=== PATIENT | male | born 1940 | race Caucasian/White ===

== ENCOUNTER 2020-10-09 19:42 | Inpatient (IN) | payer MEDICARE, MEDICAID ==
[~2020-10-09] VITALS: Ht 172.7 cm; Wt 63.6 kg
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
[2020-10-09 21:29] LABS: BASO % 1 % (0-3); EOS # 0.2 x10^3/uL (0.0-0.7); EOS % 4 % (0-3); HEMATOCRIT 37.5 % (39.0-53.0); HEMOGLOBIN 12.4 g/dL (13.0-17.5); LYMPH # 0.9 x10^3/uL (1.0-4.8); LYMPH % 22 % (24-48); MEAN CORPUSCULAR HEMOGLOBIN 31 pg (25-35); MEAN CORPUSCULAR HGB CONC 33 g/dL (31-37); MEAN CORPUSCULAR VOLUME 94 fL (79-100); MONO # 0.5 x10^3/uL (0.0-1.1); MONO % 11 % (0-9); NEUT # 2.5 x10^3uL (1.8-7.7); NEUT % 62 % (31-73); PLATELET COUNT 139 x10^3/uL (140-400); RED BLOOD COUNT 3.98 x10^6/uL (4.30-5.70); RED CELL DISTRIBUTION WIDTH 13.4 % (11.5-14.5); WHITE BLOOD COUNT 4.1 x10^3/uL (4.0-11.0)
[2020-10-09 21:37] LABS: CALCIUM 9.1 mg/dL (8.5-10.1); CREATININE 0.8 mg/dL (0.7-1.3); GFR 92.8; POTASSIUM 4.1 mmol/L (3.5-5.1)
[2020-10-09 21:44] LABS: ALBUMIN 3.4 g/dL (3.4-5.0); ALBUMIN/GLOBULIN RATIO 1.3 (1.0-1.7); MAGNESIUM 2.2 mg/dL (1.8-2.4); TOTAL BILIRUBIN 0.3 mg/dL (0.2-1.0); TOTAL PROTEIN 6.1 g/dL (6.4-8.2)
[2020-10-09] MEDS ORDERED: MIDAZOLAM HCL PF 5 MG/5 ML VIAL. IM ONE (23:00)
[2020-10-09] MEDS ORDERED: IV RINGERS SOLUTION,LACTATED 1,000 ML IV ONE (23:00)
--- NOTE | 2020-10-10 00:03 | EKG ---
[address] [address] Test Date: 2020-10-09 Test Time: 21:09:15 Pat Name: YASMIN MANTILLA Department: Room: Gender: M Director Heart: : 1940 Requested By: YENI COVARRUBIAS Order Number: [id number] Reading MD: Measurements Intervals [place] Rate: 61 P: 39 [place]: 156 QRS: 24 QRSD: 148 T: 12 QT: 426 QTc: 435 Interpretive Statements SINUS RHYTHM RIGHT BUNDLE BRANCH BLOCK ABNORMAL ECG RI6.02 No previous ECG available for comparison
[2020-10-10 00:33] LABS: BACTERIA,URINE MOD /HPF (0-FEW); BILIRUBIN,URINE NEG (NEG); CLARITY,URINE HAZY; COLOR,URINE YELLOW; GLUCOSE,URINE NEG (NEG); NITRITE,URINE NEG (NEG); RBC,URINE 0 /HPF (0-2); WBC,URINE >40 /HPF (0-4)
[2020-10-10] MEDS ORDERED: levoFLOXacin 500 MG TABLET PO ONE (01:00)
[2020-10-10] MEDS ORDERED: OMEP40CA45 PO (03:24)
[2020-10-10] MEDS ORDERED: OLAN5TAB7 PO (03:24)
[2020-10-10] MEDS ORDERED: POTASSIUM PO (03:24)
[2020-10-10] MEDS ORDERED: BUSP5TAB PO (03:24)
[2020-10-10] MEDS ORDERED: BISA-42 PO (03:24)
[2020-10-10] MEDS ORDERED: CALC625T PO (03:24)
[2020-10-10] MEDS ORDERED: DOCU100C28 PO (03:24)
[2020-10-10] MEDS ORDERED: DOXY25TA49 PO (03:24)
[2020-10-10] MEDS ORDERED: MEMA5TAB PO (03:24)
[2020-10-10] MEDS ORDERED: ATOR10TA60 PO (03:24)
[2020-10-10] MEDS ORDERED: TRAZ-120 PO (03:24)
[2020-10-10] MEDS ORDERED: MULT-658 PO (03:24)
[2020-10-10] MEDS ORDERED: POLY17PO5 PO (03:24)
[2020-10-10] MEDS ORDERED: ASPI-424 PO (03:24)
[2020-10-10] MEDS ORDERED: CITA20TA9 PO (03:24)
[2020-10-10] MEDS ORDERED: MELO15TA23 PO (03:24)
[2020-10-10] MEDS ORDERED: ACETAMINOPHEN 325 MG TABLET PO PRN (05:00)
[2020-10-10] MEDS ORDERED: MAGNESIUM HYDROXIDE 2,400 MG/30 ML ORAL.SUSP. PO PRN (05:00)
[2020-10-10] MEDS ORDERED: MAG HYDROX/AL HYDROX/SIMETH 30 ML ORAL.SUSP PO PRN (05:00)
[2020-10-10] MEDS ORDERED: METHYL SALICYLATE/MENTHOL TOPICAL OINTMENT 57GM TUBE. TP PRN (05:00)
[2020-10-10 05:02] VITALS: BP 151/78
[2020-10-10] MEDS ORDERED: BISACODYL TAB 5 MG TABLET.DR. PO PRN (05:30)
[2020-10-10] MEDS ORDERED: DOCUSATE SODIUM 100 MG CAPSULE PO PRN (05:30)
[2020-10-10] MEDS: ASPIRIN ENTERIC COATED 81 MG TABLET.DR. PO SCH (08:35)
[2020-10-10] MEDS: CITALOPRAM 20 MG TABLET. PO SCH ×2 (08:35→19:44)
[2020-10-10] MEDS: MEMANTINE 5 MG TABLET. PO SCH (08:35)
[2020-10-10] MEDS: MULTIVITAMIN with MINERAL TABLET. PO SCH (08:35)
[2020-10-10] MEDS: busPIRone 5 MG TABLET. PO SCH ×2 (08:35→20:19)
[2020-10-10] MEDS: CALCIUM POLYCARBOPHIL 625 MG TABLET PO SCH (08:36)
[2020-10-10] MEDS ORDERED: POTASSIUM 99 MG PO SCH (09:00)
[2020-10-10 12:09] LABS: THYROXINE 7.1 ug/dL (4.5-12.0)
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
[2020-10-10 16:05] VITALS: BP 103/69
[2020-10-10 16:41] LABS: THYROID STIM HORMONE (TSH) 0.442 uIU/mL (0.358-3.740)
[2020-10-10] MEDS: POLYETHYLENE GLYCOL 3350 17 GM PACKET. PO SCH (16:47)
[2020-10-10] MEDS: MELOXICAM 15 MG TABLET. PO SCH (19:44)
[2020-10-10] MEDS: PANTOPRAZOLE 40 MG TABLET. PO SCH (19:44)
[2020-10-10] MEDS: traZODone 50 MG TABLET. PO PRN (19:44)
[2020-10-10] MEDS: ATORVASTATIN CALCIUM 10 MG TABLET. PO SCH (19:44)
[2020-10-10] MEDS: DOXYLAMINE SUCCINATE 25 MG TABLET PO SCH (19:46)
[2020-10-10 23:16] LABS: HEMOGLOBIN A1C 5.4 % (4.8-5.6)
[2020-10-11 05:42] VITALS: BP 133/73
[2020-10-11] MEDS: CALCIUM POLYCARBOPHIL 625 MG TABLET PO SCH (09:08)
[2020-10-11] MEDS: busPIRone 5 MG TABLET. PO SCH ×2 (09:09→20:49)
[2020-10-11] MEDS: CITALOPRAM 20 MG TABLET. PO SCH (09:09)
[2020-10-11] MEDS: ASPIRIN ENTERIC COATED 81 MG TABLET.DR. PO SCH (09:09)
[2020-10-11] MEDS: MEMANTINE 5 MG TABLET. PO SCH (09:09)
[2020-10-11 16:28] VITALS: BP 114/74
[2020-10-11] MEDS: POLYETHYLENE GLYCOL 3350 17 GM PACKET. PO SCH (17:00)
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
[2020-10-11] MEDS: ATORVASTATIN CALCIUM 10 MG TABLET. PO SCH (20:49)
[2020-10-11] MEDS: PANTOPRAZOLE 40 MG TABLET. PO SCH (20:49)
[2020-10-11] MEDS: MELOXICAM 15 MG TABLET. PO SCH (20:49)
[2020-10-11] MEDS: DOXYLAMINE SUCCINATE 25 MG TABLET PO SCH (20:53)
[2020-10-12 06:15] VITALS: BP 144/76
[2020-10-12] MEDS: ASPIRIN ENTERIC COATED 81 MG TABLET.DR. PO SCH (08:04)
[2020-10-12] MEDS: MULTIVITAMIN with MINERAL TABLET. PO SCH (08:04)
[2020-10-12] MEDS: MEMANTINE 5 MG TABLET. PO SCH (08:05)
[2020-10-12] MEDS: CALCIUM POLYCARBOPHIL 625 MG TABLET PO SCH (08:05)
[2020-10-12] MEDS: busPIRone 5 MG TABLET. PO SCH ×2 (08:05→20:41)
[2020-10-12 16:10] VITALS: BP 107/67
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
[2020-10-12] MEDS: POLYETHYLENE GLYCOL 3350 17 GM PACKET. PO SCH (16:53)
[2020-10-12] MEDS: ATORVASTATIN CALCIUM 10 MG TABLET. PO SCH (20:41)
[2020-10-12] MEDS: PANTOPRAZOLE 40 MG TABLET. PO SCH (20:41)
[2020-10-12] MEDS: MELOXICAM 15 MG TABLET. PO SCH (20:41)
[2020-10-12] MEDS: DOXYCYCLINE HYCLATE 100 MG TABLET PO SCH (20:43)
[2020-10-12] MEDS: DOXYLAMINE SUCCINATE 25 MG TABLET PO SCH (21:00)
--- NOTE | 2020-10-12 22:27 | PN ---
DATE: 10/12/2020 SUBJECTIVE: The patient was seen today, met with the staff, chart reviewed. Staff reports he is confused, resistive to care, assisting ADLs, flat affect, poor eye contact and the patient's appetite decreased. The patient also treated for UTI. OBSERVATION: VITAL SIGNS: Temperature 97.2, blood pressure 144/76, pulse 84, respiration 18, O2 sat 100%. Slept about 7 hours last night. CURRENT MEDICATIONS: The patient's current medications include Namenda 10 mg daily that was increased from 5 to 10 today, olanzapine 2.5 mg at bedtime p.r.n., trazodone 50 mg at night p.r.n. The patient is not having any side effects LABORATORY: Reviewed. ASSESSMENT: 1. Dementia, most likely Alzheimer versus vascular with behavior disturbances. 2. Impulse control disorder, unspecified. 3. Generalized anxiety disorder. PLAN: Continue with the current treatment. LENGTH OF STAY: Ten days. ADWOA WALDEN MD DR: TETO/alvino JOB#: [id number] / [id number]
[2020-10-13 06:33] VITALS: BP 162/88
[2020-10-13] MEDS: MEMANTINE 10 MG TABLET. PO SCH (08:58)
[2020-10-13] MEDS: CITALOPRAM 20 MG TABLET. PO SCH (08:58)
[2020-10-13] MEDS: CALCIUM POLYCARBOPHIL 625 MG TABLET PO SCH (08:58)
[2020-10-13] MEDS: DOXYCYCLINE HYCLATE 100 MG TABLET PO SCH ×2 (08:58→20:35)
[2020-10-13] MEDS: busPIRone 5 MG TABLET. PO SCH ×2 (08:58→20:35)
[2020-10-13] MEDS: ASPIRIN ENTERIC COATED 81 MG TABLET.DR. PO SCH (08:58)
[2020-10-13 15:34] VITALS: BP 105/72
[2020-10-13] MEDS: POLYETHYLENE GLYCOL 3350 17 GM PACKET. PO SCH (16:55)
[2020-10-13] MEDS: MELOXICAM 15 MG TABLET. PO SCH (20:35)
[2020-10-13] MEDS: PANTOPRAZOLE 40 MG TABLET. PO SCH (20:35)
[2020-10-13] MEDS: ATORVASTATIN CALCIUM 10 MG TABLET. PO SCH (20:35)
[2020-10-13] MEDS: DOXYLAMINE SUCCINATE 25 MG TABLET PO SCH (20:35)
[2020-10-14 06:28] VITALS: BP 126/75
[2020-10-14] MEDS: MEMANTINE 10 MG TABLET. PO SCH (07:58)
[2020-10-14] MEDS: busPIRone 5 MG TABLET. PO SCH ×2 (07:58→20:34)
[2020-10-14] MEDS: ASPIRIN ENTERIC COATED 81 MG TABLET.DR. PO SCH (07:58)
[2020-10-14] MEDS: DOXYCYCLINE HYCLATE 100 MG TABLET PO SCH ×2 (07:59→20:34)
[2020-10-14] MEDS: CALCIUM POLYCARBOPHIL 625 MG TABLET PO SCH (07:59)
[2020-10-14] MEDS: CITALOPRAM 20 MG TABLET. PO SCH (07:59)
[2020-10-14 09:37] LABS: BASO % 1 % (0-3); EOS # 0.2 x10^3/uL (0.0-0.7); EOS % 4 % (0-3); HEMATOCRIT 41.7 % (39.0-53.0); HEMOGLOBIN 13.9 g/dL (13.0-17.5); LYMPH # 0.8 x10^3/uL (1.0-4.8); LYMPH % 18 % (24-48); MEAN CORPUSCULAR HEMOGLOBIN 31 pg (25-35); MEAN CORPUSCULAR HGB CONC 33 g/dL (31-37); MEAN CORPUSCULAR VOLUME 94 fL (79-100); MONO # 0.4 x10^3/uL (0.0-1.1); MONO % 9 % (0-9); NEUT # 3.2 x10^3uL (1.8-7.7); NEUT % 68 % (31-73); PLATELET COUNT 155 x10^3/uL (140-400); RED BLOOD COUNT 4.44 x10^6/uL (4.30-5.70); RED CELL DISTRIBUTION WIDTH 13.4 % (11.5-14.5); WHITE BLOOD COUNT 4.6 x10^3/uL (4.0-11.0)
[2020-10-14 09:46] LABS: ALBUMIN/GLOBULIN RATIO 1.3 (1.0-1.7); CALCIUM 9.3 mg/dL (8.5-10.1); CREATININE 0.8 mg/dL (0.7-1.3); GFR 92.8; TOTAL BILIRUBIN 0.7 mg/dL (0.2-1.0)
[2020-10-14 15:47] VITALS: BP 123/65
[2020-10-14] MEDS: POLYETHYLENE GLYCOL 3350 17 GM PACKET. PO SCH (17:20)
[2020-10-14] MEDS: PANTOPRAZOLE 40 MG TABLET. PO SCH (20:34)
[2020-10-14] MEDS: MELOXICAM 15 MG TABLET. PO SCH (20:34)
[2020-10-14] MEDS: ATORVASTATIN CALCIUM 10 MG TABLET. PO SCH (20:34)
[2020-10-14] MEDS: DOXYLAMINE SUCCINATE 25 MG TABLET PO SCH (20:35)
--- NOTE | 2020-10-14 21:59 | PDOC ---
Exam Note: Leonard Note: Late entry for 10/13/2020. Please also refer to the separate dictated note~for this date of service dictated separately.~Patient seen individually. Discussed the patient with Nursing staff reviewed the chart.~Reviewed interim history and current functioning. Reviewed vital signs,~Labs/ Radiology~and current medic ations noted below. Continue current treatment with the changes noted in the dictated addendum note Assessment: Vital Signs/I&O: Vital Signs Date Time Temp Pulse Resp B/P (MAP) Pulse Ox O2 Delivery O2 Flow Rate FiO2 10/14/20 15:47 97.6 88 17 123/65 (84) 98 10/14/20 06:28 Room Air I & O 0 10/13/20 10/13/20 10/14/20 15:00 23:00 07:00 Intake Total 960 ml 360 ml Balance 960 ml 360 ml Labs: Laboratory Tests Test 10/14/20 09:00 White Blood Count 4.6 x10^3/uL (4.0-11.0) Red Blood Count 4.44 x10^6/uL (4.30-5.70) Hemoglobin 13.9 g/dL (13.0-17.5) Hematocrit 41.7 % (39.0-53.0) Mean Corpuscular Volume 94 fL (79-100) Mean Corpuscular Hemoglobin 31 pg (25-35) Mean Corpuscular Hemoglobin Concent 33 g/dL (31-37) Red Cell Distribution Width 13.4 % (11.5-14.5) Platelet Count 155 x10^3/uL (140-400) Neutrophils (%) (Auto) 68 % (31-73) Lymphocytes (%) (Auto) 18 % (24-48) L Monocytes (%) (Auto) 9 % (0-9) Eosinophils (%) (Auto) 4 % (0-3) H Basophils (%) (Auto) 1 % (0-3) Neutrophils # (Auto) 3.2 x10^3uL (1.8-7.7) Lymphocytes # (Auto) 0.8 x10^3/uL (1.0-4.8) L Monocytes # (Auto) 0.4 x10^3/uL (0.0-1.1) Eosinophils # (Auto) 0.2 x10^3/uL (0.0-0.7) Basophils # (Auto) 0.0 x10^3/uL (0.0-0.2) Sodium Level 145 mmol/L (136-145) Potassium Level 4.0 mmol/L (3.5-5.1) Chloride Level 107 mmol/L (98-107) Carbon Dioxide Level 31 mmol/L (21-32) Anion Gap 7 (6-14) Blood Urea Nitrogen 25 mg/dL (8-26) Creatinine 0.8 mg/dL (0.7-1.3) Estimated GFR (Cockcroft-Gault) 92.8 BUN/Creatinine Ratio 31 (6-20) H Glucose Level 132 mg/dL (70-99) H Calcium Level 9.3 mg/dL (8.5-10.1) Total Bilirubin 0.7 mg/dL (0.2-1.0) Aspartate Amino Transferase (AST) 14 U/L (15-37) L Alanine Aminotransferase (ALT) 23 U/L (16-63) Alkaline Phosphatase 81 U/L (46-116) Total Protein 7.0 g/dL (6.4-8.2) Albumin 4.0 g/dL (3.4-5.0) Albumin/Globulin Ratio 1.3 (1.0-1.7) Current Medications: Meds: Laboratory Tests Test 10/14/20 09:00 White Blood Count 4.6 x10^3/uL Red Blood Count 4.44 x10^6/uL Hemoglobin 13.9 g/dL Hematocrit 41.7 % Mean Corpuscular Volume 94 fL Mean Corpuscular Hemoglobin 31 pg Mean Corpuscular Hemoglobin Concent 33 g/dL Red Cell Distribution Width 13.4 % Platelet Count 155 x10^3/uL Neutrophils (%) (Auto) 68 % Lymphocytes (%) (Auto) 18 % Monocytes (%) (Auto) 9 % Eosinophils (%) (Auto) 4 % Basophils (%) (Auto) 1 % Neutrophils # (Auto) 3.2 x10^3uL Lymphocytes # (Auto) 0.8 x10^3/uL Monocytes # (Auto) 0.4 x10^3/uL Eosinophils # (Auto) 0.2 x10^3/uL Basophils # (Auto) 0.0 x10^3/uL Sodium Level 145 mmol/L Potassium Level 4.0 mmol/L Chloride Level 107 mmol/L Carbon Dioxide Level 31 mmol/L Anion Gap 7 Blood Urea Nitrogen 25 mg/dL Creatinine 0.8 mg/dL Estimated GFR (Cockcroft-Gault) 92.8 BUN/Creatinine Ratio 31 Glucose Level 132 mg/dL Calcium Level 9.3 mg/dL Total Bilirubin 0.7 mg/dL Aspartate Amino Transf (AST/SGOT) 14 U/L Alanine Aminotransferase (ALT/SGPT) 23 U/L Alkaline Phosphatase 81 U/L Total Protein 7.0 g/dL Albumin 4.0 g/dL Albumin/Globulin Ratio 1.3 Current Medications Medications (Trade) Dose Ordered Sig/Kiera Route PRN Reason Start Time Stop Time Status Last Admin Dose Admin Midazolam HCl (Versed) 5 mg 1X ONCE IM 10/09/20 23:00 10/09/20 23:07 DC 10/09/20 23:23 Lactated Ringer's 1,000 ml @ 1,000 mls/hr 1X ONCE IV 10/09/20 23:00 10/09/20 23:59 DC Levofloxacin (Levaquin) 750 mg 1X ONCE PO 10/10/20 01:00 10/10/20 01:01 DC 10/10/20 04:27 Acetaminophen (Tylenol) 650 mg PRN Q6HRS PRN PO MILD PAIN / TEMP > 100.3'F 10/10/20 05:00 Multi-Ingredient Ointment (Analgesic Patterson) 1 gera PRN QID PRN TP MUSCLE PAIN 10/10/20 05:00 Al Hydroxide/Mg Hydroxide (Mylanta Plus Xs) 15 ml PRN AFTMEALHC PRN PO DYSPEPSIA 10/10/20 05:00 Magnesium Hydroxide (Milk Of Magnesia) 2,400 mg PRN QHS PRN PO CONSTIPATION 2ND CHOICE 10/10/20 05:00 Aspirin (Aspirin Enteric Coated) 81 mg DAILY08 PO 10/10/20 08:00 10/14/20 07:58 Atorvastatin Calcium (Lipitor) 10 mg QHS PO 10/10/20 21:00 10/14/20 20:34 Bisacodyl (Dulcolax Tab) 5 mg PRN DAILY PRN PO CONSTIPATION 1ST CHOICE 10/10/20 05:30 Buspirone HCl (Buspar) 5 mg BID PO 10/10/20 09:00 10/14/20 20:34 Calcium Polycarbophil (Fibercon) 1,250 mg DAILY PO 10/10/20 09:00 10/14/20 07:59 Citalopram Hydrobromide (CeleXA) 20 mg DAILY PO 10/10/20 09:00 10/14/20 07:59 Docusate Sodium (Colace) 100 mg PRN DAILY PRN PO HARD STOOLS 10/10/20 05:30 Meloxicam (Mobic) 15 mg HS PO 10/10/20 21:00 10/14/20 20:34 Memantine (Namenda) 5 mg DAILY PO 10/10/20 09:00 10/12/20 16:01 DC 10/12/20 08:05 Olanzapine (ZyPREXA ZYDIS) 2.5 mg PRN BID PRN PO ANXIETY / AGITATION 10/10/20 05:30 10/10/20 23:18 Polyethylene Glycol (miraLAX) 17 gm DAILYWSUP PO 10/10/20 17:00 10/14/20 17:20 Trazodone HCl (Desyrel) 50 mg PRN QHS PRN PO INSOMNIA 10/10/20 05:30 10/10/20 19:44 Doxylamine Succinate (Unisom) 25 mg QHS PO 10/10/20 21:00 10/14/20 20:35 Multivitamins/ Calcium (Thera-M Plus) 1 tab QMWF@0900 PO 10/10/20 09:00 10/12/20 08:04 Pantoprazole Sodium (Protonix) 40 mg HS PO 10/10/20 21:00 10/14/20 20:34 Non-Formulary Medication ([Potassium Tablet] ) 99 mg DAILY PO 10/10/20 09:00 UNV Doxycycline Hyclate (Vibra-Tab) 100 mg BID PO 10/12/20 21:00 10/21/20 22:00 10/14/20 20:34 Memantine (Namenda) 10 mg DAILY PO 10/13/20 09:00 10/14/20 07:58 I have reviewed the current psychotropics carefully including drug interactions. Risk benefit ratio favors no change other than as noted in my dictated progress note. Diagnosis: Problems: (1) Dementia of the Alzheimer's type with early onset with behavioral disturbance (2) Anxiety disorder, unspecified (3) Impulse control disorder, unspecified (4) Major neurocognitive disorder CHAGO CORONA MD Oct 14, 2020 21:59
[2020-10-15] MEDS: traZODone 50 MG TABLET. PO PRN (01:22)
[2020-10-15 06:11] VITALS: BP 146/77
--- NOTE | 2020-10-15 07:13 | PDOC ---
Exam Note: Leonard Note: This note is a late entry for 10/13/2020 covers elements not covered in my initial note. Subjective: Dr. Latif had covered for me from 29 September till October, and I assumed care of the patients from 13 October. I have reviewed information and interim progress notes at some length with Dr. Latif. The patient was seen individually in the evening of 10/13/2020 with Ganesh LEAL, discussed and reviewed the chart. The patient just slept 7-1/4 hours previous night. He remains confused. No behaviors noted. He takes medications. He is oriented to himself. Review of Systems: No CV, , pulmonary, eye system symptoms on review. Reliability poor. Mental Status Exam: The patient is oriented to himself. Insight and judgment, recent and remote memory, attention and concentration, fund of knowledge is poor consistent with his diagnoses. As I questioned him closely he was able to tell me his name but he is just oriented to himself. He was wearing a red shirt. Laboratory Data: Reviewed. Impression: Major neurocognitive disorder Alzheimer vascular with delusion, depression, behavioral disturbance. Impulse control disorder unspecified. Anxiety disorder unspecified. Plan: I have carefully reviewed the current psychotropics and drug interactions. Risk-benefit ratio favors no change for now. Adjust further as clinically indicated. Assessment: Vital Signs/I&O: Vital Signs Date Time Temp Pulse Resp B/P (MAP) Pulse Ox O2 Delivery O2 Flow Rate FiO2 10/15/20 06:11 97.7 60 18 146/77 (100) 98 Room Air I & O 10/14/20 10/14/20 10/15/20 15:00 23:00 07:00 Intake Total 685 ml 345 ml Balance 685 ml 345 ml Labs: Laboratory Tests Test 10/14/20 09:00 White Blood Count 4.6 x10^3/uL (4.0-11.0) Red Blood Count 4.44 x10^6/uL (4.30-5.70) Hemoglobin 13.9 g/dL (13.0-17.5) Hematocrit 41.7 % (39.0-53.0) Mean Corpuscular Volume 94 fL (79-100) Mean Corpuscular Hemoglobin 31 pg (25-35) Mean Corpuscular Hemoglobin Concent 33 g/dL (31-37) Red Cell Distribution Width 13.4 % (11.5-14.5) Platelet Count 155 x10^3/uL (140-400) Neutrophils (%) (Auto) 68 % (31-73) Lymphocytes (%) (Auto) 18 % (24-48) L Monocytes (%) (Auto) 9 % (0-9) Eosinophils (%) (Auto) 4 % (0-3) H Basophils (%) (Auto) 1 % (0-3) Neutrophils # (Auto) 3.2 x10^3uL (1.8-7.7) Lymphocytes # (Auto) 0.8 x10^3/uL (1.0-4.8) L Monocytes # (Auto) 0.4 x10^3/uL (0.0-1.1) Eosinophils # (Auto) 0.2 x10^3/uL (0.0-0.7) Basophils # (Auto) 0.0 x10^3/uL (0.0-0.2) Sodium Level 145 mmol/L (136-145) Potassium Level 4.0 mmol/L (3.5-5.1) Chloride Level 107 mmol/L (98-107) Carbon Dioxide Level 31 mmol/L (21-32) Anion Gap 7 (6-14) Blood Urea Nitrogen 25 mg/dL (8-26) Creatinine 0.8 mg/dL (0.7-1.3) Estimated GFR (Cockcroft-Gault) 92.8 BUN/Creatinine Ratio 31 (6-20) H Glucose Level 132 mg/dL (70-99) H Calcium Level 9.3 mg/dL (8.5-10.1) Total Bilirubin 0.7 mg/dL (0.2-1.0) Aspartate Amino Transferase (AST) 14 U/L (15-37) L Alanine Aminotransferase (ALT) 23 U/L (16-63) Alkaline Phosphatase 81 U/L (46-116) Total Protein 7.0 g/dL (6.4-8.2) Albumin 4.0 g/dL (3.4-5.0) Albumin/Globulin Ratio 1.3 (1.0-1.7) Current Medications: Meds: Laboratory Tests Test 10/14/20 09:00 White Blood Count 4.6 x10^3/uL Red Blood Count 4.44 x10^6/uL Hemoglobin 13.9 g/dL Hematocrit 41.7 % Mean Corpuscular Volume 94 fL Mean Corpuscular Hemoglobin 31 pg Mean Corpuscular Hemoglobin Concent 33 g/dL Red Cell Distribution Width 13.4 % Platelet Count 155 x10^3/uL Neutrophils (%) (Auto) 68 % Lymphocytes (%) (Auto) 18 % Monocytes (%) (Auto) 9 % Eosinophils (%) (Auto) 4 % Basophils (%) (Auto) 1 % Neutrophils # (Auto) 3.2 x10^3uL Lymphocytes # (Auto) 0.8 x10^3/uL Monocytes # (Auto) 0.4 x10^3/uL Eosinophils # (Auto) 0.2 x10^3/uL Basophils # (Auto) 0.0 x10^3/uL Sodium Level 145 mmol/L Potassium Level 4.0 mmol/L Chloride Level 107 mmol/L Carbon Dioxide Level 31 mmol/L Anion Gap 7 Blood Urea Nitrogen 25 mg/dL Creatinine 0.8 mg/dL Estimated GFR (Cockcroft-Gault) 92.8 BUN/Creatinine Ratio 31 Glucose Level 132 mg/dL Calcium Level 9.3 mg/dL Total Bilirubin 0.7 mg/dL Aspartate Amino Transf (AST/SGOT) 14 U/L Alanine Aminotransferase (ALT/SGPT) 23 U/L Alkaline Phosphatase 81 U/L Total Protein 7.0 g/dL Albumin 4.0 g/dL Albumin/Globulin Ratio 1.3 Current Medications Medications (Trade) Dose Ordered Sig/Kiera Route PRN Reason Start Time Stop Time Status Last Admin Dose Admin Midazolam HCl (Versed) 5 mg 1X ONCE IM 10/09/20 23:00 10/09/20 23:07 DC 10/09/20 23:23 Lactated Ringer's 1,000 ml @ 1,000 mls/hr 1X ONCE IV 10/09/20 23:00 10/09/20 23:59 DC Levofloxacin (Levaquin) 750 mg 1X ONCE PO 10/10/20 01:00 10/10/20 01:01 DC 10/10/20 04:27 Acetaminophen (Tylenol) 650 mg PRN Q6HRS PRN PO MILD PAIN / TEMP > 100.3'F 10/10/20 05:00 Multi-Ingredient Ointment (Analgesic [place]) 1 gera PRN QID PRN TP MUSCLE PAIN 10/10/20 05:00 Al Hydroxide/Mg Hydroxide (Mylanta Plus Xs) 15 ml PRN AFTMEALHC PRN PO DYSPEPSIA 10/10/20 05:00 Magnesium Hydroxide (Milk Of Magnesia) 2,400 mg PRN QHS PRN PO CONSTIPATION 2ND CHOICE 10/10/20 05:00 Aspirin (Aspirin Enteric Coated) 81 mg DAILY08 PO 10/10/20 08:00 10/14/20 07:58 Atorvastatin Calcium (Lipitor) 10 mg QHS PO 10/10/20 21:00 10/14/20 20:34 Bisacodyl (Dulcolax Tab) 5 mg PRN DAILY PRN PO CONSTIPATION 1ST CHOICE 10/10/20 05:30 Buspirone HCl (Buspar) 5 mg BID PO 10/10/20 09:00 10/14/20 20:34 Calcium Polycarbophil (Fibercon) 1,250 mg DAILY PO 10/10/20 09:00 10/14/20 07:59 Citalopram Hydrobromide (CeleXA) 20 mg DAILY PO 10/10/20 09:00 10/14/20 07:59 Docusate Sodium (Colace) 100 mg PRN DAILY PRN PO HARD STOOLS 10/10/20 05:30 Meloxicam (Mobic) 15 mg HS PO 10/10/20 21:00 10/14/20 20:34 Memantine (Namenda) 5 mg DAILY PO 10/10/20 09:00 10/12/20 16:01 DC 10/12/20 08:05 Olanzapine (ZyPREXA ZYDIS) 2.5 mg PRN BID PRN PO ANXIETY / AGITATION 10/10/20 05:30 10/10/20 23:18 Polyethylene Glycol (miraLAX) 17 gm DAILYWSUP PO 10/10/20 17:00 10/14/20 17:20 Trazodone HCl (Desyrel) 50 mg PRN QHS PRN PO INSOMNIA 10/10/20 05:30 10/15/20 01:22 Doxylamine Succinate (Unisom) 25 mg QHS PO 10/10/20 21:00 10/14/20 20:35 Multivitamins/ Calcium (Thera-M Plus) 1 tab QMWF@0900 PO 10/10/20 09:00 10/12/20 08:04 Pantoprazole Sodium (Protonix) 40 mg HS PO 10/10/20 21:00 10/14/20 20:34 Non-Formulary Medication ([Potassium Tablet] ) 99 mg DAILY PO 10/10/20 09:00 UNV Doxycycline Hyclate (Vibra-Tab) 100 mg BID PO 10/12/20 21:00 10/21/20 22:00 10/14/20 20:34 Memantine (Namenda) 10 mg DAILY PO 10/13/20 09:00 10/14/20 07:58 I have reviewed the current psychotropics carefully including drug interactions. Risk benefit ratio favors no change other than as noted in my dictated progress note. Diagnosis: Problems: (1) Dementia in Alzheimer's disease with delusions (2) Dementia in Alzheimer's disease with depression (3) Dementia, vascular, with delusions (4) Dementia, vascular, with depression (5) Dementia of the Alzheimer's type with early onset with behavioral disturbance (6) Anxiety disorder, unspecified (7) Impulse control disorder, unspecified (8) Major neurocognitive disorder CHAGO CORONA MD Oct 15, 2020 07:13
--- NOTE | 2020-10-15 07:58 | PDOC ---
Exam Note: Leonard Note: This note is a late entry for 10/14/2020 covers elements not covered in my initial note. Subjective: The patient was seen individually in the evening of 10/14/2020 with Ryan LEAL, discussed and reviewed the chart. The patient just slept 3-3/4 hours previous night. He remains confused, wandering the unit. Previous night he was combative with cares during showers, but better during the day today. Review of Systems: No CV, , pulmonary, eye system symptoms on review. Reliability poor. Mental Status Exam: As I met with the patient, he got up from his chair, stood up, was interacting quite affably but oriented just to himself. Insight and judgment, recent and remote memory, attention and concentration, fund of knowledge is poor consistent with his diagnoses. Laboratory Data: Reviewed. Impression: Major neurocognitive disorder Alzheimer vascular with delusion, depression, behavioral disturbance. Impulse control disorder unspecified. Anxiety disorder unspecified. Plan: No change from initial note. Assessment: Vital Signs/I&O: Vital Signs Date Time Temp Pulse Resp B/P (MAP) Pulse Ox O2 Delivery O2 Flow Rate FiO2 10/15/20 06:11 97.7 60 18 146/77 (100) 98 Room Air I & O 10/14/20 10/14/20 10/15/20 15:00 23:00 07:00 Intake Total 685 ml 345 ml Balance 685 ml 345 ml Labs: Laboratory Tests Test 10/14/20 09:00 White Blood Count 4.6 x10^3/uL (4.0-11.0) Red Blood Count 4.44 x10^6/uL (4.30-5.70) Hemoglobin 13.9 g/dL (13.0-17.5) Hematocrit 41.7 % (39.0-53.0) Mean Corpuscular Volume 94 fL (79-100) Mean Corpuscular Hemoglobin 31 pg (25-35) Mean Corpuscular Hemoglobin Concent 33 g/dL (31-37) Red Cell Distribution Width 13.4 % (11.5-14.5) Platelet Count 155 x10^3/uL (140-400) Neutrophils (%) (Auto) 68 % (31-73) Lymphocytes (%) (Auto) 18 % (24-48) L Monocytes (%) (Auto) 9 % (0-9) Eosinophils (%) (Auto) 4 % (0-3) H Basophils (%) (Auto) 1 % (0-3) Neutrophils # (Auto) 3.2 x10^3uL (1.8-7.7) Lymphocytes # (Auto) 0.8 x10^3/uL (1.0-4.8) L Monocytes # (Auto) 0.4 x10^3/uL (0.0-1.1) Eosinophils # (Auto) 0.2 x10^3/uL (0.0-0.7) Basophils # (Auto) 0.0 x10^3/uL (0.0-0.2) Sodium Level 145 mmol/L (136-145) Potassium Level 4.0 mmol/L (3.5-5.1) Chloride Level 107 mmol/L (98-107) Carbon Dioxide Level 31 mmol/L (21-32) Anion Gap 7 (6-14) Blood Urea Nitrogen 25 mg/dL (8-26) Creatinine 0.8 mg/dL (0.7-1.3) Estimated GFR (Cockcroft-Gault) 92.8 BUN/Creatinine Ratio 31 (6-20) H Glucose Level 132 mg/dL (70-99) H Calcium Level 9.3 mg/dL (8.5-10.1) Total Bilirubin 0.7 mg/dL (0.2-1.0) Aspartate Amino Transferase (AST) 14 U/L (15-37) L Alanine Aminotransferase (ALT) 23 U/L (16-63) Alkaline Phosphatase 81 U/L (46-116) Total Protein 7.0 g/dL (6.4-8.2) Albumin 4.0 g/dL (3.4-5.0) Albumin/Globulin Ratio 1.3 (1.0-1.7) Current Medications: Meds: Laboratory Tests Test 10/14/20 09:00 White Blood Count 4.6 x10^3/uL Red Blood Count 4.44 x10^6/uL Hemoglobin 13.9 g/dL Hematocrit 41.7 % Mean Corpuscular Volume 94 fL Mean Corpuscular Hemoglobin 31 pg Mean Corpuscular Hemoglobin Concent 33 g/dL Red Cell Distribution Width 13.4 % Platelet Count 155 x10^3/uL Neutrophils (%) (Auto) 68 % Lymphocytes (%) (Auto) 18 % Monocytes (%) (Auto) 9 % Eosinophils (%) (Auto) 4 % Basophils (%) (Auto) 1 % Neutrophils # (Auto) 3.2 x10^3uL Lymphocytes # (Auto) 0.8 x10^3/uL Monocytes # (Auto) 0.4 x10^3/uL Eosinophils # (Auto) 0.2 x10^3/uL Basophils # (Auto) 0.0 x10^3/uL Sodium Level 145 mmol/L Potassium Level 4.0 mmol/L Chloride Level 107 mmol/L Carbon Dioxide Level 31 mmol/L Anion Gap 7 Blood Urea Nitrogen 25 mg/dL Creatinine 0.8 mg/dL Estimated GFR (Cockcroft-Gault) 92.8 BUN/Creatinine Ratio 31 Glucose Level 132 mg/dL Calcium Level 9.3 mg/dL Total Bilirubin 0.7 mg/dL Aspartate Amino Transf (AST/SGOT) 14 U/L Alanine Aminotransferase (ALT/SGPT) 23 U/L Alkaline Phosphatase 81 U/L Total Protein 7.0 g/dL Albumin 4.0 g/dL Albumin/Globulin Ratio 1.3 Current Medications Medications (Trade) Dose Ordered Sig/Kiera Route PRN Reason Start Time Stop Time Status Last Admin Dose Admin Midazolam HCl (Versed) 5 mg 1X ONCE IM 10/09/20 23:00 10/09/20 23:07 DC 10/09/20 23:23 Lactated Ringer's 1,000 ml @ 1,000 mls/hr 1X ONCE IV 10/09/20 23:00 10/09/20 23:59 DC Levofloxacin (Levaquin) 750 mg 1X ONCE PO 10/10/20 01:00 10/10/20 01:01 DC 10/10/20 04:27 Acetaminophen (Tylenol) 650 mg PRN Q6HRS PRN PO MILD PAIN / TEMP > 100.3'F 10/10/20 05:00 Multi-Ingredient Ointment (Analgesic [place]) 1 gera PRN QID PRN TP MUSCLE PAIN 10/10/20 05:00 Al Hydroxide/Mg Hydroxide (Mylanta Plus Xs) 15 ml PRN AFTMEALHC PRN PO DYSPEPSIA 10/10/20 05:00 Magnesium Hydroxide (Milk Of Magnesia) 2,400 mg PRN QHS PRN PO CONSTIPATION 2ND CHOICE 10/10/20 05:00 Aspirin (Aspirin Enteric Coated) 81 mg DAILY08 PO 10/10/20 08:00 10/14/20 07:58 Atorvastatin Calcium (Lipitor) 10 mg QHS PO 10/10/20 21:00 10/14/20 20:34 Bisacodyl (Dulcolax Tab) 5 mg PRN DAILY PRN PO CONSTIPATION 1ST CHOICE 10/10/20 05:30 Buspirone HCl (Buspar) 5 mg BID PO 10/10/20 09:00 10/14/20 20:34 Calcium Polycarbophil (Fibercon) 1,250 mg DAILY PO 10/10/20 09:00 10/14/20 07:59 Citalopram Hydrobromide (CeleXA) 20 mg DAILY PO 10/10/20 09:00 10/14/20 07:59 Docusate Sodium (Colace) 100 mg PRN DAILY PRN PO HARD STOOLS 10/10/20 05:30 Meloxicam (Mobic) 15 mg HS PO 10/10/20 21:00 10/14/20 20:34 Memantine (Namenda) 5 mg DAILY PO 10/10/20 09:00 10/12/20 16:01 DC 10/12/20 08:05 Olanzapine (ZyPREXA ZYDIS) 2.5 mg PRN BID PRN PO ANXIETY / AGITATION 10/10/20 05:30 10/10/20 23:18 Polyethylene Glycol (miraLAX) 17 gm DAILYWSUP PO 10/10/20 17:00 10/14/20 17:20 Trazodone HCl (Desyrel) 50 mg PRN QHS PRN PO INSOMNIA 10/10/20 05:30 10/15/20 01:22 Doxylamine Succinate (Unisom) 25 mg QHS PO 10/10/20 21:00 10/14/20 20:35 Multivitamins/ Calcium (Thera-M Plus) 1 tab QMWF@0900 PO 10/10/20 09:00 10/12/20 08:04 Pantoprazole Sodium (Protonix) 40 mg HS PO 10/10/20 21:00 10/14/20 20:34 Non-Formulary Medication ([Potassium Tablet] ) 99 mg DAILY PO 10/10/20 09:00 UNV Doxycycline Hyclate (Vibra-Tab) 100 mg BID PO 10/12/20 21:00 10/21/20 22:00 10/14/20 20:34 Memantine (Namenda) 10 mg DAILY PO 10/13/20 09:00 10/14/20 07:58 I have reviewed the current psychotropics carefully including drug interactions. Risk benefit ratio favors no change other than as noted in my dictated progress note. Diagnosis: Problems: (1) Impulse control disorder, unspecified (2) Anxiety disorder, unspecified (3) Dementia of the Alzheimer's type with early onset with behavioral disturba nce (4) Major neurocognitive disorder (5) Dementia, vascular, with depression (6) Dementia, vascular, with delusions (7) Dementia in Alzheimer's disease with depression (8) Dementia in Alzheimer's disease with delusions CHAGO CORONA MD Oct 15, 2020 07:58
[2020-10-15] MEDS: ASPIRIN ENTERIC COATED 81 MG TABLET.DR. PO SCH (08:38)
[2020-10-15] MEDS: MEMANTINE 10 MG TABLET. PO SCH (08:39)
[2020-10-15] MEDS: MULTIVITAMIN with MINERAL TABLET. PO SCH (08:39)
[2020-10-15] MEDS: DOXYCYCLINE HYCLATE 100 MG TABLET PO SCH ×2 (08:39→19:43)
[2020-10-15] MEDS: busPIRone 5 MG TABLET. PO SCH ×2 (08:39→19:43)
[2020-10-15] MEDS: CITALOPRAM 20 MG TABLET. PO SCH (08:39)
[2020-10-15] MEDS: CALCIUM POLYCARBOPHIL 625 MG TABLET PO SCH (08:39)
[2020-10-15 16:04] VITALS: BP 88/58
[2020-10-15] MEDS: POLYETHYLENE GLYCOL 3350 17 GM PACKET. PO SCH (16:25)
[2020-10-15] MEDS: ATORVASTATIN CALCIUM 10 MG TABLET. PO SCH (19:43)
[2020-10-15] MEDS: DOXYLAMINE SUCCINATE 25 MG TABLET PO SCH (19:43)
[2020-10-15] MEDS: PANTOPRAZOLE 40 MG TABLET. PO SCH (19:43)
[2020-10-15] MEDS: MELOXICAM 15 MG TABLET. PO SCH (19:43)
[2020-10-15 20:00] VITALS: BP 109/62
--- NOTE | 2020-10-15 22:11 | PDOC ---
Exam Note: Leonadr Note: Please also refer to the separate dictated note~for this date of service dictated separately.~Patient seen individually. Discussed the patient with Nursing staff reviewed the chart.~Reviewed interim history and current functioning. Reviewed vital signs,~Labs/ Radiology~and current medications noted below. Continue current treatment with the changes noted in the dictated addendum note Assessment: Vital Signs/I&O: Vital Signs Date Time Temp Pulse Resp B/P (MAP) Pulse Ox O2 Delivery O2 Flow Rate FiO2 10/15/20 20:00 109/62 (78) 10/15/20 16:04 97.9 79 16 94 10/15/20 06:11 Room Air I & O 10/14/20 10/14/20 10/15/20 15:00 23:00 07:00 Intake Total 685 ml 345 ml Balance 685 ml 345 ml Current Medications: Meds: Current Medications Medications (Trade) Dose Ordered Sig/Kiera Route PRN Reason Start Time Stop Time Status Last Admin Dose Admin Midazolam HCl (Versed) 5 mg 1X ONCE IM 10/09/20 23:00 10/09/20 23:07 DC 10/09/20 23:23 Lactated Ringer's 1,000 ml @ 1,000 mls/hr 1X ONCE IV 10/09/20 23:00 10/09/20 23:59 DC Levofloxacin (Levaquin) 750 mg 1X ONCE PO 10/10/20 01:00 10/10/20 01:01 DC 10/10/20 04:27 Acetaminophen (Tylenol) 650 mg PRN Q6HRS PRN PO MILD PAIN / TEMP > 100.3'F 10/10/20 05:00 Multi-Ingredient Ointment (Analgesic [place]) 1 gera PRN QID PRN TP MUSCLE PAIN 10/10/20 05:00 Al Hydroxide/Mg Hydroxide (Mylanta Plus Xs) 15 ml PRN AFTMEALHC PRN PO DYSPEPSIA 10/10/20 05:00 Magnesium Hydroxide (Milk Of Magnesia) 2,400 mg PRN QHS PRN PO CONSTIPATION 2ND CHOICE 10/10/20 05:00 Aspirin (Aspirin Enteric Coated) 81 mg DAILY08 PO 10/10/20 08:00 10/15/20 08:38 Atorvastatin Calcium (Lipitor) 10 mg QHS PO 10/10/20 21:00 10/15/20 19:43 Bisacodyl (Dulcolax Tab) 5 mg PRN DAILY PRN PO CONSTIPATION 1ST CHOICE 10/10/20 05:30 Buspirone HCl (Buspar) 5 mg BID PO 10/10/20 09:00 10/15/20 19:43 Calcium Polycarbophil (Fibercon) 1,250 mg DAILY PO 10/10/20 09:00 10/15/20 08:39 Citalopram Hydrobromide (CeleXA) 20 mg DAILY PO 10/10/20 09:00 10/15/20 08:39 Docusate Sodium (Colace) 100 mg PRN DAILY PRN PO HARD STOOLS 10/10/20 05:30 Meloxicam (Mobic) 15 mg HS PO 10/10/20 21:00 10/15/20 19:43 Memantine (Namenda) 5 mg DAILY PO 10/10/20 09:00 10/12/20 16:01 DC 10/12/20 08:05 Olanzapine (ZyPREXA ZYDIS) 2.5 mg PRN BID PRN PO ANXIETY / AGITATION 10/10/20 05:30 10/10/20 23:18 Polyethylene Glycol (miraLAX) 17 gm DAILYWSUP PO 10/10/20 17:00 10/15/20 16:25 Trazodone HCl (Desyrel) 50 mg PRN QHS PRN PO INSOMNIA 10/10/20 05:30 10/15/20 01:22 Doxylamine Succinate (Unisom) 25 mg QHS PO 10/10/20 21:00 10/15/20 19:43 Multivitamins/ Calcium (Thera-M Plus) 1 tab QMWF@0900 PO 10/10/20 09:00 10/15/20 08:39 Pantoprazole Sodium (Protonix) 40 mg HS PO 10/10/20 21:00 10/15/20 19:43 Non-Formulary Medication ([Potassium Tablet] ) 99 mg DAILY PO 10/10/20 09:00 UNV Doxycycline Hyclate (Vibra-Tab) 100 mg BID PO 10/12/20 21:00 10/21/20 22:00 10/15/20 19:43 Memantine (Namenda) 10 mg DAILY PO 10/13/20 09:00 10/15/20 08:39 I have reviewed the current psychotropics carefully including drug interactions. Risk benefit ratio favors no change other than as noted in my dictated progress note. Diagnosis: Problems: (1) Impulse control disorder, unspecified (2) Anxiety disorder, unspecified (3) Dementia of the Alzheimer's type with early onset with behavioral disturbance (4) Major neurocognitive disorder (5) Dementia, vascular, with depression (6) Dementia, vascular, with delusions (7) Dementia in Alzheimer's disease with depression (8) Dementia in Alzheimer's disease with delusions CHAGO CORONA MD Oct 15, 2020 22:11
[2020-10-16 06:01] VITALS: BP 109/70
[2020-10-16] MEDS: ASPIRIN ENTERIC COATED 81 MG TABLET.DR. PO SCH (07:50)
[2020-10-16] MEDS: busPIRone 5 MG TABLET. PO SCH ×2 (07:50→20:43)
[2020-10-16] MEDS: MEMANTINE 10 MG TABLET. PO SCH (07:50)
[2020-10-16] MEDS: CITALOPRAM 20 MG TABLET. PO SCH (07:50)
[2020-10-16] MEDS: DOXYCYCLINE HYCLATE 100 MG TABLET PO SCH ×2 (07:50→20:44)
[2020-10-16] MEDS: CALCIUM POLYCARBOPHIL 625 MG TABLET PO SCH (07:50)
--- NOTE | 2020-10-16 08:27 | PDOC ---
Exam Note: Leonard Note: This note is a late entry for 10/15/2020 covers elements not covered in my initial note. Subjective: The patient was seen individually in the evening of 10/15/2020 with Vickie LEAL, discussed and reviewed the chart. The patient just slept 7 hours previous night. He has been confused, wandering, oriented to name. He does UTI on doxycycline and weights have been checked daily. Review of Systems: No CV, , pulmonary, eye system symptoms on review. Mental Status Exam: The patient is oriented to himself. He is quite confused as I met with him in the evening. He was having chocolate ice-cream and able to recognize this. Insight and judgment, recent and remote memory, attention and concentration, fund of knowledge is poor consistent with his diagnoses. Laboratory Data: Reviewed. Impression: Major neurocognitive disorder Alzheimer vascular with delusion, depression, behavioral disturbance. Impulse control disorder unspecified. Anxiety disorder unspecified. Plan: No change from initial note. Treat the UTI. Adjust as clinically indicated. Assessment: Vital Signs/I&O: Vital Signs Date Time Temp Pulse Resp B/P (MAP) Pulse Ox O2 Delivery O2 Flow Rate FiO2 10/16/20 06:01 97.2 67 16 109/70 (83) 96 10/15/20 06:11 Room Air I & O 10/15/20 10/15/20 10/16/20 15:00 23:00 07:00 Intake Total 720 ml 580 ml Balance 720 ml 580 ml Current Medications: Meds: Current Medications Medications (Trade) Dose Ordered Sig/Kiera Route PRN Reason Start Time Stop Time Status Last Admin Dose Admin Midazolam HCl (Versed) 5 mg 1X ONCE IM 10/09/20 23:00 10/09/20 23:07 DC 10/09/20 23:23 Lactated Ringer's 1,000 ml @ 1,000 mls/hr 1X ONCE IV 10/09/20 23:00 10/09/20 23:59 DC Levofloxacin (Levaquin) 750 mg 1X ONCE PO 10/10/20 01:00 10/10/20 01:01 DC 10/10/20 04:27 Acetaminophen (Tylenol) 650 mg PRN Q6HRS PRN PO MILD PAIN / TEMP > 100.3'F 10/10/20 05:00 Multi-Ingredient Ointment (Analgesic [place]) 1 gera PRN QID PRN TP MUSCLE PAIN 10/10/20 05:00 Al Hydroxide/Mg Hydroxide (Mylanta Plus Xs) 15 ml PRN AFTMEALHC PRN PO DYSPEPSIA 10/10/20 05:00 Magnesium Hydroxide (Milk Of Magnesia) 2,400 mg PRN QHS PRN PO CONSTIPATION 2ND CHOICE 10/10/20 05:00 Aspirin (Aspirin Enteric Coated) 81 mg DAILY08 PO 10/10/20 08:00 10/16/20 07:50 Atorvastatin Calcium (Lipitor) 10 mg QHS PO 10/10/20 21:00 10/15/20 19:43 Bisacodyl (Dulcolax Tab) 5 mg PRN DAILY PRN PO CONSTIPATION 1ST CHOICE 10/10/20 05:30 Buspirone HCl (Buspar) 5 mg BID PO 10/10/20 09:00 10/16/20 07:50 Calcium Polycarbophil (Fibercon) 1,250 mg DAILY PO 10/10/20 09:00 10/16/20 07:50 Citalopram Hydrobromide (CeleXA) 20 mg DAILY PO 10/10/20 09:00 10/16/20 07:50 Docusate Sodium (Colace) 100 mg PRN DAILY PRN PO HARD STOOLS 10/10/20 05:30 Meloxicam (Mobic) 15 mg HS PO 10/10/20 21:00 10/15/20 19:43 Memantine (Namenda) 5 mg DAILY PO 10/10/20 09:00 10/12/20 16:01 DC 10/12/20 08:05 Olanzapine (ZyPREXA ZYDIS) 2.5 mg PRN BID PRN PO ANXIETY / AGITATION 10/10/20 05:30 10/10/20 23:18 Polyethylene Glycol (miraLAX) 17 gm DAILYWSUP PO 10/10/20 17:00 10/15/20 16:25 Trazodone HCl (Desyrel) 50 mg PRN QHS PRN PO INSOMNIA 10/10/20 05:30 10/15/20 01:22 Doxylamine Succinate (Unisom) 25 mg QHS PO 10/10/20 21:00 10/15/20 19:43 Multivitamins/ Calcium (Thera-M Plus) 1 tab QMWF@0900 PO 10/10/20 09:00 10/15/20 08:39 Pantoprazole Sodium (Protonix) 40 mg HS PO 10/10/20 21:00 10/15/20 19:43 Non-Formulary Medication ([Potassium Tablet] ) 99 mg DAILY PO 10/10/20 09:00 UNV Doxycycline Hyclate (Vibra-Tab) 100 mg BID PO 10/12/20 21:00 10/21/20 22:00 10/16/20 07:50 Memantine (Namenda) 10 mg DAILY PO 10/13/20 09:00 10/16/20 07:50 Lactobacillus Rhamnosus (Culturelle) 1 cap BID PO 10/16/20 09:00 I have reviewed the current psychotropics carefully including drug interactions. Risk benefit ratio favors no change other than as noted in my dictated progress note. Diagnosis: Problems: (1) Impulse control disorder, unspecified (2) Anxiety disorder, unspecified (3) Dementia of the Alzheimer's type with early onset with behavioral disturbance (4) Major neurocognitive disorder (5) Dementia, vascular, with depression (6) Dementia, vascular, with delusions (7) Dementia in Alzheimer's disease with depression (8) Dementia in Alzheimer's disease with delusions CHAGO CORONA MD Oct 16, 2020 08:27
[2020-10-16] MEDS: LACTOBACILLUS RHAMNOSUS GG 1 CAPSULE. PO SCH ×2 (14:22→20:44)
[2020-10-16 16:18] VITALS: BP 132/85
[2020-10-16] MEDS: POLYETHYLENE GLYCOL 3350 17 GM PACKET. PO SCH (16:58)
[2020-10-16] MEDS: PANTOPRAZOLE 40 MG TABLET. PO SCH (20:43)
[2020-10-16] MEDS: MELOXICAM 15 MG TABLET. PO SCH (20:43)
[2020-10-16] MEDS: ATORVASTATIN CALCIUM 10 MG TABLET. PO SCH (20:44)
[2020-10-16] MEDS: MELATONIN 3 MG TABLET PO SCH (20:47)
--- NOTE | 2020-10-16 21:52 | PDOC ---
Exam Note: Leonard Note: Please also refer to the separate dictated note~for this date of service dictated separately.~Patient seen individually. Discussed the patient with Nursing staff reviewed the chart.~Reviewed interim history and current functioning. Reviewed vital signs,~Labs/ Radiology~and current medications noted below. Continue current treatment with the changes noted in the dictated addendum note Assessment: Vital Signs/I&O: Vital Signs Date Time Temp Pulse Resp B/P (MAP) Pulse Ox O2 Delivery O2 Flow Rate FiO2 10/16/20 16:18 97.4 96 20 132/85 (101) 95 10/15/20 06:11 Room Air I & O 10/15/20 10/15/20 10/16/20 15:00 23:00 07:00 Intake Total 720 ml 580 ml Balance 720 ml 580 ml Current Medications: Meds: Current Medications Medications (Trade) Dose Ordered Sig/Kiera Route PRN Reason Start Time Stop Time Status Last Admin Dose Admin Midazolam HCl (Versed) 5 mg 1X ONCE IM 10/09/20 23:00 10/09/20 23:07 DC 10/09/20 23:23 Lactated Ringer's 1,000 ml @ 1,000 mls/hr 1X ONCE IV 10/09/20 23:00 10/09/20 23:59 DC Levofloxacin (Levaquin) 750 mg 1X ONCE PO 10/10/20 01:00 10/10/20 01:01 DC 10/10/20 04:27 Acetaminophen (Tylenol) 650 mg PRN Q6HRS PRN PO MILD PAIN / TEMP > 100.3'F 10/10/20 05:00 Multi-Ingredient Ointment (Analgesic [place]) 1 gera PRN QID PRN TP MUSCLE PAIN 10/10/20 05:00 Al Hydroxide/Mg Hydroxide (Mylanta Plus Xs) 15 ml PRN AFTMEALHC PRN PO DYSPEPSIA 10/10/20 05:00 Magnesium Hydroxide (Milk Of Magnesia) 2,400 mg PRN QHS PRN PO CONSTIPATION 2ND CHOICE 10/10/20 05:00 Aspirin (Aspirin Enteric Coated) 81 mg DAILY08 PO 10/10/20 08:00 10/16/20 07:50 Atorvastatin Calcium (Lipitor) 10 mg QHS PO 10/10/20 21:00 10/16/20 20:44 Bisacodyl (Dulcolax Tab) 5 mg PRN DAILY PRN PO CONSTIPATION 1ST CHOICE 10/10/20 05:30 Buspirone HCl (Buspar) 5 mg BID PO 10/10/20 09:00 10/16/20 20:43 Calcium Polycarbophil (Fibercon) 1,250 mg DAILY PO 10/10/20 09:00 10/16/20 07:50 Citalopram Hydrobromide (CeleXA) 20 mg DAILY PO 10/10/20 09:00 10/16/20 07:50 Docusate Sodium (Colace) 100 mg PRN DAILY PRN PO HARD STOOLS 10/10/20 05:30 Meloxicam (Mobic) 15 mg HS PO 10/10/20 21:00 10/16/20 20:43 Memantine (Namenda) 5 mg DAILY PO 10/10/20 09:00 10/12/20 16:01 DC 10/12/20 08:05 Olanzapine (ZyPREXA ZYDIS) 2.5 mg PRN BID PRN PO ANXIETY / AGITATION 10/10/20 05:30 10/10/20 23:18 Polyethylene Glycol (miraLAX) 17 gm DAILYWSUP PO 10/10/20 17:00 10/16/20 16:58 Trazodone HCl (Desyrel) 50 mg PRN QHS PRN PO INSOMNIA 10/10/20 05:30 10/15/20 01:22 Doxylamine Succinate (Unisom) 25 mg QHS PO 10/10/20 21:00 10/16/20 17:38 DC 10/15/20 19:43 Multivitamins/ Calcium (Thera-M Plus) 1 tab QMWF@0900 PO 10/10/20 09:00 10/15/20 08:39 Pantoprazole Sodium (Protonix) 40 mg HS PO 10/10/20 21:00 10/16/20 20:43 Non-Formulary Medication ([Potassium Tablet] ) 99 mg DAILY PO 10/10/20 09:00 UNV Doxycycline Hyclate (Vibra-Tab) 100 mg BID PO 10/12/20 21:00 10/21/20 22:00 10/16/20 20:44 Memantine (Namenda) 10 mg DAILY PO 10/13/20 09:00 10/16/20 07:50 Lactobacillus Rhamnosus (Culturelle) 1 cap BID PO 10/16/20 09:00 10/16/20 20:44 Melatonin (Melatonin) 3 mg HS PO 10/16/20 21:00 10/16/20 20:47 Current Medications Medications (Trade) Dose Ordered Sig/Kiera Route PRN Reason Start Time Stop Time Status Last Admin Dose Admin Lactobacillus Rhamnosus (Culturelle) 1 cap BID PO 10/16/20 09:00 10/16/20 20:44 Melatonin (Melatonin) 3 mg HS PO 10/16/20 21:00 10/16/20 20:47 I have reviewed the current psychotropics carefully including drug interactions. Risk benefit ratio favors no change other than as noted in my dictated progress note. 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
[2020-10-17 06:29] VITALS: BP 134/77
--- NOTE | 2020-10-17 07:31 | PDOC ---
Exam Note: Leonard Note: This note is a late entry for 10/16/2020 covers elements not covered in my initial note. Subjective: The patient was seen individually in the evening of 10/16/2020 with Vickie LEAL, discussed and reviewed the chart. The patient just slept 6-1/4 hours previous night. He has been confused. He has not been agitated or aggressive. Review of Systems: No CV, , pulmonary, eye system symptoms on review. Mental Status Exam: The patient is oriented to himself. Insight and judgment, recent and remote memory, attention and concentration, fund of knowledge is poor consistent with his diagnoses. Laboratory Data: Reviewed. Impression: Major neurocognitive disorder Alzheimer vascular with delusion, depression, behavioral disturbance. Impulse control disorder unspecified. Anxiety disorder unspecified. Plan: No change from initial note. We will go ahead and stop Unisom 25 mg h.s. given his dementia and the potential anticholinergic side effects worsening some of the confusion and we will in place of this start him on melatonin 3 mg h.s. Maintain Namenda, trazodone p.r.n., Zyprexa p.r.n., BuSpar and Celexa unchanged for now. Assessment: Vital Signs/I&O: Vital Signs Date Time Temp Pulse Resp B/P (MAP) Pulse Ox O2 Delivery O2 Flow Rate FiO2 10/17/20 06:29 97.9 67 20 134/77 (96) 98 10/15/20 06:11 Room Air I & O 10/16/20 10/16/20 10/17/20 15:00 23:00 07:00 Intake Total 840 ml 360 ml Balance 840 ml 360 ml Current Medications: Meds: Current Medications Medications (Trade) Dose Ordered Sig/Kiera Route PRN Reason Start Time Stop Time Status Last Admin Dose Admin Midazolam HCl (Versed) 5 mg 1X ONCE IM 10/09/20 23:00 10/09/20 23:07 DC 10/09/20 23:23 Lactated Ringer's 1,000 ml @ 1,000 mls/hr 1X ONCE IV 10/09/20 23:00 10/09/20 23:59 DC Levofloxacin (Levaquin) 750 mg 1X ONCE PO 10/10/20 01:00 10/10/20 01:01 DC 10/10/20 04:27 Acetaminophen (Tylenol) 650 mg PRN Q6HRS PRN PO MILD PAIN / TEMP > 100.3'F 10/10/20 05:00 Multi-Ingredient Ointment (Analgesic [place]) 1 gera PRN QID PRN TP MUSCLE PAIN 10/10/20 05:00 Al Hydroxide/Mg Hydroxide (Mylanta Plus Xs) 15 ml PRN AFTMEALHC PRN PO DYSPEPSIA 10/10/20 05:00 Magnesium Hydroxide (Milk Of Magnesia) 2,400 mg PRN QHS PRN PO CONSTIPATION 2ND CHOICE 10/10/20 05:00 Aspirin (Aspirin Enteric Coated) 81 mg DAILY08 PO 10/10/20 08:00 10/16/20 07:50 Atorvastatin Calcium (Lipitor) 10 mg QHS PO 10/10/20 21:00 10/16/20 20:44 Bisacodyl (Dulcolax Tab) 5 mg PRN DAILY PRN PO CONSTIPATION 1ST CHOICE 10/10/20 05:30 Buspirone HCl (Buspar) 5 mg BID PO 10/10/20 09:00 10/16/20 20:43 Calcium Polycarbophil (Fibercon) 1,250 mg DAILY PO 10/10/20 09:00 10/16/20 07:50 Citalopram Hydrobromide (CeleXA) 20 mg DAILY PO 10/10/20 09:00 10/16/20 07:50 Docusate Sodium (Colace) 100 mg PRN DAILY PRN PO HARD STOOLS 10/10/20 05:30 Meloxicam (Mobic) 15 mg HS PO 10/10/20 21:00 10/16/20 20:43 Memantine (Namenda) 5 mg DAILY PO 10/10/20 09:00 10/12/20 16:01 DC 10/12/20 08:05 Olanzapine (ZyPREXA ZYDIS) 2.5 mg PRN BID PRN PO ANXIETY / AGITATION 10/10/20 05:30 10/10/20 23:18 Polyethylene Glycol (miraLAX) 17 gm DAILYWSUP PO 10/10/20 17:00 10/16/20 16:58 Trazodone HCl (Desyrel) 50 mg PRN QHS PRN PO INSOMNIA 10/10/20 05:30 10/15/20 01:22 Doxylamine Succinate (Unisom) 25 mg QHS PO 10/10/20 21:00 10/16/20 17:38 DC 10/15/20 19:43 Multivitamins/ Calcium (Thera-M Plus) 1 tab QMWF@0900 PO 10/10/20 09:00 10/15/20 08:39 Pantoprazole Sodium (Protonix) 40 mg HS PO 10/10/20 21:00 10/16/20 20:43 Non-Formulary Medication ([Potassium Tablet] ) 99 mg DAILY PO 10/10/20 09:00 UNV Doxycycline Hyclate (Vibra-Tab) 100 mg BID PO 10/12/20 21:00 10/21/20 22:00 10/16/20 20:44 Memantine (Namenda) 10 mg DAILY PO 10/13/20 09:00 10/16/20 07:50 Lactobacillus Rhamnosus (Culturelle) 1 cap BID PO 10/16/20 09:00 10/16/20 20:44 Melatonin (Melatonin) 3 mg HS PO 10/16/20 21:00 10/16/20 20:47 Current Medications Medications (Trade) Dose Ordered Sig/Kiera Route PRN Reason Start Time Stop Time Status Last Admin Dose Admin Lactobacillus Rhamnosus (Culturelle) 1 cap BID PO 10/16/20 09:00 10/16/20 20:44 Melatonin (Melatonin) 3 mg HS PO 10/16/20 21:00 10/16/20 20:47 I have reviewed the current psychotropics carefully including drug interactions. Risk benefit ratio favors no change other than as noted in my dictated progress note. 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
[2020-10-17] MEDS: DOXYCYCLINE HYCLATE 100 MG TABLET PO SCH ×2 (09:36→21:08)
[2020-10-17] MEDS: LACTOBACILLUS RHAMNOSUS GG 1 CAPSULE. PO SCH ×2 (09:36→21:08)
[2020-10-17] MEDS: MEMANTINE 10 MG TABLET. PO SCH (09:36)
[2020-10-17] MEDS: MULTIVITAMIN with MINERAL TABLET. PO SCH (09:36)
[2020-10-17] MEDS: CALCIUM POLYCARBOPHIL 625 MG TABLET PO SCH (09:36)
[2020-10-17] MEDS: busPIRone 5 MG TABLET. PO SCH ×2 (09:36→21:08)
[2020-10-17] MEDS: ASPIRIN ENTERIC COATED 81 MG TABLET.DR. PO SCH (09:36)
[2020-10-17] MEDS: CITALOPRAM 20 MG TABLET. PO SCH (09:36)
[2020-10-17 15:48] VITALS: BP 110/70
[2020-10-17] MEDS: POLYETHYLENE GLYCOL 3350 17 GM PACKET. PO SCH (17:21)
[2020-10-17] MEDS: PANTOPRAZOLE 40 MG TABLET. PO SCH (21:08)
[2020-10-17] MEDS: MELOXICAM 15 MG TABLET. PO SCH (21:08)
[2020-10-17] MEDS: MELATONIN 3 MG TABLET PO SCH (21:08)
[2020-10-17] MEDS: ATORVASTATIN CALCIUM 10 MG TABLET. PO SCH (21:08)
--- NOTE | 2020-10-17 21:55 | PDOC ---
Exam Note: Leonard Note: Please also refer to the separate dictated note~for this date of service dictated separately.~Patient seen individually. Discussed the patient with Nursing staff reviewed the chart.~Reviewed interim history and current functioning. Reviewed vital signs,~Labs/ Radiology~and current medications noted below. Continue current treatment with the changes noted in the dictated addendum note Assessment: Vital Signs/I&O: Vital Signs Date Time Temp Pulse Resp B/P (MAP) Pulse Ox O2 Delivery O2 Flow Rate FiO2 10/17/20 15:48 97.7 65 16 110/70 (83) 96 10/15/20 06:11 Room Air I & O 10/16/20 10/16/20 10/17/20 15:00 23:00 07:00 Intake Total 840 ml 360 ml Balance 840 ml 360 ml Current Medications: Meds: Current Medications Medications (Trade) Dose Ordered Sig/Kiera Route PRN Reason Start Time Stop Time Status Last Admin Dose Admin Midazolam HCl (Versed) 5 mg 1X ONCE IM 10/09/20 23:00 10/09/20 23:07 DC 10/09/20 23:23 Lactated Ringer's 1,000 ml @ 1,000 mls/hr 1X ONCE IV 10/09/20 23:00 10/09/20 23:59 DC Levofloxacin (Levaquin) 750 mg 1X ONCE PO 10/10/20 01:00 10/10/20 01:01 DC 10/10/20 04:27 Acetaminophen (Tylenol) 650 mg PRN Q6HRS PRN PO MILD PAIN / TEMP > 100.3'F 10/10/20 05:00 Multi-Ingredient Ointment (Analgesic [place]) 1 gera PRN QID PRN TP MUSCLE PAIN 10/10/20 05:00 Al Hydroxide/Mg Hydroxide (Mylanta Plus Xs) 15 ml PRN AFTMEALHC PRN PO DYSPEPSIA 10/10/20 05:00 Magnesium Hydroxide (Milk Of Magnesia) 2,400 mg PRN QHS PRN PO CONSTIPATION 2ND CHOICE 10/10/20 05:00 Aspirin (Aspirin Enteric Coated) 81 mg DAILY08 PO 10/10/20 08:00 10/17/20 09:36 Atorvastatin Calcium (Lipitor) 10 mg QHS PO 10/10/20 21:00 10/17/20 21:08 Bisacodyl (Dulcolax Tab) 5 mg PRN DAILY PRN PO CONSTIPATION 1ST CHOICE 10/10/20 05:30 Buspirone HCl (Buspar) 5 mg BID PO 10/10/20 09:00 10/17/20 21:08 Calcium Polycarbophil (Fibercon) 1,250 mg DAILY PO 10/10/20 09:00 10/17/20 09:36 Citalopram Hydrobromide (CeleXA) 20 mg DAILY PO 10/10/20 09:00 10/17/20 09:36 Docusate Sodium (Colace) 100 mg PRN DAILY PRN PO HARD STOOLS 10/10/20 05:30 Meloxicam (Mobic) 15 mg HS PO 10/10/20 21:00 10/17/20 21:08 Memantine (Namenda) 5 mg DAILY PO 10/10/20 09:00 10/12/20 16:01 DC 10/12/20 08:05 Olanzapine (ZyPREXA ZYDIS) 2.5 mg PRN BID PRN PO ANXIETY / AGITATION 10/10/20 05:30 10/10/20 23:18 Polyethylene Glycol (miraLAX) 17 gm DAILYWSUP PO 10/10/20 17:00 10/17/20 17:21 Trazodone HCl (Desyrel) 50 mg PRN QHS PRN PO INSOMNIA 10/10/20 05:30 10/15/20 01:22 Doxylamine Succinate (Unisom) 25 mg QHS PO 10/10/20 21:00 10/16/20 17:38 DC 10/15/20 19:43 Multivitamins/ Calcium (Thera-M Plus) 1 tab QMWF@0900 PO 10/10/20 09:00 10/17/20 09:36 Pantoprazole Sodium (Protonix) 40 mg HS PO 10/10/20 21:00 10/17/20 21:08 Non-Formulary Medication ([Potassium Tablet] ) 99 mg DAILY PO 10/10/20 09:00 UNV Doxycycline Hyclate (Vibra-Tab) 100 mg BID PO 10/12/20 21:00 10/21/20 22:00 10/17/20 21:08 Memantine (Namenda) 10 mg DAILY PO 10/13/20 09:00 10/17/20 09:36 Lactobacillus Rhamnosus (Culturelle) 1 cap BID PO 10/16/20 09:00 10/17/20 21:08 Melatonin (Melatonin) 3 mg HS PO 10/16/20 21:00 10/17/20 21:08 I have reviewed the current psychotropics carefully including drug interactions. Risk benefit ratio favors no change other than as noted in my dictated progress note. 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
[2020-10-18 06:17] VITALS: BP 152/88
--- NOTE | 2020-10-18 06:57 | PDOC ---
Exam Note: Leonard Note: This note is a late entry for 10/17/2020 covers elements not covered in my initial note. Subjective: The patient was seen individually in the evening of 10/17/2020 with Gabby LEAL, discussed and reviewed the chart. The patient just slept 3-1/4 hours previous night. He has been confused. He was irritable in the morning, better later in the afternoon. Review of Systems: No CV, , pulmonary, eye system symptoms on review. Mental Status Exam: The patient is oriented to himself. Insight and judgment, recent and remote memory, attention and concentration, fund of knowledge is poor consistent with his diagnoses. Laboratory Data: Reviewed. Impression: Major neurocognitive disorder Alzheimer vascular with delusion, depression, behavioral disturbance. Impulse control disorder unspecified. Anxiety disorder unspecified. Plan: No change from initial note. Assessment: Vital Signs/I&O: Vital Signs Date Time Temp Pulse Resp B/P (MAP) Pulse Ox O2 Delivery O2 Flow Rate FiO2 10/18/20 06:17 97.6 77 16 152/88 (109) 98 10/15/20 06:11 Room Air I & O 10/17/20 10/17/20 10/18/20 15:00 23:00 07:00 Intake Total 720 ml 340 ml Balance 720 ml 340 ml Current Medications: Meds: Current Medications Medications (Trade) Dose Ordered Sig/Kiera Route PRN Reason Start Time Stop Time Status Last Admin Dose Admin Midazolam HCl (Versed) 5 mg 1X ONCE IM 10/09/20 23:00 10/09/20 23:07 DC 10/09/20 23:23 Lactated Ringer's 1,000 ml @ 1,000 mls/hr 1X ONCE IV 10/09/20 23:00 10/09/20 23:59 DC Levofloxacin (Levaquin) 750 mg 1X ONCE PO 10/10/20 01:00 10/10/20 01:01 DC 10/10/20 04:27 Acetaminophen (Tylenol) 650 mg PRN Q6HRS PRN PO MILD PAIN / TEMP > 100.3'F 10/10/20 05:00 Multi-Ingredient Ointment (Analgesic [place]) 1 gera PRN QID PRN TP MUSCLE PAIN 10/10/20 05:00 Al Hydroxide/Mg Hydroxide (Mylanta Plus Xs) 15 ml PRN AFTMEALHC PRN PO DYSPEPSIA 10/10/20 05:00 Magnesium Hydroxide (Milk Of Magnesia) 2,400 mg PRN QHS PRN PO CONSTIPATION 2ND CHOICE 10/10/20 05:00 Aspirin (Aspirin Enteric Coated) 81 mg DAILY08 PO 10/10/20 08:00 10/17/20 09:36 Atorvastatin Calcium (Lipitor) 10 mg QHS PO 10/10/20 21:00 10/17/20 21:08 Bisacodyl (Dulcolax Tab) 5 mg PRN DAILY PRN PO CONSTIPATION 1ST CHOICE 10/10/20 05:30 Buspirone HCl (Buspar) 5 mg BID PO 10/10/20 09:00 10/17/20 21:08 Calcium Polycarbophil (Fibercon) 1,250 mg DAILY PO 10/10/20 09:00 10/17/20 09:36 Citalopram Hydrobromide (CeleXA) 20 mg DAILY PO 10/10/20 09:00 10/17/20 09:36 Docusate Sodium (Colace) 100 mg PRN DAILY PRN PO HARD STOOLS 10/10/20 05:30 Meloxicam (Mobic) 15 mg HS PO 10/10/20 21:00 10/17/20 21:08 Memantine (Namenda) 5 mg DAILY PO 10/10/20 09:00 10/12/20 16:01 DC 10/12/20 08:05 Olanzapine (ZyPREXA ZYDIS) 2.5 mg PRN BID PRN PO ANXIETY / AGITATION 10/10/20 05:30 10/10/20 23:18 Polyethylene Glycol (miraLAX) 17 gm DAILYWSUP PO 10/10/20 17:00 10/17/20 17:21 Trazodone HCl (Desyrel) 50 mg PRN QHS PRN PO INSOMNIA 10/10/20 05:30 10/15/20 01:22 Doxylamine Succinate (Unisom) 25 mg QHS PO 10/10/20 21:00 10/16/20 17:38 DC 10/15/20 19:43 Multivitamins/ Calcium (Thera-M Plus) 1 tab QMWF@0900 PO 10/10/20 09:00 10/17/20 09:36 Pantoprazole Sodium (Protonix) 40 mg HS PO 10/10/20 21:00 10/17/20 21:08 Non-Formulary Medication ([Potassium Tablet] ) 99 mg DAILY PO 10/10/20 09:00 UNV Doxycycline Hyclate (Vibra-Tab) 100 mg BID PO 10/12/20 21:00 10/21/20 22:00 10/17/20 21:08 Memantine (Namenda) 10 mg DAILY PO 10/13/20 09:00 10/17/20 09:36 Lactobacillus Rhamnosus (Culturelle) 1 cap BID PO 10/16/20 09:00 10/17/20 21:08 Melatonin (Melatonin) 3 mg HS PO 10/16/20 21:00 10/17/20 21:08 I have reviewed the current psychotropics carefully including drug interactions. Risk benefit ratio favors no change other than as noted in my dictated progress note. 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
[2020-10-18] MEDS: MEMANTINE 10 MG TABLET. PO SCH (09:02)
[2020-10-18] MEDS: DOXYCYCLINE HYCLATE 100 MG TABLET PO SCH ×2 (09:02→20:44)
[2020-10-18] MEDS: LACTOBACILLUS RHAMNOSUS GG 1 CAPSULE. PO SCH ×2 (09:02→20:44)
[2020-10-18] MEDS: ASPIRIN ENTERIC COATED 81 MG TABLET.DR. PO SCH (09:02)
[2020-10-18] MEDS: CITALOPRAM 20 MG TABLET. PO SCH (09:02)
[2020-10-18] MEDS: CALCIUM POLYCARBOPHIL 625 MG TABLET PO SCH (09:02)
[2020-10-18] MEDS: busPIRone 5 MG TABLET. PO SCH ×2 (09:02→20:44)
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
[2020-10-18 16:03] VITALS: BP 126/73
[2020-10-18] MEDS: POLYETHYLENE GLYCOL 3350 17 GM PACKET. PO SCH (16:58)
[2020-10-18] MEDS: MELOXICAM 15 MG TABLET. PO SCH (20:44)
[2020-10-18] MEDS: PANTOPRAZOLE 40 MG TABLET. PO SCH (20:44)
[2020-10-18] MEDS: ATORVASTATIN CALCIUM 10 MG TABLET. PO SCH (20:44)
[2020-10-18] MEDS: MELATONIN 3 MG TABLET PO SCH (20:44)
--- NOTE | 2020-10-18 22:13 | PDOC ---
Exam Note: Leonard Note: Please also refer to the separate dictated note~for this date of service dictated separately.~Patient seen individually. Discussed the patient with Nursing staff reviewed the chart.~Reviewed interim history and current functioning. Reviewed vital signs,~Labs/ Radiology~and current medications noted below. Continue current treatment with the changes noted in the dictated addendum note Assessment: Vital Signs/I&O: Vital Signs Date Time Temp Pulse Resp B/P (MAP) Pulse Ox O2 Delivery O2 Flow Rate FiO2 10/18/20 16:03 98.4 60 18 126/73 (90) 96 10/15/20 06:11 Room Air I & O 10/17/20 10/17/20 10/18/20 15:00 23:00 07:00 Intake Total 720 ml 340 ml Balance 720 ml 340 ml Current Medications: Meds: Current Medications Medications (Trade) Dose Ordered Sig/Kiera Route PRN Reason Start Time Stop Time Status Last Admin Dose Admin Midazolam HCl (Versed) 5 mg 1X ONCE IM 10/09/20 23:00 10/09/20 23:07 DC 10/09/20 23:23 Lactated Ringer's 1,000 ml @ 1,000 mls/hr 1X ONCE IV 10/09/20 23:00 10/09/20 23:59 DC Levofloxacin (Levaquin) 750 mg 1X ONCE PO 10/10/20 01:00 10/10/20 01:01 DC 10/10/20 04:27 Acetaminophen (Tylenol) 650 mg PRN Q6HRS PRN PO MILD PAIN / TEMP > 100.3'F 10/10/20 05:00 Multi-Ingredient Ointment (Analgesic [place]) 1 gera PRN QID PRN TP MUSCLE PAIN 10/10/20 05:00 Al Hydroxide/Mg Hydroxide (Mylanta Plus Xs) 15 ml PRN AFTMEALHC PRN PO DYSPEPSIA 10/10/20 05:00 Magnesium Hydroxide (Milk Of Magnesia) 2,400 mg PRN QHS PRN PO CONSTIPATION 2ND CHOICE 10/10/20 05:00 Aspirin (Aspirin Enteric Coated) 81 mg DAILY08 PO 10/10/20 08:00 10/18/20 09:02 Atorvastatin Calcium (Lipitor) 10 mg QHS PO 10/10/20 21:00 10/18/20 20:44 Bisacodyl (Dulcolax Tab) 5 mg PRN DAILY PRN PO CONSTIPATION 1ST CHOICE 10/10/20 05:30 Buspirone HCl (Buspar) 5 mg BID PO 10/10/20 09:00 10/18/20 20:44 Calcium Polycarbophil (Fibercon) 1,250 mg DAILY PO 10/10/20 09:00 10/18/20 09:02 Citalopram Hydrobromide (CeleXA) 20 mg DAILY PO 10/10/20 09:00 10/18/20 09:02 Docusate Sodium (Colace) 100 mg PRN DAILY PRN PO HARD STOOLS 10/10/20 05:30 Meloxicam (Mobic) 15 mg HS PO 10/10/20 21:00 10/18/20 20:44 Memantine (Namenda) 5 mg DAILY PO 10/10/20 09:00 10/12/20 16:01 DC 10/12/20 08:05 Olanzapine (ZyPREXA ZYDIS) 2.5 mg PRN BID PRN PO ANXIETY / AGITATION 10/10/20 05:30 10/10/20 23:18 Polyethylene Glycol (miraLAX) 17 gm DAILYWSUP PO 10/10/20 17:00 10/18/20 16:58 Trazodone HCl (Desyrel) 50 mg PRN QHS PRN PO INSOMNIA 10/10/20 05:30 10/15/20 01:22 Doxylamine Succinate (Unisom) 25 mg QHS PO 10/10/20 21:00 10/16/20 17:38 DC 10/15/20 19:43 Multivitamins/ Calcium (Thera-M Plus) 1 tab QMWF@0900 PO 10/10/20 09:00 10/17/20 09:36 Pantoprazole Sodium (Protonix) 40 mg HS PO 10/10/20 21:00 10/18/20 20:44 Non-Formulary Medication ([Potassium Tablet] ) 99 mg DAILY PO 10/10/20 09:00 UNV Doxycycline Hyclate (Vibra-Tab) 100 mg BID PO 10/12/20 21:00 10/21/20 22:00 10/18/20 20:44 Memantine (Namenda) 10 mg DAILY PO 10/13/20 09:00 10/18/20 09:02 Lactobacillus Rhamnosus (Culturelle) 1 cap BID PO 10/16/20 09:00 10/18/20 20:44 Melatonin (Melatonin) 3 mg HS PO 10/16/20 21:00 10/18/20 20:44 Quetiapine Fumarate (SEROquel) 12.5 mg DAILY PO 10/19/20 09:00 I have reviewed the current psychotropics carefully including drug interactions. Risk benefit ratio favors no change other than as noted in my dictated progress note. 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
[2020-10-19 05:46] VITALS: BP 145/69
--- NOTE | 2020-10-19 06:39 | PDOC ---
Exam Note: Leonard Note: This note is a late entry for 10/18/2020 covers elements not covered in my initial note. Subjective: The patient was reviewed in the morning of 10/18/2020 for a treatment team meeting with Guillermina Ellis, Daniela Osorio and Jackelyn (clinical social worker), Riya, activity therapy and Anastasia LEAL, discussed and reviewed the chart. The patient slept 6-1/2 hours previous night. His Jade attended the treatment team meeting. We had a lengthy discussion of the patients diagnoses and discharge plans back to [facility]. I discussed with the at length how I had avoided using atypical antipsychotics and we reviewed further information from nursing facility via social service staff and given his significant mood lability causing disruptive behaviors and reactivity amongst the staff, I did discuss with the and we will initiate Seroquel 12.5 mg a.m. We discussed the risk-benefit ratio including potential side effects. Review of Systems: No CV, , pulmonary, eye system symptoms on review. Mental Status Exam: The patient is oriented to himself. Insight and judgment, recent and remote memory, attention and concentration, fund of knowledge is poor consistent with his diagnoses. Laboratory Data: Reviewed. Impression: Major neurocognitive disorder Alzheimer vascular with delusion, depression, behavioral disturbance. Impulse control disorder unspecified. Anxiety disorder unspecified. Plan: As mentioned above. We will consider transition back to intermediate sometime next week. Assessment: Vital Signs/I&O: Vital Signs Date Time Temp Pulse Resp B/P (MAP) Pulse Ox O2 Delivery O2 Flow Rate FiO2 10/19/20 05:46 97.8 81 16 145/69 (94) 97 10/15/20 06:11 Room Air I & O 10/18/20 10/18/20 10/19/20 14:59 22:59 06:59 Intake Total 320 ml 600 ml Balance 320 ml 600 ml Current Medications: Meds: Current Medications Medications (Trade) Dose Ordered Sig/Kiera Route PRN Reason Start Time Stop Time Status Last Admin Dose Admin Midazolam HCl (Versed) 5 mg 1X ONCE IM 10/09/20 23:00 10/09/20 23:07 DC 10/09/20 23:23 Lactated Ringer's 1,000 ml @ 1,000 mls/hr 1X ONCE IV 10/09/20 23:00 10/09/20 23:59 DC Levofloxacin (Levaquin) 750 mg 1X ONCE PO 10/10/20 01:00 10/10/20 01:01 DC 10/10/20 04:27 Acetaminophen (Tylenol) 650 mg PRN Q6HRS PRN PO MILD PAIN / TEMP > 100.3'F 10/10/20 05:00 Multi-Ingredient Ointment (Analgesic [place]) 1 gera PRN QID PRN TP MUSCLE PAIN 10/10/20 05:00 Al Hydroxide/Mg Hydroxide (Mylanta Plus Xs) 15 ml PRN AFTMEALHC PRN PO DYSPEPSIA 10/10/20 05:00 Magnesium Hydroxide (Milk Of Magnesia) 2,400 mg PRN QHS PRN PO CONSTIPATION 2ND CHOICE 10/10/20 05:00 Aspirin (Aspirin Enteric Coated) 81 mg DAILY08 PO 10/10/20 08:00 10/18/20 09:02 Atorvastatin Calcium (Lipitor) 10 mg QHS PO 10/10/20 21:00 10/18/20 20:44 Bisacodyl (Dulcolax Tab) 5 mg PRN DAILY PRN PO CONSTIPATION 1ST CHOICE 10/10/20 05:30 Buspirone HCl (Buspar) 5 mg BID PO 10/10/20 09:00 10/18/20 20:44 Calcium Polycarbophil (Fibercon) 1,250 mg DAILY PO 10/10/20 09:00 10/18/20 09:02 Citalopram Hydrobromide (CeleXA) 20 mg DAILY PO 10/10/20 09:00 10/18/20 09:02 Docusate Sodium (Colace) 100 mg PRN DAILY PRN PO HARD STOOLS 10/10/20 05:30 Meloxicam (Mobic) 15 mg HS PO 10/10/20 21:00 10/18/20 20:44 Memantine (Namenda) 5 mg DAILY PO 10/10/20 09:00 10/12/20 16:01 DC 10/12/20 08:05 Olanzapine (ZyPREXA ZYDIS) 2.5 mg PRN BID PRN PO ANXIETY / AGITATION 10/10/20 05:30 10/10/20 23:18 Polyethylene Glycol (miraLAX) 17 gm DAILYWSUP PO 10/10/20 17:00 10/18/20 16:58 Trazodone HCl (Desyrel) 50 mg PRN QHS PRN PO INSOMNIA 10/10/20 05:30 10/15/20 01:22 Doxylamine Succinate (Unisom) 25 mg QHS PO 10/10/20 21:00 10/16/20 17:38 DC 10/15/20 19:43 Multivitamins/ Calcium (Thera-M Plus) 1 tab QMWF@0900 PO 10/10/20 09:00 10/17/20 09:36 Pantoprazole Sodium (Protonix) 40 mg HS PO 10/10/20 21:00 10/18/20 20:44 Non-Formulary Medication ([Potassium Tablet] ) 99 mg DAILY PO 10/10/20 09:00 UNV Doxycycline Hyclate (Vibra-Tab) 100 mg BID PO 10/12/20 21:00 10/21/20 22:00 10/18/20 20:44 Memantine (Namenda) 10 mg DAILY PO 10/13/20 09:00 10/18/20 09:02 Lactobacillus Rhamnosus (Culturelle) 1 cap BID PO 10/16/20 09:00 10/18/20 20:44 Melatonin (Melatonin) 3 mg HS PO 10/16/20 21:00 10/18/20 20:44 Quetiapine Fumarate (SEROquel) 12.5 mg DAILY PO 10/19/20 09:00 I have reviewed the current psychotropics carefully including drug interactions. Risk benefit ratio favors no change other than as noted in my dictated progress note. 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
[2020-10-19] MEDS: busPIRone 5 MG TABLET. PO SCH ×2 (07:57→21:31)
[2020-10-19] MEDS: MEMANTINE 10 MG TABLET. PO SCH (07:57)
[2020-10-19] MEDS: ASPIRIN ENTERIC COATED 81 MG TABLET.DR. PO SCH (07:57)
[2020-10-19] MEDS: DOXYCYCLINE HYCLATE 100 MG TABLET PO SCH ×2 (07:57→21:30)
[2020-10-19] MEDS: QUEtiapine 25 MG TABLET. PO SCH (07:58)
[2020-10-19] MEDS: CALCIUM POLYCARBOPHIL 625 MG TABLET PO SCH (07:58)
[2020-10-19] MEDS: LACTOBACILLUS RHAMNOSUS GG 1 CAPSULE. PO SCH ×2 (07:58→21:30)
[2020-10-19] MEDS: CITALOPRAM 20 MG TABLET. PO SCH (07:58)
[2020-10-19] MEDS: MULTIVITAMIN with MINERAL TABLET. PO SCH (07:58)
[2020-10-19 16:13] VITALS: BP 128/76
[2020-10-19] MEDS: POLYETHYLENE GLYCOL 3350 17 GM PACKET. PO SCH (17:15)
[2020-10-19] MEDS: PANTOPRAZOLE 40 MG TABLET. PO SCH (21:30)
[2020-10-19] MEDS: ATORVASTATIN CALCIUM 10 MG TABLET. PO SCH (21:30)
[2020-10-19] MEDS: MELOXICAM 15 MG TABLET. PO SCH (21:30)
[2020-10-19] MEDS: MELATONIN 3 MG TABLET PO SCH (21:31)
--- NOTE | 2020-10-19 22:05 | PDOC ---
Exam Note: Leonard Note: Please also refer to the separate dictated note~for this date of service dictated separately.~Patient seen individually. Discussed the patient with Nursing staff reviewed the chart.~Reviewed interim history and current functioning. Reviewed vital signs,~Labs/ Radiology~and current medications noted below. Continue current treatment with the changes noted in the dictated addendum note Assessment: Vital Signs/I&O: Vital Signs Date Time Temp Pulse Resp B/P (MAP) Pulse Ox O2 Delivery O2 Flow Rate FiO2 10/19/20 16:13 98.0 62 17 128/76 (93) 98 Room Air I & O 10/18/20 10/18/20 10/19/20 15:00 23:00 07:00 Intake Total 320 ml 600 ml Balance 320 ml 600 ml Current Medications: Meds: Current Medications Medications (Trade) Dose Ordered Sig/Kiera Route PRN Reason Start Time Stop Time Status Last Admin Dose Admin Midazolam HCl (Versed) 5 mg 1X ONCE IM 10/09/20 23:00 10/09/20 23:07 DC 10/09/20 23:23 Lactated Ringer's 1,000 ml @ 1,000 mls/hr 1X ONCE IV 10/09/20 23:00 10/09/20 23:59 DC Levofloxacin (Levaquin) 750 mg 1X ONCE PO 10/10/20 01:00 10/10/20 01:01 DC 10/10/20 04:27 Acetaminophen (Tylenol) 650 mg PRN Q6HRS PRN PO MILD PAIN / TEMP > 100.3'F 10/10/20 05:00 Multi-Ingredient Ointment (Analgesic [place]) 1 gera PRN QID PRN TP MUSCLE PAIN 10/10/20 05:00 Al Hydroxide/Mg Hydroxide (Mylanta Plus Xs) 15 ml PRN AFTMEALHC PRN PO DYSPEPSIA 10/10/20 05:00 Magnesium Hydroxide (Milk Of Magnesia) 2,400 mg PRN QHS PRN PO CONSTIPATION 2ND CHOICE 10/10/20 05:00 Aspirin (Aspirin Enteric Coated) 81 mg DAILY08 PO 10/10/20 08:00 10/19/20 07:57 Atorvastatin Calcium (Lipitor) 10 mg QHS PO 10/10/20 21:00 10/19/20 21:30 Bisacodyl (Dulcolax Tab) 5 mg PRN DAILY PRN PO CONSTIPATION 1ST CHOICE 10/10/20 05:30 Buspirone HCl (Buspar) 5 mg BID PO 10/10/20 09:00 10/19/20 21:31 Calcium Polycarbophil (Fibercon) 1,250 mg DAILY PO 10/10/20 09:00 10/19/20 07:58 Citalopram Hydrobromide (CeleXA) 20 mg DAILY PO 10/10/20 09:00 10/19/20 07:58 Docusate Sodium (Colace) 100 mg PRN DAILY PRN PO HARD STOOLS 10/10/20 05:30 Meloxicam (Mobic) 15 mg HS PO 10/10/20 21:00 10/19/20 21:30 Memantine (Namenda) 5 mg DAILY PO 10/10/20 09:00 10/12/20 16:01 DC 10/12/20 08:05 Olanzapine (ZyPREXA ZYDIS) 2.5 mg PRN BID PRN PO ANXIETY / AGITATION 10/10/20 05:30 10/19/20 21:30 Polyethylene Glycol (miraLAX) 17 gm DAILYWSUP PO 10/10/20 17:00 10/19/20 17:15 Trazodone HCl (Desyrel) 50 mg PRN QHS PRN PO INSOMNIA 10/10/20 05:30 10/15/20 01:22 Doxylamine Succinate (Unisom) 25 mg QHS PO 10/10/20 21:00 10/16/20 17:38 DC 10/15/20 19:43 Multivitamins/ Calcium (Thera-M Plus) 1 tab QMWF@0900 PO 10/10/20 09:00 10/19/20 07:58 Pantoprazole Sodium (Protonix) 40 mg HS PO 10/10/20 21:00 10/19/20 21:30 Non-Formulary Medication ([Potassium Tablet] ) 99 mg DAILY PO 10/10/20 09:00 UNV Doxycycline Hyclate (Vibra-Tab) 100 mg BID PO 10/12/20 21:00 10/21/20 22:00 10/19/20 21:30 Memantine (Namenda) 10 mg DAILY PO 10/13/20 09:00 10/19/20 07:57 Lactobacillus Rhamnosus (Culturelle) 1 cap BID PO 10/16/20 09:00 10/19/20 21:30 Melatonin (Melatonin) 3 mg HS PO 10/16/20 21:00 10/19/20 21:31 Quetiapine Fumarate (SEROquel) 12.5 mg DAILY PO 10/19/20 09:00 10/19/20 07:58 Current Medications Medications (Trade) Dose Ordered Sig/Kiera Route PRN Reason Start Time Stop Time Status Last Admin Dose Admin Quetiapine Fumarate (SEROquel) 12.5 mg DAILY PO 10/19/20 09:00 10/19/20 07:58 I have reviewed the current psychotropics carefully including drug interactions. Risk benefit ratio favors no change other than as noted in my dictated progress note. 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
[2020-10-20 06:30] VITALS: BP 173/86
--- NOTE | 2020-10-20 07:28 | PDOC ---
Exam Note: Leonard Note: This note is a late entry for 10/19/2020 covers elements not covered in my initial note. Subjective: The patient was seen individually in the evening of 10/19/2020 with Anastasia LEAL, discussed and reviewed the chart. The patient slept 5-3/4 hours previous night. He remains confused, somewhat wandering, refusing his shower. Review of Systems: No CV, , pulmonary, eye system symptoms on review. Reliability poor. He is oblivious to his surroundings. Mental Status Exam: The patient is oriented to himself. Insight and judgment, recent and remote memory, attention and concentration, fund of knowledge is poor consistent with his diagnoses. Laboratory Data: Reviewed. Impression: Major neurocognitive disorder Alzheimer vascular with delusion, depression, behavioral disturbance. Impulse control disorder unspecified. Anxiety disorder unspecified. Plan: We will maintain Namenda, Seroquel, trazodone, Zyprexa, BuSpar, Celexa and melatonin. Make further adjustments as clinically indicated. Assessment: Vital Signs/I&O: Vital Signs Date Time Temp Pulse Resp B/P (MAP) Pulse Ox O2 Delivery O2 Flow Rate FiO2 10/20/20 06:30 97.5 89 16 173/86 (115) 97 Room Air I & O 10/19/20 10/19/20 10/20/20 14:59 22:59 06:59 Intake Total 480 ml 360 ml Balance 480 ml 360 ml Current Medications: Meds: Current Medications Medications (Trade) Dose Ordered Sig/Kiera Route PRN Reason Start Time Stop Time Status Last Admin Dose Admin Midazolam HCl (Versed) 5 mg 1X ONCE IM 10/09/20 23:00 10/09/20 23:07 DC 10/09/20 23:23 Lactated Ringer's 1,000 ml @ 1,000 mls/hr 1X ONCE IV 10/09/20 23:00 10/09/20 23:59 DC Levofloxacin (Levaquin) 750 mg 1X ONCE PO 10/10/20 01:00 10/10/20 01:01 DC 10/10/20 04:27 Acetaminophen (Tylenol) 650 mg PRN Q6HRS PRN PO MILD PAIN / TEMP > 100.3'F 10/10/20 05:00 Multi-Ingredient Ointment (Analgesic [place]) 1 gera PRN QID PRN TP MUSCLE PAIN 10/10/20 05:00 Al Hydroxide/Mg Hydroxide (Mylanta Plus Xs) 15 ml PRN AFTMEALHC PRN PO DYSPEPSIA 10/10/20 05:00 Magnesium Hydroxide (Milk Of Magnesia) 2,400 mg PRN QHS PRN PO CONSTIPATION 2ND CHOICE 10/10/20 05:00 Aspirin (Aspirin Enteric Coated) 81 mg DAILY08 PO 10/10/20 08:00 10/19/20 07:57 Atorvastatin Calcium (Lipitor) 10 mg QHS PO 10/10/20 21:00 10/19/20 21:30 Bisacodyl (Dulcolax Tab) 5 mg PRN DAILY PRN PO CONSTIPATION 1ST CHOICE 10/10/20 05:30 Buspirone HCl (Buspar) 5 mg BID PO 10/10/20 09:00 10/19/20 21:31 Calcium Polycarbophil (Fibercon) 1,250 mg DAILY PO 10/10/20 09:00 10/19/20 07:58 Citalopram Hydrobromide (CeleXA) 20 mg DAILY PO 10/10/20 09:00 10/19/20 07:58 Docusate Sodium (Colace) 100 mg PRN DAILY PRN PO HARD STOOLS 10/10/20 05:30 Meloxicam (Mobic) 15 mg HS PO 10/10/20 21:00 10/19/20 21:30 Memantine (Namenda) 5 mg DAILY PO 10/10/20 09:00 10/12/20 16:01 DC 10/12/20 08:05 Olanzapine (ZyPREXA ZYDIS) 2.5 mg PRN BID PRN PO ANXIETY / AGITATION 10/10/20 05:30 10/19/20 21:30 Polyethylene Glycol (miraLAX) 17 gm DAILYWSUP PO 10/10/20 17:00 10/19/20 17:15 Trazodone HCl (Desyrel) 50 mg PRN QHS PRN PO INSOMNIA 10/10/20 05:30 10/15/20 01:22 Doxylamine Succinate (Unisom) 25 mg QHS PO 10/10/20 21:00 10/16/20 17:38 DC 10/15/20 19:43 Multivitamins/ Calcium (Thera-M Plus) 1 tab QMWF@0900 PO 10/10/20 09:00 10/19/20 07:58 Pantoprazole Sodium (Protonix) 40 mg HS PO 10/10/20 21:00 10/19/20 21:30 Non-Formulary Medication ([Potassium Tablet] ) 99 mg DAILY PO 10/10/20 09:00 UNV Doxycycline Hyclate (Vibra-Tab) 100 mg BID PO 10/12/20 21:00 10/21/20 22:00 10/19/20 21:30 Memantine (Namenda) 10 mg DAILY PO 10/13/20 09:00 10/19/20 07:57 Lactobacillus Rhamnosus (Culturelle) 1 cap BID PO 10/16/20 09:00 10/19/20 21:30 Melatonin (Melatonin) 3 mg HS PO 10/16/20 21:00 10/19/20 21:31 Quetiapine Fumarate (SEROquel) 12.5 mg DAILY PO 10/19/20 09:00 10/19/20 07:58 Current Medications Medications (Trade) Dose Ordered Sig/Kiera Route PRN Reason Start Time Stop Time Status Last Admin Dose Admin Quetiapine Fumarate (SEROquel) 12.5 mg DAILY PO 10/19/20 09:00 10/19/20 07:58 I have reviewed the current psychotropics carefully including drug interactions. Risk benefit ratio favors no change other than as noted in my dictated progress note. 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
[2020-10-20] MEDS: busPIRone 5 MG TABLET. PO SCH ×2 (08:17→20:13)
[2020-10-20] MEDS: ASPIRIN ENTERIC COATED 81 MG TABLET.DR. PO SCH (08:17)
[2020-10-20] MEDS: DOXYCYCLINE HYCLATE 100 MG TABLET PO SCH ×2 (08:17→20:13)
[2020-10-20] MEDS: LACTOBACILLUS RHAMNOSUS GG 1 CAPSULE. PO SCH ×2 (08:17→20:13)
[2020-10-20] MEDS: CALCIUM POLYCARBOPHIL 625 MG TABLET PO SCH (08:17)
[2020-10-20] MEDS: CITALOPRAM 20 MG TABLET. PO SCH (08:18)
[2020-10-20] MEDS: MEMANTINE 10 MG TABLET. PO SCH (08:18)
[2020-10-20] MEDS: QUEtiapine 25 MG TABLET. PO SCH (08:18)
[2020-10-20 16:13] VITALS: BP 102/65
[2020-10-20] MEDS: POLYETHYLENE GLYCOL 3350 17 GM PACKET. PO SCH (16:37)
[2020-10-20] MEDS: MELATONIN 3 MG TABLET PO SCH (20:13)
[2020-10-20] MEDS: MELOXICAM 15 MG TABLET. PO SCH (20:13)
[2020-10-20] MEDS: ATORVASTATIN CALCIUM 10 MG TABLET. PO SCH (20:13)
[2020-10-20] MEDS: PANTOPRAZOLE 40 MG TABLET. PO SCH (20:13)
--- NOTE | 2020-10-20 21:55 | PDOC ---
Exam Note: Leonard Note: Please also refer to the separate dictated note~for this date of service dictated separately.~Patient seen individually. Discussed the patient with Nursing staff reviewed the chart.~Reviewed interim history and current functioning. Reviewed vital signs,~Labs/ Radiology~and current medications noted below. Continue current treatment with the changes noted in the dictated addendum note Assessment: Vital Signs/I&O: Vital Signs Date Time Temp Pulse Resp B/P (MAP) Pulse Ox O2 Delivery O2 Flow Rate FiO2 10/20/20 16:13 97.4 60 16 102/65 (77) 98 Room Air I & O 10/19/20 10/19/20 10/20/20 14:59 22:59 06:59 Intake Total 480 ml 360 ml Balance 480 ml 360 ml Current Medications: Meds: Current Medications Medications (Trade) Dose Ordered Sig/Kiera Route PRN Reason Start Time Stop Time Status Last Admin Dose Admin Midazolam HCl (Versed) 5 mg 1X ONCE IM 10/09/20 23:00 10/09/20 23:07 DC 10/09/20 23:23 Lactated Ringer's 1,000 ml @ 1,000 mls/hr 1X ONCE IV 10/09/20 23:00 10/09/20 23:59 DC Levofloxacin (Levaquin) 750 mg 1X ONCE PO 10/10/20 01:00 10/10/20 01:01 DC 10/10/20 04:27 Acetaminophen (Tylenol) 650 mg PRN Q6HRS PRN PO MILD PAIN / TEMP > 100.3'F 10/10/20 05:00 Multi-Ingredient Ointment (Analgesic [place]) 1 gera PRN QID PRN TP MUSCLE PAIN 10/10/20 05:00 Al Hydroxide/Mg Hydroxide (Mylanta Plus Xs) 15 ml PRN AFTMEALHC PRN PO DYSPEPSIA 10/10/20 05:00 Magnesium Hydroxide (Milk Of Magnesia) 2,400 mg PRN QHS PRN PO CONSTIPATION 2ND CHOICE 10/10/20 05:00 Aspirin (Aspirin Enteric Coated) 81 mg DAILY08 PO 10/10/20 08:00 10/20/20 08:17 Atorvastatin Calcium (Lipitor) 10 mg QHS PO 10/10/20 21:00 10/20/20 20:13 Bisacodyl (Dulcolax Tab) 5 mg PRN DAILY PRN PO CONSTIPATION 1ST CHOICE 10/10/20 05:30 Buspirone HCl (Buspar) 5 mg BID PO 10/10/20 09:00 10/20/20 20:13 Calcium Polycarbophil (Fibercon) 1,250 mg DAILY PO 10/10/20 09:00 10/20/20 08:17 Citalopram Hydrobromide (CeleXA) 20 mg DAILY PO 10/10/20 09:00 10/20/20 08:18 Docusate Sodium (Colace) 100 mg PRN DAILY PRN PO HARD STOOLS 10/10/20 05:30 Meloxicam (Mobic) 15 mg HS PO 10/10/20 21:00 10/20/20 20:13 Memantine (Namenda) 5 mg DAILY PO 10/10/20 09:00 10/12/20 16:01 DC 10/12/20 08:05 Olanzapine (ZyPREXA ZYDIS) 2.5 mg PRN BID PRN PO ANXIETY / AGITATION 10/10/20 05:30 10/19/20 21:30 Polyethylene Glycol (miraLAX) 17 gm DAILYWSUP PO 10/10/20 17:00 10/20/20 16:37 Trazodone HCl (Desyrel) 50 mg PRN QHS PRN PO INSOMNIA 10/10/20 05:30 10/15/20 01:22 Doxylamine Succinate (Unisom) 25 mg QHS PO 10/10/20 21:00 10/16/20 17:38 DC 10/15/20 19:43 Multivitamins/ Calcium (Thera-M Plus) 1 tab QMWF@0900 PO 10/10/20 09:00 10/19/20 07:58 Pantoprazole Sodium (Protonix) 40 mg HS PO 10/10/20 21:00 10/20/20 20:13 Non-Formulary Medication ([Potassium Tablet] ) 99 mg DAILY PO 10/10/20 09:00 UNV Doxycycline Hyclate (Vibra-Tab) 100 mg BID PO 10/12/20 21:00 10/21/20 22:00 10/20/20 20:13 Memantine (Namenda) 10 mg DAILY PO 10/13/20 09:00 10/20/20 08:18 Lactobacillus Rhamnosus (Culturelle) 1 cap BID PO 10/16/20 09:00 10/20/20 20:13 Melatonin (Melatonin) 3 mg HS PO 10/16/20 21:00 10/20/20 20:13 Quetiapine Fumarate (SEROquel) 12.5 mg DAILY PO 10/19/20 09:00 10/20/20 08:18 I have reviewed the current psychotropics carefully including drug interactions. Risk benefit ratio favors no change other than as noted in my dictated progress note. 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
[2020-10-21 06:45] VITALS: BP 115/71
--- NOTE | 2020-10-21 07:35 | PDOC ---
Exam Note: Leonard Note: This note is a late entry for 10/20/2020 covers elements not covered in my initial note. Subjective: The patient was seen individually in the evening of 10/20/2020 with Ryan LEAL, discussed and reviewed the chart. The patient slept 6-1/4 hours previous night. He was quite anxious previous night, especially when taken to the showers, refused to go to the showers but he has been cooperative today. Review of Systems: No CV, , pulmonary, eye system symptoms on review. Reliability poor. He is oblivious to his surroundings. Mental Status Exam: The patient is oriented to himself. Insight and judgment, recent and remote memory, attention and concentration, fund of knowledge is poor consistent with his diagnoses. Laboratory Data: Reviewed. Impression: Major neurocognitive disorder Alzheimer vascular with delusion, depression, behavioral disturbance. Impulse control disorder unspecified. Anxiety disorder unspecified. Plan: Maintain rest of the psychotropics unchanged. Assessment: Vital Signs/I&O: Vital Signs Date Time Temp Pulse Resp B/P (MAP) Pulse Ox O2 Delivery O2 Flow Rate FiO2 10/21/20 06:45 97.9 68 17 115/71 (86) 97 10/20/20 16:13 Room Air I & O 10/20/20 10/20/20 10/21/20 15:00 23:00 07:00 Intake Total 240 ml 240 ml Balance 240 ml 240 ml Current Medications: Meds: Current Medications Medications (Trade) Dose Ordered Sig/Kiera Route PRN Reason Start Time Stop Time Status Last Admin Dose Admin Midazolam HCl (Versed) 5 mg 1X ONCE IM 10/09/20 23:00 10/09/20 23:07 DC 10/09/20 23:23 Lactated Ringer's 1,000 ml @ 1,000 mls/hr 1X ONCE IV 10/09/20 23:00 10/09/20 23:59 DC Levofloxacin (Levaquin) 750 mg 1X ONCE PO 10/10/20 01:00 10/10/20 01:01 DC 10/10/20 04:27 Acetaminophen (Tylenol) 650 mg PRN Q6HRS PRN PO MILD PAIN / TEMP > 100.3'F 10/10/20 05:00 Multi-Ingredient Ointment (Analgesic [place]) 1 gera PRN QID PRN TP MUSCLE PAIN 10/10/20 05:00 Al Hydroxide/Mg Hydroxide (Mylanta Plus Xs) 15 ml PRN AFTMEALHC PRN PO DYSPEPSIA 10/10/20 05:00 Magnesium Hydroxide (Milk Of Magnesia) 2,400 mg PRN QHS PRN PO CONSTIPATION 2ND CHOICE 10/10/20 05:00 Aspirin (Aspirin Enteric Coated) 81 mg DAILY08 PO 10/10/20 08:00 10/20/20 08:17 Atorvastatin Calcium (Lipitor) 10 mg QHS PO 10/10/20 21:00 10/20/20 20:13 Bisacodyl (Dulcolax Tab) 5 mg PRN DAILY PRN PO CONSTIPATION 1ST CHOICE 10/10/20 05:30 Buspirone HCl (Buspar) 5 mg BID PO 10/10/20 09:00 10/20/20 20:13 Calcium Polycarbophil (Fibercon) 1,250 mg DAILY PO 10/10/20 09:00 10/20/20 08:17 Citalopram Hydrobromide (CeleXA) 20 mg DAILY PO 10/10/20 09:00 10/20/20 08:18 Docusate Sodium (Colace) 100 mg PRN DAILY PRN PO HARD STOOLS 10/10/20 05:30 Meloxicam (Mobic) 15 mg HS PO 10/10/20 21:00 10/20/20 20:13 Memantine (Namenda) 5 mg DAILY PO 10/10/20 09:00 10/12/20 16:01 DC 10/12/20 08:05 Olanzapine (ZyPREXA ZYDIS) 2.5 mg PRN BID PRN PO ANXIETY / AGITATION 10/10/20 05:30 10/19/20 21:30 Polyethylene Glycol (miraLAX) 17 gm DAILYWSUP PO 10/10/20 17:00 10/20/20 16:37 Trazodone HCl (Desyrel) 50 mg PRN QHS PRN PO INSOMNIA 10/10/20 05:30 10/15/20 01:22 Doxylamine Succinate (Unisom) 25 mg QHS PO 10/10/20 21:00 10/16/20 17:38 DC 10/15/20 19:43 Multivitamins/ Calcium (Thera-M Plus) 1 tab QMWF@0900 PO 10/10/20 09:00 10/19/20 07:58 Pantoprazole Sodium (Protonix) 40 mg HS PO 10/10/20 21:00 10/20/20 20:13 Non-Formulary Medication ([Potassium Tablet] ) 99 mg DAILY PO 10/10/20 09:00 UNV Doxycycline Hyclate (Vibra-Tab) 100 mg BID PO 10/12/20 21:00 10/21/20 22:00 10/20/20 20:13 Memantine (Namenda) 10 mg DAILY PO 10/13/20 09:00 10/20/20 08:18 Lactobacillus Rhamnosus (Culturelle) 1 cap BID PO 10/16/20 09:00 10/20/20 20:13 Melatonin (Melatonin) 3 mg HS PO 10/16/20 21:00 10/20/20 20:13 Quetiapine Fumarate (SEROquel) 12.5 mg DAILY PO 10/19/20 09:00 10/20/20 08:18 I have reviewed the current psychotropics carefully including drug interactions. Risk benefit ratio favors no change other than as noted in my dictated progress note. 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
[2020-10-21] MEDS: MEMANTINE 10 MG TABLET. PO SCH (08:35)
[2020-10-21] MEDS: CALCIUM POLYCARBOPHIL 625 MG TABLET PO SCH (08:35)
[2020-10-21] MEDS: busPIRone 5 MG TABLET. PO SCH ×2 (08:35→20:14)
[2020-10-21] MEDS: CITALOPRAM 20 MG TABLET. PO SCH (08:35)
[2020-10-21] MEDS: LACTOBACILLUS RHAMNOSUS GG 1 CAPSULE. PO SCH ×2 (08:35→20:13)
[2020-10-21] MEDS: DOXYCYCLINE HYCLATE 100 MG TABLET PO SCH ×2 (08:35→20:13)
[2020-10-21] MEDS: ASPIRIN ENTERIC COATED 81 MG TABLET.DR. PO SCH (08:35)
[2020-10-21] MEDS: QUEtiapine 25 MG TABLET. PO SCH (08:35)
[2020-10-21 16:07] VITALS: BP 99/60
[2020-10-21] MEDS: POLYETHYLENE GLYCOL 3350 17 GM PACKET. PO SCH (17:41)
[2020-10-21] MEDS: ATORVASTATIN CALCIUM 10 MG TABLET. PO SCH (20:14)
[2020-10-21] MEDS: MELOXICAM 15 MG TABLET. PO SCH (20:14)
[2020-10-21] MEDS: MELATONIN 3 MG TABLET PO SCH (20:14)
[2020-10-21] MEDS: PANTOPRAZOLE 40 MG TABLET. PO SCH (20:14)
--- NOTE | 2020-10-21 22:02 | PDOC ---
Exam Note: Leonard Note: Please also refer to the separate dictated note~for this date of service dictated separately.~Patient seen individually. Discussed the patient with Nursing staff reviewed the chart.~Reviewed interim history and current functioning. Reviewed vital signs,~Labs/ Radiology~and current medications noted below. Continue current treatment with the changes noted in the dictated addendum note Assessment: Vital Signs/I&O: Vital Signs Date Time Temp Pulse Resp B/P (MAP) Pulse Ox O2 Delivery O2 Flow Rate FiO2 10/21/20 16:07 97.6 72 20 99/60 (73) 97 10/20/20 16:13 Room Air I & O 10/20/20 10/20/20 10/21/20 15:00 23:00 07:00 Intake Total 240 ml 240 ml Balance 240 ml 240 ml Current Medications: Meds: Current Medications Medications (Trade) Dose Ordered Sig/Kiera Route PRN Reason Start Time Stop Time Status Last Admin Dose Admin Midazolam HCl (Versed) 5 mg 1X ONCE IM 10/09/20 23:00 10/09/20 23:07 DC 10/09/20 23:23 Lactated Ringer's 1,000 ml @ 1,000 mls/hr 1X ONCE IV 10/09/20 23:00 10/09/20 23:59 DC Levofloxacin (Levaquin) 750 mg 1X ONCE PO 10/10/20 01:00 10/10/20 01:01 DC 10/10/20 04:27 Acetaminophen (Tylenol) 650 mg PRN Q6HRS PRN PO MILD PAIN / TEMP > 100.3'F 10/10/20 05:00 Multi-Ingredient Ointment (Analgesic [place]) 1 gera PRN QID PRN TP MUSCLE PAIN 10/10/20 05:00 Al Hydroxide/Mg Hydroxide (Mylanta Plus Xs) 15 ml PRN AFTMEALHC PRN PO DYSPEPSIA 10/10/20 05:00 Magnesium Hydroxide (Milk Of Magnesia) 2,400 mg PRN QHS PRN PO CONSTIPATION 2ND CHOICE 10/10/20 05:00 Aspirin (Aspirin Enteric Coated) 81 mg DAILY08 PO 10/10/20 08:00 10/21/20 08:35 Atorvastatin Calcium (Lipitor) 10 mg QHS PO 10/10/20 21:00 10/21/20 20:14 Bisacodyl (Dulcolax Tab) 5 mg PRN DAILY PRN PO CONSTIPATION 1ST CHOICE 10/10/20 05:30 Buspirone HCl (Buspar) 5 mg BID PO 10/10/20 09:00 10/21/20 20:14 Calcium Polycarbophil (Fibercon) 1,250 mg DAILY PO 10/10/20 09:00 10/21/20 08:35 Citalopram Hydrobromide (CeleXA) 20 mg DAILY PO 10/10/20 09:00 10/21/20 08:35 Docusate Sodium (Colace) 100 mg PRN DAILY PRN PO HARD STOOLS 10/10/20 05:30 Meloxicam (Mobic) 15 mg HS PO 10/10/20 21:00 10/21/20 20:14 Memantine (Namenda) 5 mg DAILY PO 10/10/20 09:00 10/12/20 16:01 DC 10/12/20 08:05 Olanzapine (ZyPREXA ZYDIS) 2.5 mg PRN BID PRN PO ANXIETY / AGITATION 10/10/20 05:30 10/19/20 21:30 Polyethylene Glycol (miraLAX) 17 gm DAILYWSUP PO 10/10/20 17:00 10/21/20 17:41 Trazodone HCl (Desyrel) 50 mg PRN QHS PRN PO INSOMNIA 10/10/20 05:30 10/15/20 01:22 Doxylamine Succinate (Unisom) 25 mg QHS PO 10/10/20 21:00 10/16/20 17:38 DC 10/15/20 19:43 Multivitamins/ Calcium (Thera-M Plus) 1 tab QMWF@0900 PO 10/10/20 09:00 10/19/20 07:58 Pantoprazole Sodium (Protonix) 40 mg HS PO 10/10/20 21:00 10/21/20 20:14 Non-Formulary Medication ([Potassium Tablet] ) 99 mg DAILY PO 10/10/20 09:00 UNV Doxycycline Hyclate (Vibra-Tab) 100 mg BID PO 10/12/20 21:00 10/21/20 22:00 DC 10/21/20 20:13 Memantine (Namenda) 10 mg DAILY PO 10/13/20 09:00 10/21/20 08:35 Lactobacillus Rhamnosus (Culturelle) 1 cap BID PO 10/16/20 09:00 10/21/20 20:13 Melatonin (Melatonin) 3 mg HS PO 10/16/20 21:00 10/21/20 20:14 Quetiapine Fumarate (SEROquel) 12.5 mg DAILY PO 10/19/20 09:00 10/21/20 08:35 I have reviewed the current psychotropics carefully including drug interactions. Risk benefit ratio favors no change other than as noted in my dictated progress note. 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
[2020-10-22 06:10] LABS: BASO % 1 % (0-3); EOS # 0.2 x10^3/uL (0.0-0.7); EOS % 4 % (0-3); HEMATOCRIT 37.2 % (39.0-53.0); HEMOGLOBIN 12.5 g/dL (13.0-17.5); LYMPH # 0.9 x10^3/uL (1.0-4.8); LYMPH % 22 % (24-48); MEAN CORPUSCULAR HEMOGLOBIN 32 pg (25-35); MEAN CORPUSCULAR HGB CONC 34 g/dL (31-37); MEAN CORPUSCULAR VOLUME 94 fL (79-100); MONO # 0.5 x10^3/uL (0.0-1.1); MONO % 14 % (0-9); NEUT # 2.3 x10^3uL (1.8-7.7); NEUT % 59 % (31-73); PLATELET COUNT 139 x10^3/uL (140-400); RED BLOOD COUNT 3.95 x10^6/uL (4.30-5.70); RED CELL DISTRIBUTION WIDTH 13.7 % (11.5-14.5); WHITE BLOOD COUNT 3.9 x10^3/uL (4.0-11.0)
[2020-10-22 06:22] LABS: ALBUMIN 3.3 g/dL (3.4-5.0); ALBUMIN/GLOBULIN RATIO 1.3 (1.0-1.7); CALCIUM 8.9 mg/dL (8.5-10.1); CREATININE 0.8 mg/dL (0.7-1.3); GFR 92.8; POTASSIUM 4.3 mmol/L (3.5-5.1); TOTAL BILIRUBIN 0.5 mg/dL (0.2-1.0); TOTAL PROTEIN 5.9 g/dL (6.4-8.2)
[2020-10-22 06:26] VITALS: BP 126/73
--- NOTE | 2020-10-22 06:31 | PDOC ---
Exam Note: Leonard Note: This note is a late entry for 10/21/2020 covers elements not covered in my initial note. Subjective: The patient was seen individually in the evening of 10/21/2020 with Anastasia LEAL, discussed and reviewed the chart. The patient slept 7 hours previous night. He has been confused but otherwise calm. Review of Systems: No CV, , pulmonary, eye system symptoms on review. He was lying in bed in his room, which is where I met with him. Later I saw him in the hallway. Reliability poor. Mental Status Exam: The patient is oriented to himself. Insight and judgment, recent and remote memory, attention and concentration, fund of knowledge is poor consistent with his diagnoses. Laboratory Data: Reviewed. Impression: Major neurocognitive disorder Alzheimer vascular with delusion, depression, behavioral disturbance. Impulse control disorder unspecified. Anxiety disorder unspecified. Plan: Maintain rest of the psychotropics unchanged. Assessment: Vital Signs/I&O: Vital Signs Date Time Temp Pulse Resp B/P (MAP) Pulse Ox O2 Delivery O2 Flow Rate FiO2 10/22/20 06:26 97.8 68 15 126/73 (90) 96 10/20/20 16:13 Room Air I & O 10/21/20 10/21/20 10/22/20 15:00 23:00 07:00 Intake Total 240 ml 600 ml Balance 240 ml 600 ml Labs: Laboratory Tests Test 10/22/20 05:52 White Blood Count 3.9 x10^3/uL (4.0-11.0) L Red Blood Count 3.95 x10^6/uL (4.30-5.70) L Hemoglobin 12.5 g/dL (13.0-17.5) L Hematocrit 37.2 % (39.0-53.0) L Mean Corpuscular Volume 94 fL (79-100) Mean Corpuscular Hemoglobin 32 pg (25-35) Mean Corpuscular Hemoglobin Concent 34 g/dL (31-37) Red Cell Distribution Width 13.7 % (11.5-14.5) Platelet Count 139 x10^3/uL (140-400) L Neutrophils (%) (Auto) 59 % (31-73) Lymphocytes (%) (Auto) 22 % (24-48) L Monocytes (%) (Auto) 14 % (0-9) H Eosinophils (%) (Auto) 4 % (0-3) H Basophils (%) (Auto) 1 % (0-3) Neutrophils # (Auto) 2.3 x10^3uL (1.8-7.7) Lymphocytes # (Auto) 0.9 x10^3/uL (1.0-4.8) L Monocytes # (Auto) 0.5 x10^3/uL (0.0-1.1) Eosinophils # (Auto) 0.2 x10^3/uL (0.0-0.7) Basophils # (Auto) 0.0 x10^3/uL (0.0-0.2) Sodium Level 145 mmol/L (136-145) Potassium Level 4.3 mmol/L (3.5-5.1) Chloride Level 110 mmol/L (98-107) H Carbon Dioxide Level 31 mmol/L (21-32) Anion Gap 4 (6-14) L Blood Urea Nitrogen 33 mg/dL (8-26) H Creatinine 0.8 mg/dL (0.7-1.3) Estimated GFR (Cockcroft-Gault) 92.8 BUN/Creatinine Ratio 41 (6-20) H Glucose Level 99 mg/dL (70-99) Calcium Level 8.9 mg/dL (8.5-10.1) Total Bilirubin 0.5 mg/dL (0.2-1.0) Aspartate Amino Transferase (AST) 12 U/L (15-37) L Alanine Aminotransferase (ALT) 19 U/L (16-63) Alkaline Phosphatase 77 U/L (46-116) Total Protein 5.9 g/dL (6.4-8.2) L Albumin 3.3 g/dL (3.4-5.0) L Albumin/Globulin Ratio 1.3 (1.0-1.7) Current Medications: Meds: Laboratory Tests Test 10/22/20 05:52 White Blood Count 3.9 x10^3/uL Red Blood Count 3.95 x10^6/uL Hemoglobin 12.5 g/dL Hematocrit 37.2 % Mean Corpuscular Volume 94 fL Mean Corpuscular Hemoglobin 32 pg Mean Corpuscular Hemoglobin Concent 34 g/dL Red Cell Distribution Width 13.7 % Platelet Count 139 x10^3/uL Neutrophils (%) (Auto) 59 % Lymphocytes (%) (Auto) 22 % Monocytes (%) (Auto) 14 % Eosinophils (%) (Auto) 4 % Basophils (%) (Auto) 1 % Neutrophils # (Auto) 2.3 x10^3uL Lymphocytes # (Auto) 0.9 x10^3/uL Monocytes # (Auto) 0.5 x10^3/uL Eosinophils # (Auto) 0.2 x10^3/uL Basophils # (Auto) 0.0 x10^3/uL Sodium Level 145 mmol/L Potassium Level 4.3 mmol/L Chloride Level 110 mmol/L Carbon Dioxide Level 31 mmol/L Anion Gap 4 Blood Urea Nitrogen 33 mg/dL Creatinine 0.8 mg/dL Estimated GFR (Cockcroft-Gault) 92.8 BUN/Creatinine Ratio 41 Glucose Level 99 mg/dL Calcium Level 8.9 mg/dL Total Bilirubin 0.5 mg/dL Aspartate Amino Transf (AST/SGOT) 12 U/L Alanine Aminotransferase (ALT/SGPT) 19 U/L Alkaline Phosphatase 77 U/L Total Protein 5.9 g/dL Albumin 3.3 g/dL Albumin/Globulin Ratio 1.3 Current Medications Medications (Trade) Dose Ordered Sig/Kiera Route PRN Reason Start Time Stop Time Status Last Admin Dose Admin Midazolam HCl (Versed) 5 mg 1X ONCE IM 10/09/20 23:00 10/09/20 23:07 DC 10/09/20 23:23 Lactated Ringer's 1,000 ml @ 1,000 mls/hr 1X ONCE IV 10/09/20 23:00 10/09/20 23:59 DC Levofloxacin (Levaquin) 750 mg 1X ONCE PO 10/10/20 01:00 10/10/20 01:01 DC 10/10/20 04:27 Acetaminophen (Tylenol) 650 mg PRN Q6HRS PRN PO MILD PAIN / TEMP > 100.3'F 10/10/20 05:00 Multi-Ingredient Ointment (Analgesic [place]) 1 gera PRN QID PRN TP MUSCLE PAIN 10/10/20 05:00 Al Hydroxide/Mg Hydroxide (Mylanta Plus Xs) 15 ml PRN AFTMEALHC PRN PO DYSPEPSIA 10/10/20 05:00 Magnesium Hydroxide (Milk Of Magnesia) 2,400 mg PRN QHS PRN PO CONSTIPATION 2ND CHOICE 10/10/20 05:00 Aspirin (Aspirin Enteric Coated) 81 mg DAILY08 PO 10/10/20 08:00 10/21/20 08:35 Atorvastatin Calcium (Lipitor) 10 mg QHS PO 10/10/20 21:00 10/21/20 20:14 Bisacodyl (Dulcolax Tab) 5 mg PRN DAILY PRN PO CONSTIPATION 1ST CHOICE 10/10/20 05:30 Buspirone HCl (Buspar) 5 mg BID PO 10/10/20 09:00 10/21/20 20:14 Calcium Polycarbophil (Fibercon) 1,250 mg DAILY PO 10/10/20 09:00 10/21/20 08:35 Citalopram Hydrobromide (CeleXA) 20 mg DAILY PO 10/10/20 09:00 10/21/20 08:35 Docusate Sodium (Colace) 100 mg PRN DAILY PRN PO HARD STOOLS 10/10/20 05:30 Meloxicam (Mobic) 15 mg HS PO 10/10/20 21:00 10/21/20 20:14 Memantine (Namenda) 5 mg DAILY PO 10/10/20 09:00 10/12/20 16:01 DC 10/12/20 08:05 Olanzapine (ZyPREXA ZYDIS) 2.5 mg PRN BID PRN PO ANXIETY / AGITATION 10/10/20 05:30 10/19/20 21:30 Polyethylene Glycol (miraLAX) 17 gm DAILYWSUP PO 10/10/20 17:00 10/21/20 17:41 Trazodone HCl (Desyrel) 50 mg PRN QHS PRN PO INSOMNIA 10/10/20 05:30 10/15/20 01:22 Doxylamine Succinate (Unisom) 25 mg QHS PO 10/10/20 21:00 10/16/20 17:38 DC 10/15/20 19:43 Multivitamins/ Calcium (Thera-M Plus) 1 tab QMWF@0900 PO 10/10/20 09:00 10/19/20 07:58 Pantoprazole Sodium (Protonix) 40 mg HS PO 10/10/20 21:00 10/21/20 20:14 Non-Formulary Medication ([Potassium Tablet] ) 99 mg DAILY PO 10/10/20 09:00 UNV Doxycycline Hyclate (Vibra-Tab) 100 mg BID PO 10/12/20 21:00 10/21/20 22:00 DC 10/21/20 20:13 Memantine (Namenda) 10 mg DAILY PO 10/13/20 09:00 10/21/20 08:35 Lactobacillus Rhamnosus (Culturelle) 1 cap BID PO 10/16/20 09:00 10/21/20 20:13 Melatonin (Melatonin) 3 mg HS PO 10/16/20 21:00 10/21/20 20:14 Quetiapine Fumarate (SEROquel) 12.5 mg DAILY PO 10/19/20 09:00 10/21/20 08:35 I have reviewed the current psychotropics carefully including drug interactions. Risk benefit ratio favors no change other than as noted in my dictated progress note. 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
[2020-10-22] MEDS: ASPIRIN ENTERIC COATED 81 MG TABLET.DR. PO SCH (08:25)
[2020-10-22] MEDS: CALCIUM POLYCARBOPHIL 625 MG TABLET PO SCH (08:25)
[2020-10-22] MEDS: MEMANTINE 10 MG TABLET. PO SCH (08:25)
[2020-10-22] MEDS: CITALOPRAM 20 MG TABLET. PO SCH (08:25)
[2020-10-22] MEDS: busPIRone 5 MG TABLET. PO SCH ×2 (08:25→20:49)
[2020-10-22] MEDS: MULTIVITAMIN with MINERAL TABLET. PO SCH (08:25)
[2020-10-22] MEDS: QUEtiapine 25 MG TABLET. PO SCH (08:25)
[2020-10-22] MEDS: LACTOBACILLUS RHAMNOSUS GG 1 CAPSULE. PO SCH ×2 (08:25→20:49)
[2020-10-22 15:49] VITALS: BP 111/68
[2020-10-22] MEDS: POLYETHYLENE GLYCOL 3350 17 GM PACKET. PO SCH (17:17)
[2020-10-22] MEDS: MELATONIN 3 MG TABLET PO SCH (20:49)
[2020-10-22] MEDS: MELOXICAM 15 MG TABLET. PO SCH (20:49)
[2020-10-22] MEDS: PANTOPRAZOLE 40 MG TABLET. PO SCH (20:49)
[2020-10-22] MEDS: ATORVASTATIN CALCIUM 10 MG TABLET. PO SCH (20:49)
--- NOTE | 2020-10-22 22:00 | PDOC ---
Exam Note: Leonard Note: Please also refer to the separate dictated note~for this date of service dictated separately.~Patient seen individually. Discussed the patient with Nursing staff reviewed the chart.~Reviewed interim history and current functioning. Reviewed vital signs,~Labs/ Radiology~and current medications noted below. Continue current treatment with the changes noted in the dictated addendum note Assessment: Vital Signs/I&O: Vital Signs Date Time Temp Pulse Resp B/P (MAP) Pulse Ox O2 Delivery O2 Flow Rate FiO2 10/22/20 15:49 97.9 61 18 111/68 (82) 98 10/20/20 16:13 Room Air I & O 10/21/20 10/21/20 10/22/20 15:00 23:00 07:00 Intake Total 240 ml 600 ml Balance 240 ml 600 ml Labs: Laboratory Tests Test 10/22/20 05:52 White Blood Count 3.9 x10^3/uL (4.0-11.0) L Red Blood Count 3.95 x10^6/uL (4.30-5.70) L Hemoglobin 12.5 g/dL (13.0-17.5) L Hematocrit 37.2 % (39.0-53.0) L Mean Corpuscular Volume 94 fL (79-100) Mean Corpuscular Hemoglobin 32 pg (25-35) Mean Corpuscular Hemoglobin Concent 34 g/dL (31-37) Red Cell Distribution Width 13.7 % (11.5-14.5) Platelet Count 139 x10^3/uL (140-400) L Neutrophils (%) (Auto) 59 % (31-73) Lymphocytes (%) (Auto) 22 % (24-48) L Monocytes (%) (Auto) 14 % (0-9) H Eosinophils (%) (Auto) 4 % (0-3) H Basophils (%) (Auto) 1 % (0-3) Neutrophils # (Auto) 2.3 x10^3uL (1.8-7.7) Lymphocytes # (Auto) 0.9 x10^3/uL (1.0-4.8) L Monocytes # (Auto) 0.5 x10^3/uL (0.0-1.1) Eosinophils # (Auto) 0.2 x10^3/uL (0.0-0.7) Basophils # (Auto) 0.0 x10^3/uL (0.0-0.2) Sodium Level 145 mmol/L (136-145) Potassium Level 4.3 mmol/L (3.5-5.1) Chloride Level 110 mmol/L (98-107) H Carbon Dioxide Level 31 mmol/L (21-32) Anion Gap 4 (6-14) L Blood Urea Nitrogen 33 mg/dL (8-26) H Creatinine 0.8 mg/dL (0.7-1.3) Estimated GFR (Cockcroft-Gault) 92.8 BUN/Creatinine Ratio 41 (6-20) H Glucose Level 99 mg/dL (70-99) Calcium Level 8.9 mg/dL (8.5-10.1) Total Bilirubin 0.5 mg/dL (0.2-1.0) Aspartate Amino Transferase (AST) 12 U/L (15-37) L Alanine Aminotransferase (ALT) 19 U/L (16-63) Alkaline Phosphatase 77 U/L (46-116) Total Protein 5.9 g/dL (6.4-8.2) L Albumin 3.3 g/dL (3.4-5.0) L Albumin/Globulin Ratio 1.3 (1.0-1.7) Current Medications: Meds: Laboratory Tests Test 10/22/20 05:52 White Blood Count 3.9 x10^3/uL Red Blood Count 3.95 x10^6/uL Hemoglobin 12.5 g/dL Hematocrit 37.2 % Mean Corpuscular Volume 94 fL Mean Corpuscular Hemoglobin 32 pg Mean Corpuscular Hemoglobin Concent 34 g/dL Red Cell Distribution Width 13.7 % Platelet Count 139 x10^3/uL Neutrophils (%) (Auto) 59 % Lymphocytes (%) (Auto) 22 % Monocytes (%) (Auto) 14 % Eosinophils (%) (Auto) 4 % Basophils (%) (Auto) 1 % Neutrophils # (Auto) 2.3 x10^3uL Lymphocytes # (Auto) 0.9 x10^3/uL Monocytes # (Auto) 0.5 x10^3/uL Eosinophils # (Auto) 0.2 x10^3/uL Basophils # (Auto) 0.0 x10^3/uL Sodium Level 145 mmol/L Potassium Level 4.3 mmol/L Chloride Level 110 mmol/L Carbon Dioxide Level 31 mmol/L Anion Gap 4 Blood Urea Nitrogen 33 mg/dL Creatinine 0.8 mg/dL Estimated GFR (Cockcroft-Gault) 92.8 BUN/Creatinine Ratio 41 Glucose Level 99 mg/dL Calcium Level 8.9 mg/dL Total Bilirubin 0.5 mg/dL Aspartate Amino Transf (AST/SGOT) 12 U/L Alanine Aminotransferase (ALT/SGPT) 19 U/L Alkaline Phosphatase 77 U/L Total Protein 5.9 g/dL Albumin 3.3 g/dL Albumin/Globulin Ratio 1.3 Current Medications Medications (Trade) Dose Ordered Sig/Kiera Route PRN Reason Start Time Stop Time Status Last Admin Dose Admin Midazolam HCl (Versed) 5 mg 1X ONCE IM 10/09/20 23:00 10/09/20 23:07 DC 10/09/20 23:23 Lactated Ringer's 1,000 ml @ 1,000 mls/hr 1X ONCE IV 10/09/20 23:00 10/09/20 23:59 DC Levofloxacin (Levaquin) 750 mg 1X ONCE PO 10/10/20 01:00 10/10/20 01:01 DC 10/10/20 04:27 Acetaminophen (Tylenol) 650 mg PRN Q6HRS PRN PO MILD PAIN / TEMP > 100.3'F 10/10/20 05:00 Multi-Ingredient Ointment (Analgesic [place]) 1 gera PRN QID PRN TP MUSCLE PAIN 10/10/20 05:00 Al Hydroxide/Mg Hydroxide (Mylanta Plus Xs) 15 ml PRN AFTMEALHC PRN PO DYSPEPSIA 10/10/20 05:00 Magnesium Hydroxide (Milk Of Magnesia) 2,400 mg PRN QHS PRN PO CONSTIPATION 2ND CHOICE 10/10/20 05:00 Aspirin (Aspirin Enteric Coated) 81 mg DAILY08 PO 10/10/20 08:00 10/22/20 08:25 Atorvastatin Calcium (Lipitor) 10 mg QHS PO 10/10/20 21:00 10/22/20 20:49 Bisacodyl (Dulcolax Tab) 5 mg PRN DAILY PRN PO CONSTIPATION 1ST CHOICE 10/10/20 05:30 Buspirone HCl (Buspar) 5 mg BID PO 10/10/20 09:00 10/22/20 20:49 Calcium Polycarbophil (Fibercon) 1,250 mg DAILY PO 10/10/20 09:00 10/22/20 08:25 Citalopram Hydrobromide (CeleXA) 20 mg DAILY PO 10/10/20 09:00 10/22/20 08:25 Docusate Sodium (Colace) 100 mg PRN DAILY PRN PO HARD STOOLS 10/10/20 05:30 Meloxicam (Mobic) 15 mg HS PO 10/10/20 21:00 10/22/20 20:49 Memantine (Namenda) 5 mg DAILY PO 10/10/20 09:00 10/12/20 16:01 DC 10/12/20 08:05 Olanzapine (ZyPREXA ZYDIS) 2.5 mg PRN BID PRN PO ANXIETY / AGITATION 10/10/20 05:30 10/19/20 21:30 Polyethylene Glycol (miraLAX) 17 gm DAILYWSUP PO 10/10/20 17:00 10/22/20 17:17 Trazodone HCl (Desyrel) 50 mg PRN QHS PRN PO INSOMNIA 10/10/20 05:30 10/15/20 01:22 Doxylamine Succinate (Unisom) 25 mg QHS PO 10/10/20 21:00 10/16/20 17:38 DC 10/15/20 19:43 Multivitamins/ Calcium (Thera-M Plus) 1 tab QMWF@0900 PO 10/10/20 09:00 10/22/20 08:25 Pantoprazole Sodium (Protonix) 40 mg HS PO 10/10/20 21:00 10/22/20 20:49 Non-Formulary Medication ([Potassium Tablet] ) 99 mg DAILY PO 10/10/20 09:00 UNV Doxycycline Hyclate (Vibra-Tab) 100 mg BID PO 10/12/20 21:00 10/21/20 22:00 DC 10/21/20 20:13 Memantine (Namenda) 10 mg DAILY PO 10/13/20 09:00 10/22/20 08:25 Lactobacillus Rhamnosus (Culturelle) 1 cap BID PO 10/16/20 09:00 10/22/20 20:49 Melatonin (Melatonin) 3 mg HS PO 10/16/20 21:00 10/22/20 20:49 Quetiapine Fumarate (SEROquel) 12.5 mg DAILY PO 10/19/20 09:00 10/22/20 08:25 I have reviewed the current psychotropics carefully including drug interactions. Risk benefit ratio favors no change other than as noted in my dictated progress note. 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
[2020-10-23 06:00] VITALS: BP 121/76
--- NOTE | 2020-10-23 06:41 | PDOC ---
Exam Note: Leonard Note: This note is a late entry for 10/22/2020 covers elements not covered in my initial note. Subjective: The patient was seen individually in the evening of 10/22/2020 with Gabby LEAL, discussed and reviewed the chart. The patient slept 7-1/2 hours previous night. He has been doing better, wandering has been less. He occasionally gets agitated when asked to go to a shower. Review of Systems: No CV, , pulmonary, eye system symptoms on review. Reliability poor. Mental Status Exam: The patient is oriented to himself. Insight and judgment, recent and remote memory, attention and concentration, fund of knowledge is poor consistent with his diagnoses. Laboratory Data: Reviewed. Impression: Major neurocognitive disorder Alzheimer vascular with delusion, depression, behavioral disturbance. Impulse control disorder unspecified. Anxiety disorder unspecified. Plan: Maintain rest of the psychotropics unchanged. Assessment: Vital Signs/I&O: Vital Signs Date Time Temp Pulse Resp B/P (MAP) Pulse Ox O2 Delivery O2 Flow Rate FiO2 10/23/20 06:00 98.5 78 18 121/76 (91) 98 Room Air I & O 10/22/20 10/22/20 10/23/20 15:00 23:00 07:00 Intake Total 840 ml 360 ml 240 ml Balance 840 ml 360 ml 240 ml Current Medications: Meds: Current Medications Medications (Trade) Dose Ordered Sig/Kiera Route PRN Reason Start Time Stop Time Status Last Admin Dose Admin Midazolam HCl (Versed) 5 mg 1X ONCE IM 10/09/20 23:00 10/09/20 23:07 DC 10/09/20 23:23 Lactated Ringer's 1,000 ml @ 1,000 mls/hr 1X ONCE IV 10/09/20 23:00 10/09/20 23:59 DC Levofloxacin (Levaquin) 750 mg 1X ONCE PO 10/10/20 01:00 10/10/20 01:01 DC 10/10/20 04:27 Acetaminophen (Tylenol) 650 mg PRN Q6HRS PRN PO MILD PAIN / TEMP > 100.3'F 10/10/20 05:00 Multi-Ingredient Ointment (Analgesic [place]) 1 gera PRN QID PRN TP MUSCLE PAIN 10/10/20 05:00 Al Hydroxide/Mg Hydroxide (Mylanta Plus Xs) 15 ml PRN AFTMEALHC PRN PO DYSPEPSIA 10/10/20 05:00 Magnesium Hydroxide (Milk Of Magnesia) 2,400 mg PRN QHS PRN PO CONSTIPATION 2ND CHOICE 10/10/20 05:00 Aspirin (Aspirin Enteric Coated) 81 mg DAILY08 PO 10/10/20 08:00 10/22/20 08:25 Atorvastatin Calcium (Lipitor) 10 mg QHS PO 10/10/20 21:00 10/22/20 20:49 Bisacodyl (Dulcolax Tab) 5 mg PRN DAILY PRN PO CONSTIPATION 1ST CHOICE 10/10/20 05:30 Buspirone HCl (Buspar) 5 mg BID PO 10/10/20 09:00 10/22/20 20:49 Calcium Polycarbophil (Fibercon) 1,250 mg DAILY PO 10/10/20 09:00 10/22/20 08:25 Citalopram Hydrobromide (CeleXA) 20 mg DAILY PO 10/10/20 09:00 10/22/20 08:25 Docusate Sodium (Colace) 100 mg PRN DAILY PRN PO HARD STOOLS 10/10/20 05:30 Meloxicam (Mobic) 15 mg HS PO 10/10/20 21:00 10/22/20 20:49 Memantine (Namenda) 5 mg DAILY PO 10/10/20 09:00 10/12/20 16:01 DC 10/12/20 08:05 Olanzapine (ZyPREXA ZYDIS) 2.5 mg PRN BID PRN PO ANXIETY / AGITATION 10/10/20 05:30 10/19/20 21:30 Polyethylene Glycol (miraLAX) 17 gm DAILYWSUP PO 10/10/20 17:00 10/22/20 17:17 Trazodone HCl (Desyrel) 50 mg PRN QHS PRN PO INSOMNIA 10/10/20 05:30 10/15/20 01:22 Doxylamine Succinate (Unisom) 25 mg QHS PO 10/10/20 21:00 10/16/20 17:38 DC 10/15/20 19:43 Multivitamins/ Calcium (Thera-M Plus) 1 tab QMWF@0900 PO 10/10/20 09:00 10/22/20 08:25 Pantoprazole Sodium (Protonix) 40 mg HS PO 10/10/20 21:00 10/22/20 20:49 Non-Formulary Medication ([Potassium Tablet] ) 99 mg DAILY PO 10/10/20 09:00 UNV Doxycycline Hyclate (Vibra-Tab) 100 mg BID PO 10/12/20 21:00 10/21/20 22:00 DC 10/21/20 20:13 Memantine (Namenda) 10 mg DAILY PO 10/13/20 09:00 10/22/20 08:25 Lactobacillus Rhamnosus (Culturelle) 1 cap BID PO 10/16/20 09:00 10/22/20 20:49 Melatonin (Melatonin) 3 mg HS PO 10/16/20 21:00 10/22/20 20:49 Quetiapine Fumarate (SEROquel) 12.5 mg DAILY PO 10/19/20 09:00 10/22/20 08:25 I have reviewed the current psychotropics carefully including drug interactions. Risk benefit ratio favors no change other than as noted in my dictated progress note. 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
[2020-10-23] MEDS: POLYETHYLENE GLYCOL 3350 17 GM PACKET. PO SCH (08:48)
[2020-10-23] MEDS: busPIRone 5 MG TABLET. PO SCH ×2 (08:48→21:25)
[2020-10-23] MEDS: ASPIRIN ENTERIC COATED 81 MG TABLET.DR. PO SCH (08:48)
[2020-10-23] MEDS: MEMANTINE 10 MG TABLET. PO SCH (08:48)
[2020-10-23] MEDS: QUEtiapine 25 MG TABLET. PO SCH (08:49)
[2020-10-23] MEDS: LACTOBACILLUS RHAMNOSUS GG 1 CAPSULE. PO SCH ×2 (08:49→21:25)
[2020-10-23] MEDS: CITALOPRAM 20 MG TABLET. PO SCH (08:49)
[2020-10-23] MEDS: CALCIUM POLYCARBOPHIL 625 MG TABLET PO SCH (08:49)
[2020-10-23 16:10] VITALS: BP 110/69
[2020-10-23] MEDS: MELOXICAM 15 MG TABLET. PO SCH (21:24)
[2020-10-23] MEDS: MELATONIN 3 MG TABLET PO SCH (21:24)
[2020-10-23] MEDS: PANTOPRAZOLE 40 MG TABLET. PO SCH (21:24)
[2020-10-23] MEDS: ATORVASTATIN CALCIUM 10 MG TABLET. PO SCH (21:25)
--- NOTE | 2020-10-23 22:59 | PDOC ---
Exam Note: Leonard Note: Please also refer to the separate dictated note~for this date of service dictated separately.~Patient seen individually. Discussed the patient with Nursing staff reviewed the chart.~Reviewed interim history and current functioning. Reviewed vital signs,~Labs/ Radiology~and current medications noted below. Continue current treatment with the changes noted in the dictated addendum note Assessment: Vital Signs/I&O: Vital Signs Date Time Temp Pulse Resp B/P (MAP) Pulse Ox O2 Delivery O2 Flow Rate FiO2 10/23/20 16:10 98.0 68 20 110/69 (83) 95 10/23/20 06:00 Room Air I & O 10/22/20 10/22/20 10/23/20 15:00 23:00 07:00 Intake Total 840 ml 360 ml 240 ml Balance 840 ml 360 ml 240 ml Current Medications: Meds: Current Medications Medications (Trade) Dose Ordered Sig/Kiera Route PRN Reason Start Time Stop Time Status Last Admin Dose Admin Midazolam HCl (Versed) 5 mg 1X ONCE IM 10/09/20 23:00 10/09/20 23:07 DC 10/09/20 23:23 Lactated Ringer's 1,000 ml @ 1,000 mls/hr 1X ONCE IV 10/09/20 23:00 10/09/20 23:59 DC Levofloxacin (Levaquin) 750 mg 1X ONCE PO 10/10/20 01:00 10/10/20 01:01 DC 10/10/20 04:27 Acetaminophen (Tylenol) 650 mg PRN Q6HRS PRN PO MILD PAIN / TEMP > 100.3'F 10/10/20 05:00 Multi-Ingredient Ointment (Analgesic [place]) 1 gera PRN QID PRN TP MUSCLE PAIN 10/10/20 05:00 Al Hydroxide/Mg Hydroxide (Mylanta Plus Xs) 15 ml PRN AFTMEALHC PRN PO DYSPEPSIA 10/10/20 05:00 Magnesium Hydroxide (Milk Of Magnesia) 2,400 mg PRN QHS PRN PO CONSTIPATION 2ND CHOICE 10/10/20 05:00 Aspirin (Aspirin Enteric Coated) 81 mg DAILY08 PO 10/10/20 08:00 10/23/20 08:48 Atorvastatin Calcium (Lipitor) 10 mg QHS PO 10/10/20 21:00 10/23/20 21:25 Bisacodyl (Dulcolax Tab) 5 mg PRN DAILY PRN PO CONSTIPATION 1ST CHOICE 10/10/20 05:30 Buspirone HCl (Buspar) 5 mg BID PO 10/10/20 09:00 10/23/20 21:25 Calcium Polycarbophil (Fibercon) 1,250 mg DAILY PO 10/10/20 09:00 10/23/20 08:49 Citalopram Hydrobromide (CeleXA) 20 mg DAILY PO 10/10/20 09:00 10/23/20 08:49 Docusate Sodium (Colace) 100 mg PRN DAILY PRN PO HARD STOOLS 10/10/20 05:30 Meloxicam (Mobic) 15 mg HS PO 10/10/20 21:00 10/23/20 21:24 Memantine (Namenda) 5 mg DAILY PO 10/10/20 09:00 10/12/20 16:01 DC 10/12/20 08:05 Olanzapine (ZyPREXA ZYDIS) 2.5 mg PRN BID PRN PO ANXIETY / AGITATION 10/10/20 05:30 10/23/20 21:24 Polyethylene Glycol (miraLAX) 17 gm DAILYWSUP PO 10/10/20 17:00 10/23/20 08:48 Trazodone HCl (Desyrel) 50 mg PRN QHS PRN PO INSOMNIA 10/10/20 05:30 10/15/20 01:22 Doxylamine Succinate (Unisom) 25 mg QHS PO 10/10/20 21:00 10/16/20 17:38 DC 10/15/20 19:43 Multivitamins/ Calcium (Thera-M Plus) 1 tab QMWF@0900 PO 10/10/20 09:00 10/22/20 08:25 Pantoprazole Sodium (Protonix) 40 mg HS PO 10/10/20 21:00 10/23/20 21:24 Non-Formulary Medication ([Potassium Tablet] ) 99 mg DAILY PO 10/10/20 09:00 UNV Doxycycline Hyclate (Vibra-Tab) 100 mg BID PO 10/12/20 21:00 10/21/20 22:00 DC 10/21/20 20:13 Memantine (Namenda) 10 mg DAILY PO 10/13/20 09:00 10/23/20 08:48 Lactobacillus Rhamnosus (Culturelle) 1 cap BID PO 10/16/20 09:00 10/23/20 21:25 Melatonin (Melatonin) 3 mg HS PO 10/16/20 21:00 10/23/20 21:24 Quetiapine Fumarate (SEROquel) 12.5 mg DAILY PO 10/19/20 09:00 10/23/20 08:49 I have reviewed the current psychotropics carefully including drug interactions. Risk benefit ratio favors no change other than as noted in my dictated progress note. 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
[2020-10-24 05:56] VITALS: BP 151/73
[2020-10-24] MEDS: POLYETHYLENE GLYCOL 3350 17 GM PACKET. PO SCH (08:56)
[2020-10-24] MEDS: MULTIVITAMIN with MINERAL TABLET. PO SCH (09:01)
[2020-10-24] MEDS: busPIRone 5 MG TABLET. PO SCH ×2 (09:01→21:10)
[2020-10-24] MEDS: MEMANTINE 10 MG TABLET. PO SCH (09:01)
[2020-10-24] MEDS: ASPIRIN ENTERIC COATED 81 MG TABLET.DR. PO SCH (09:01)
[2020-10-24] MEDS: QUEtiapine 25 MG TABLET. PO SCH (09:01)
[2020-10-24] MEDS: CITALOPRAM 20 MG TABLET. PO SCH (09:01)
[2020-10-24] MEDS: LACTOBACILLUS RHAMNOSUS GG 1 CAPSULE. PO SCH ×2 (09:01→21:10)
[2020-10-24] MEDS: CALCIUM POLYCARBOPHIL 625 MG TABLET PO SCH (09:01)
[2020-10-24 15:41] VITALS: BP 103/58
[2020-10-24] MEDS: MELOXICAM 15 MG TABLET. PO SCH (21:10)
[2020-10-24] MEDS: MELATONIN 3 MG TABLET PO SCH (21:10)
[2020-10-24] MEDS: ATORVASTATIN CALCIUM 10 MG TABLET. PO SCH (21:10)
[2020-10-24] MEDS: PANTOPRAZOLE 40 MG TABLET. PO SCH (21:10)
--- NOTE | 2020-10-24 22:02 | PDOC ---
Exam Note: Leonard Note: Please also refer to the separate dictated note~for this date of service dictated separately.~Patient seen individually. Discussed the patient with Nursing staff reviewed the chart.~Reviewed interim history and current functioning. Reviewed vital signs,~Labs/ Radiology~and current medications noted below. Continue current treatment with the changes noted in the dictated addendum note Assessment: Vital Signs/I&O: Vital Signs Date Time Temp Pulse Resp B/P (MAP) Pulse Ox O2 Delivery O2 Flow Rate FiO2 10/24/20 15:41 97.1 71 18 103/58 (73) 100 10/23/20 06:00 Room Air I & O 10/23/20 10/23/20 10/24/20 15:00 23:00 07:00 Intake Total 840 ml 600 ml Balance 840 ml 600 ml Current Medications: Meds: Current Medications Medications (Trade) Dose Ordered Sig/Kiera Route PRN Reason Start Time Stop Time Status Last Admin Dose Admin Midazolam HCl (Versed) 5 mg 1X ONCE IM 10/09/20 23:00 10/09/20 23:07 DC 10/09/20 23:23 Lactated Ringer's 1,000 ml @ 1,000 mls/hr 1X ONCE IV 10/09/20 23:00 10/09/20 23:59 DC Levofloxacin (Levaquin) 750 mg 1X ONCE PO 10/10/20 01:00 10/10/20 01:01 DC 10/10/20 04:27 Acetaminophen (Tylenol) 650 mg PRN Q6HRS PRN PO MILD PAIN / TEMP > 100.3'F 10/10/20 05:00 Multi-Ingredient Ointment (Analgesic [place]) 1 gera PRN QID PRN TP MUSCLE PAIN 10/10/20 05:00 Al Hydroxide/Mg Hydroxide (Mylanta Plus Xs) 15 ml PRN AFTMEALHC PRN PO DYSPEPSIA 10/10/20 05:00 Magnesium Hydroxide (Milk Of Magnesia) 2,400 mg PRN QHS PRN PO CONSTIPATION 2ND CHOICE 10/10/20 05:00 Aspirin (Aspirin Enteric Coated) 81 mg DAILY08 PO 10/10/20 08:00 10/24/20 09:01 Atorvastatin Calcium (Lipitor) 10 mg QHS PO 10/10/20 21:00 10/24/20 21:10 Bisacodyl (Dulcolax Tab) 5 mg PRN DAILY PRN PO CONSTIPATION 1ST CHOICE 10/10/20 05:30 Buspirone HCl (Buspar) 5 mg BID PO 10/10/20 09:00 10/24/20 21:10 Calcium Polycarbophil (Fibercon) 1,250 mg DAILY PO 10/10/20 09:00 10/24/20 09:01 Citalopram Hydrobromide (CeleXA) 20 mg DAILY PO 10/10/20 09:00 10/24/20 09:01 Docusate Sodium (Colace) 100 mg PRN DAILY PRN PO HARD STOOLS 10/10/20 05:30 Meloxicam (Mobic) 15 mg HS PO 10/10/20 21:00 10/24/20 21:10 Memantine (Namenda) 5 mg DAILY PO 10/10/20 09:00 10/12/20 16:01 DC 10/12/20 08:05 Olanzapine (ZyPREXA ZYDIS) 2.5 mg PRN BID PRN PO ANXIETY / AGITATION 10/10/20 05:30 10/23/20 21:24 Polyethylene Glycol (miraLAX) 17 gm DAILYWSUP PO 10/10/20 17:00 10/24/20 08:56 Trazodone HCl (Desyrel) 50 mg PRN QHS PRN PO INSOMNIA 10/10/20 05:30 10/15/20 01:22 Doxylamine Succinate (Unisom) 25 mg QHS PO 10/10/20 21:00 10/16/20 17:38 DC 10/15/20 19:43 Multivitamins/ Calcium (Thera-M Plus) 1 tab QMWF@0900 PO 10/10/20 09:00 10/24/20 09:01 Pantoprazole Sodium (Protonix) 40 mg HS PO 10/10/20 21:00 10/24/20 21:10 Non-Formulary Medication ([Potassium Tablet] ) 99 mg DAILY PO 10/10/20 09:00 UNV Doxycycline Hyclate (Vibra-Tab) 100 mg BID PO 10/12/20 21:00 10/21/20 22:00 DC 10/21/20 20:13 Memantine (Namenda) 10 mg DAILY PO 10/13/20 09:00 10/24/20 09:01 Lactobacillus Rhamnosus (Culturelle) 1 cap BID PO 10/16/20 09:00 10/24/20 21:10 Melatonin (Melatonin) 3 mg HS PO 10/16/20 21:00 10/24/20 21:10 Quetiapine Fumarate (SEROquel) 12.5 mg DAILY PO 10/19/20 09:00 10/24/20 09:01 I have reviewed the current psychotropics carefully including drug interactions. Risk benefit ratio favors no change other than as noted in my dictated progress note. 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
[2020-10-25 05:44] VITALS: BP 126/77
[2020-10-25] MEDS: busPIRone 5 MG TABLET. PO SCH ×2 (08:11→20:14)
[2020-10-25] MEDS: ASPIRIN ENTERIC COATED 81 MG TABLET.DR. PO SCH (08:11)
[2020-10-25] MEDS: MEMANTINE 10 MG TABLET. PO SCH (08:11)
[2020-10-25] MEDS: CALCIUM POLYCARBOPHIL 625 MG TABLET PO SCH (08:11)
[2020-10-25] MEDS: CITALOPRAM 20 MG TABLET. PO SCH (08:11)
[2020-10-25] MEDS: LACTOBACILLUS RHAMNOSUS GG 1 CAPSULE. PO SCH ×2 (08:11→20:14)
[2020-10-25] MEDS: QUEtiapine 25 MG TABLET. PO SCH (08:12)
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
[2020-10-25 16:06] VITALS: BP 112/65
[2020-10-25] MEDS: POLYETHYLENE GLYCOL 3350 17 GM PACKET. PO SCH (17:00)
[2020-10-25] MEDS: MELOXICAM 15 MG TABLET. PO SCH (20:14)
[2020-10-25] MEDS: PANTOPRAZOLE 40 MG TABLET. PO SCH (20:15)
[2020-10-25] MEDS: MELATONIN 3 MG TABLET PO SCH (20:15)
[2020-10-25] MEDS: ATORVASTATIN CALCIUM 10 MG TABLET. PO SCH (20:15)
--- NOTE | 2020-10-25 21:54 | PDOC ---
Exam Note: Leonard Note: Please also refer to the separate dictated note~for this date of service dictated separately.~Patient seen individually. Discussed the patient with Nursing staff reviewed the chart.~Reviewed interim history and current functioning. Reviewed vital signs,~Labs/ Radiology~and current medications noted below. Continue current treatment with the changes noted in the dictated addendum note Assessment: Vital Signs/I&O: Vital Signs Date Time Temp Pulse Resp B/P (MAP) Pulse Ox O2 Delivery O2 Flow Rate FiO2 10/25/20 16:06 97.0 71 16 112/65 (81) 96 10/23/20 06:00 Room Air I & O 10/24/20 10/24/20 10/25/20 14:59 22:59 06:59 Intake Total 480 ml 360 ml Balance 480 ml 360 ml Current Medications: Meds: Current Medications Medications (Trade) Dose Ordered Sig/Kiera Route PRN Reason Start Time Stop Time Status Last Admin Dose Admin Midazolam HCl (Versed) 5 mg 1X ONCE IM 10/09/20 23:00 10/09/20 23:07 DC 10/09/20 23:23 Lactated Ringer's 1,000 ml @ 1,000 mls/hr 1X ONCE IV 10/09/20 23:00 10/09/20 23:59 DC Levofloxacin (Levaquin) 750 mg 1X ONCE PO 10/10/20 01:00 10/10/20 01:01 DC 10/10/20 04:27 Acetaminophen (Tylenol) 650 mg PRN Q6HRS PRN PO MILD PAIN / TEMP > 100.3'F 10/10/20 05:00 Multi-Ingredient Ointment (Analgesic [place]) 1 gera PRN QID PRN TP MUSCLE PAIN 10/10/20 05:00 Al Hydroxide/Mg Hydroxide (Mylanta Plus Xs) 15 ml PRN AFTMEALHC PRN PO DYSPEPSIA 10/10/20 05:00 Magnesium Hydroxide (Milk Of Magnesia) 2,400 mg PRN QHS PRN PO CONSTIPATION 2ND CHOICE 10/10/20 05:00 Aspirin (Aspirin Enteric Coated) 81 mg DAILY08 PO 10/10/20 08:00 10/25/20 08:11 Atorvastatin Calcium (Lipitor) 10 mg QHS PO 10/10/20 21:00 10/25/20 20:15 Bisacodyl (Dulcolax Tab) 5 mg PRN DAILY PRN PO CONSTIPATION 1ST CHOICE 10/10/20 05:30 Buspirone HCl (Buspar) 5 mg BID PO 10/10/20 09:00 10/25/20 20:14 Calcium Polycarbophil (Fibercon) 1,250 mg DAILY PO 10/10/20 09:00 10/25/20 08:11 Citalopram Hydrobromide (CeleXA) 20 mg DAILY PO 10/10/20 09:00 10/25/20 08:11 Docusate Sodium (Colace) 100 mg PRN DAILY PRN PO HARD STOOLS 10/10/20 05:30 Meloxicam (Mobic) 15 mg HS PO 10/10/20 21:00 10/25/20 20:14 Memantine (Namenda) 5 mg DAILY PO 10/10/20 09:00 10/12/20 16:01 DC 10/12/20 08:05 Olanzapine (ZyPREXA ZYDIS) 2.5 mg PRN BID PRN PO ANXIETY / AGITATION 10/10/20 05:30 10/23/20 21:24 Polyethylene Glycol (miraLAX) 17 gm DAILYWSUP PO 10/10/20 17:00 10/24/20 08:56 Trazodone HCl (Desyrel) 50 mg PRN QHS PRN PO INSOMNIA 10/10/20 05:30 10/15/20 01:22 Doxylamine Succinate (Unisom) 25 mg QHS PO 10/10/20 21:00 10/16/20 17:38 DC 10/15/20 19:43 Multivitamins/ Calcium (Thera-M Plus) 1 tab QMWF@0900 PO 10/10/20 09:00 10/24/20 09:01 Pantoprazole Sodium (Protonix) 40 mg HS PO 10/10/20 21:00 10/25/20 20:15 Non-Formulary Medication ([Potassium Tablet] ) 99 mg DAILY PO 10/10/20 09:00 UNV Doxycycline Hyclate (Vibra-Tab) 100 mg BID PO 10/12/20 21:00 10/21/20 22:00 DC 10/21/20 20:13 Memantine (Namenda) 10 mg DAILY PO 10/13/20 09:00 10/25/20 08:11 Lactobacillus Rhamnosus (Culturelle) 1 cap BID PO 10/16/20 09:00 10/25/20 20:14 Melatonin (Melatonin) 3 mg HS PO 10/16/20 21:00 10/25/20 20:15 Quetiapine Fumarate (SEROquel) 12.5 mg DAILY PO 10/19/20 09:00 10/25/20 08:12 I have reviewed the current psychotropics carefully including drug interactions. Risk benefit ratio favors no change other than as noted in my dictated progress note. 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
[2020-10-26 05:48] VITALS: BP 133/73
--- NOTE | 2020-10-26 06:52 | PDOC ---
Exam Note: Leonard Note: This note is a late entry for 10/23/2020 covers elements not covered in my initial note. Subjective: The patient was seen individually in the evening of 10/23/2020 with Gabyb LEAL, discussed and reviewed the chart. The patient slept 7-1/2 hours previous night. He did reasonably well last night and during the day today. He remains confused. I met with him in the dayroom. Review of Systems: No CV, , pulmonary, eye system symptoms on review. Mental Status Exam: The patient is oriented to himself. Insight and judgment, recent and remote memory, attention and concentration, fund of knowledge is poor consistent with his diagnoses. Laboratory Data: Reviewed. Impression: Major neurocognitive disorder Alzheimer vascular with delusion, depression, behavioral disturbance. Impulse control disorder unspecified. Anxiety disorder unspecified. Plan: Maintain rest of the psychotropics unchanged. Assessment: Vital Signs/I&O: Vital Signs Date Time Temp Pulse Resp B/P (MAP) Pulse Ox O2 Delivery O2 Flow Rate FiO2 10/26/20 05:48 97.2 86 18 133/73 (93) 96 10/23/20 06:00 Room Air I & O 10/25/20 10/25/20 10/26/20 14:59 22:59 06:59 Intake Total 480 ml 240 ml Balance 480 ml 240 ml Current Medications: Meds: Current Medications Medications (Trade) Dose Ordered Sig/Kiera Route PRN Reason Start Time Stop Time Status Last Admin Dose Admin Midazolam HCl (Versed) 5 mg 1X ONCE IM 10/09/20 23:00 10/09/20 23:07 DC 10/09/20 23:23 Lactated Ringer's 1,000 ml @ 1,000 mls/hr 1X ONCE IV 10/09/20 23:00 10/09/20 23:59 DC Levofloxacin (Levaquin) 750 mg 1X ONCE PO 10/10/20 01:00 10/10/20 01:01 DC 10/10/20 04:27 Acetaminophen (Tylenol) 650 mg PRN Q6HRS PRN PO MILD PAIN / TEMP > 100.3'F 10/10/20 05:00 Multi-Ingredient Ointment (Analgesic [place]) 1 gera PRN QID PRN TP MUSCLE PAIN 10/10/20 05:00 Al Hydroxide/Mg Hydroxide (Mylanta Plus Xs) 15 ml PRN AFTMEALHC PRN PO DYSPEPSIA 10/10/20 05:00 Magnesium Hydroxide (Milk Of Magnesia) 2,400 mg PRN QHS PRN PO CONSTIPATION 2ND CHOICE 10/10/20 05:00 Aspirin (Aspirin Enteric Coated) 81 mg DAILY08 PO 10/10/20 08:00 10/25/20 08:11 Atorvastatin Calcium (Lipitor) 10 mg QHS PO 10/10/20 21:00 10/25/20 20:15 Bisacodyl (Dulcolax Tab) 5 mg PRN DAILY PRN PO CONSTIPATION 1ST CHOICE 10/10/20 05:30 Buspirone HCl (Buspar) 5 mg BID PO 10/10/20 09:00 10/25/20 20:14 Calcium Polycarbophil (Fibercon) 1,250 mg DAILY PO 10/10/20 09:00 10/25/20 08:11 Citalopram Hydrobromide (CeleXA) 20 mg DAILY PO 10/10/20 09:00 10/25/20 08:11 Docusate Sodium (Colace) 100 mg PRN DAILY PRN PO HARD STOOLS 10/10/20 05:30 Meloxicam (Mobic) 15 mg HS PO 10/10/20 21:00 10/25/20 20:14 Memantine (Namenda) 5 mg DAILY PO 10/10/20 09:00 10/12/20 16:01 DC 10/12/20 08:05 Olanzapine (ZyPREXA ZYDIS) 2.5 mg PRN BID PRN PO ANXIETY / AGITATION 10/10/20 05:30 10/23/20 21:24 Polyethylene Glycol (miraLAX) 17 gm DAILYWSUP PO 10/10/20 17:00 10/24/20 08:56 Trazodone HCl (Desyrel) 50 mg PRN QHS PRN PO INSOMNIA 10/10/20 05:30 10/15/20 01:22 Doxylamine Succinate (Unisom) 25 mg QHS PO 10/10/20 21:00 10/16/20 17:38 DC 10/15/20 19:43 Multivitamins/ Calcium (Thera-M Plus) 1 tab QMWF@0900 PO 10/10/20 09:00 10/24/20 09:01 Pantoprazole Sodium (Protonix) 40 mg HS PO 10/10/20 21:00 10/25/20 20:15 Non-Formulary Medication ([Potassium Tablet] ) 99 mg DAILY PO 10/10/20 09:00 UNV Doxycycline Hyclate (Vibra-Tab) 100 mg BID PO 10/12/20 21:00 10/21/20 22:00 DC 10/21/20 20:13 Memantine (Namenda) 10 mg DAILY PO 10/13/20 09:00 10/25/20 08:11 Lactobacillus Rhamnosus (Culturelle) 1 cap BID PO 10/16/20 09:00 10/25/20 20:14 Melatonin (Melatonin) 3 mg HS PO 10/16/20 21:00 10/25/20 20:15 Quetiapine Fumarate (SEROquel) 12.5 mg DAILY PO 10/19/20 09:00 10/25/20 08:12 I have reviewed the current psychotropics carefully including drug interactions. Risk benefit ratio favors no change other than as noted in my dictated progress note. 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
--- NOTE | 2020-10-26 07:14 | PDOC ---
Exam Note: Leonard Note: This note is a late entry for 10/24/2020 covers elements not covered in my initial note. Subjective: The patient was seen individually in the evening of 10/24/2020 with Gabby LEAL, discussed and reviewed the chart. The patient slept 5 hours previous night. He was somewhat agitated during showers previous night but has done well during the day today. He did receive Zyprexa last night. Otherwise remains confused, redirectable, smiling as I met with him individually in the dayroom. Review of Systems: No CV, , pulmonary, eye system symptoms on review. Mental Status Exam: The patient is oriented to himself. Insight and judgment, recent and remote memory, attention and concentration, fund of knowledge is poor consistent with his diagnoses. Laboratory Data: Reviewed. Impression: Major neurocognitive disorder Alzheimer vascular with delusion, depression, behavioral disturbance. Impulse control disorder unspecified. Anxiety disorder unspecified. Plan: Maintain rest of the psychotropics unchanged. Assessment: Vital Signs/I&O: Vital Signs Date Time Temp Pulse Resp B/P (MAP) Pulse Ox O2 Delivery O2 Flow Rate FiO2 10/26/20 05:48 97.2 86 18 133/73 (93) 96 10/23/20 06:00 Room Air I & O 10/25/20 10/25/20 10/26/20 15:00 23:00 07:00 Intake Total 480 ml 240 ml Balance 480 ml 240 ml Current Medications: Meds: Current Medications Medications (Trade) Dose Ordered Sig/Kiera Route PRN Reason Start Time Stop Time Status Last Admin Dose Admin Midazolam HCl (Versed) 5 mg 1X ONCE IM 10/09/20 23:00 10/09/20 23:07 DC 10/09/20 23:23 Lactated Ringer's 1,000 ml @ 1,000 mls/hr 1X ONCE IV 10/09/20 23:00 10/09/20 23:59 DC Levofloxacin (Levaquin) 750 mg 1X ONCE PO 10/10/20 01:00 10/10/20 01:01 DC 10/10/20 04:27 Acetaminophen (Tylenol) 650 mg PRN Q6HRS PRN PO MILD PAIN / TEMP > 100.3'F 10/10/20 05:00 Multi-Ingredient Ointment (Analgesic [place]) 1 gera PRN QID PRN TP MUSCLE PAIN 4/7/21 05:00 Al Hydroxide/Mg Hydroxide (Mylanta Plus Xs) 15 ml PRN AFTMEALHC PRN PO DYSPEPSIA 10/10/20 05:00 Magnesium Hydroxide (Milk Of Magnesia) 2,400 mg PRN QHS PRN PO CONSTIPATION 2ND CHOICE 10/10/20 05:00 Aspirin (Aspirin Enteric Coated) 81 mg DAILY08 PO 10/10/20 08:00 10/25/20 08:11 Atorvastatin Calcium (Lipitor) 10 mg QHS PO 10/10/20 21:00 10/25/20 20:15 Bisacodyl (Dulcolax Tab) 5 mg PRN DAILY PRN PO CONSTIPATION 1ST CHOICE 10/10/20 05:30 Buspirone HCl (Buspar) 5 mg BID PO 10/10/20 09:00 10/25/20 20:14 Calcium Polycarbophil (Fibercon) 1,250 mg DAILY PO 10/10/20 09:00 10/25/20 08:11 Citalopram Hydrobromide (CeleXA) 20 mg DAILY PO 10/10/20 09:00 10/25/20 08:11 Docusate Sodium (Colace) 100 mg PRN DAILY PRN PO HARD STOOLS 10/10/20 05:30 Meloxicam (Mobic) 15 mg HS PO 10/10/20 21:00 10/25/20 20:14 Memantine (Namenda) 5 mg DAILY PO 10/10/20 09:00 10/12/20 16:01 DC 10/12/20 08:05 Olanzapine (ZyPREXA ZYDIS) 2.5 mg PRN BID PRN PO ANXIETY / AGITATION 10/10/20 05:30 10/23/20 21:24 Polyethylene Glycol (miraLAX) 17 gm DAILYWSUP PO 10/10/20 17:00 10/24/20 08:56 Trazodone HCl (Desyrel) 50 mg PRN QHS PRN PO INSOMNIA 10/10/20 05:30 10/15/20 01:22 Doxylamine Succinate (Unisom) 25 mg QHS PO 10/10/20 21:00 10/16/20 17:38 DC 10/15/20 19:43 Multivitamins/ Calcium (Thera-M Plus) 1 tab QMWF@0900 PO 10/10/20 09:00 10/24/20 09:01 Pantoprazole Sodium (Protonix) 40 mg HS PO 10/10/20 21:00 10/25/20 20:15 Non-Formulary Medication ([Potassium Tablet] ) 99 mg DAILY PO 10/10/20 09:00 UNV Doxycycline Hyclate (Vibra-Tab) 100 mg BID PO 10/12/20 21:00 10/21/20 22:00 DC 10/21/20 20:13 Memantine (Namenda) 10 mg DAILY PO 10/13/20 09:00 10/25/20 08:11 Lactobacillus Rhamnosus (Culturelle) 1 cap BID PO 10/16/20 09:00 10/25/20 20:14 Melatonin (Melatonin) 3 mg HS PO 10/16/20 21:00 10/25/20 20:15 Quetiapine Fumarate (SEROquel) 12.5 mg DAILY PO 10/19/20 09:00 10/25/20 08:12 I have reviewed the current psychotropics carefully including drug interactions. Risk benefit ratio favors no change other than as noted in my dictated progress note. 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
--- NOTE | 2020-10-26 07:36 | PDOC ---
Exam Note: Leonard Note: This note is a late entry for 10/25/2020 covers elements not covered in my initial note. Subjective: The patient was reviewed in the morning of 10/25/2020 for a treatment team meeting with Guillermina Ellis, Daniela Osorio and Jackelyn (social studies department chair), Riya, activity therapy and Vickie RN, discussed and reviewed the chart. The patient slept 6-3/4 hours previous night. He is resistive to showers. He did attend 3 groups. At times answers some questions but quite confused. Review of Systems: No CV, , pulmonary, eye system symptoms on review. Mental Status Exam: The patient is oriented to himself. Insight and judgment, recent and remote memory, attention and concentration, fund of knowledge is poor consistent with his diagnoses. Laboratory Data: Reviewed. Impression: Major neurocognitive disorder Alzheimer vascular with delusion, depression, behavioral disturbance. Impulse control disorder unspecified. Anxiety disorder unspecified. Plan: Maintain rest of the psychotropics unchanged. Assessment: Vital Signs/I&O: Vital Signs Date Time Temp Pulse Resp B/P (MAP) Pulse Ox O2 Delivery O2 Flow Rate FiO2 10/26/20 05:48 97.2 86 18 133/73 (93) 96 10/23/20 06:00 Room Air I & O 10/25/20 10/25/20 10/26/20 15:00 23:00 07:00 Intake Total 480 ml 240 ml Balance 480 ml 240 ml Current Medications: Meds: Current Medications Medications (Trade) Dose Ordered Sig/Kiera Route PRN Reason Start Time Stop Time Status Last Admin Dose Admin Midazolam HCl (Versed) 5 mg 1X ONCE IM 10/09/20 23:00 10/09/20 23:07 DC 10/09/20 23:23 Lactated Ringer's 1,000 ml @ 1,000 mls/hr 1X ONCE IV 10/09/20 23:00 10/09/20 23:59 DC Levofloxacin (Levaquin) 750 mg 1X ONCE PO 10/10/20 01:00 10/10/20 01:01 DC 10/10/20 04:27 Acetaminophen (Tylenol) 650 mg PRN Q6HRS PRN PO MILD PAIN / TEMP > 100.3'F 10/10/20 05:00 Multi-Ingredient Ointment (Analgesic [place]) 1 gera PRN QID PRN TP MUSCLE PAIN 10/10/20 05:00 Al Hydroxide/Mg Hydroxide (Mylanta Plus Xs) 15 ml PRN AFTMEALHC PRN PO DYSPEPSIA 10/10/20 05:00 Magnesium Hydroxide (Milk Of Magnesia) 2,400 mg PRN QHS PRN PO CONSTIPATION 2ND CHOICE 10/10/20 05:00 Aspirin (Aspirin Enteric Coated) 81 mg DAILY08 PO 10/10/20 08:00 10/25/20 08:11 Atorvastatin Calcium (Lipitor) 10 mg QHS PO 10/10/20 21:00 10/25/20 20:15 Bisacodyl (Dulcolax Tab) 5 mg PRN DAILY PRN PO CONSTIPATION 1ST CHOICE 10/10/20 05:30 Buspirone HCl (Buspar) 5 mg BID PO 10/10/20 09:00 10/25/20 20:14 Calcium Polycarbophil (Fibercon) 1,250 mg DAILY PO 10/10/20 09:00 10/25/20 08:11 Citalopram Hydrobromide (CeleXA) 20 mg DAILY PO 10/10/20 09:00 10/25/20 08:11 Docusate Sodium (Colace) 100 mg PRN DAILY PRN PO HARD STOOLS 10/10/20 05:30 Meloxicam (Mobic) 15 mg HS PO 10/10/20 21:00 10/25/20 20:14 Memantine (Namenda) 5 mg DAILY PO 10/10/20 09:00 10/12/20 16:01 DC 10/12/20 08:05 Olanzapine (ZyPREXA ZYDIS) 2.5 mg PRN BID PRN PO ANXIETY / AGITATION 10/10/20 05:30 10/23/20 21:24 Polyethylene Glycol (miraLAX) 17 gm DAILYWSUP PO 10/10/20 17:00 10/24/20 08:56 Trazodone HCl (Desyrel) 50 mg PRN QHS PRN PO INSOMNIA 10/10/20 05:30 10/15/20 01:22 Doxylamine Succinate (Unisom) 25 mg QHS PO 10/10/20 21:00 10/16/20 17:38 DC 10/15/20 19:43 Multivitamins/ Calcium (Thera-M Plus) 1 tab QMWF@0900 PO 10/10/20 09:00 10/24/20 09:01 Pantoprazole Sodium (Protonix) 40 mg HS PO 10/10/20 21:00 10/25/20 20:15 Non-Formulary Medication ([Potassium Tablet] ) 99 mg DAILY PO 10/10/20 09:00 UNV Doxycycline Hyclate (Vibra-Tab) 100 mg BID PO 10/12/20 21:00 10/21/20 22:00 DC 10/21/20 20:13 Memantine (Namenda) 10 mg DAILY PO 10/13/20 09:00 10/25/20 08:11 Lactobacillus Rhamnosus (Culturelle) 1 cap BID PO 10/16/20 09:00 10/25/20 20:14 Melatonin (Melatonin) 3 mg HS PO 10/16/20 21:00 10/25/20 20:15 Quetiapine Fumarate (SEROquel) 12.5 mg DAILY PO 10/19/20 09:00 10/25/20 08:12 I have reviewed the current psychotropics carefully including drug interactions. Risk benefit ratio favors no change other than as noted in my dictated progress note. 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
[2020-10-26] MEDS: CALCIUM POLYCARBOPHIL 625 MG TABLET PO SCH (07:50)
[2020-10-26] MEDS: MULTIVITAMIN with MINERAL TABLET. PO SCH (07:50)
[2020-10-26] MEDS: busPIRone 5 MG TABLET. PO SCH (07:50)
[2020-10-26] MEDS: ASPIRIN ENTERIC COATED 81 MG TABLET.DR. PO SCH (07:50)
[2020-10-26] MEDS: QUEtiapine 25 MG TABLET. PO SCH (07:51)
[2020-10-26] MEDS: LACTOBACILLUS RHAMNOSUS GG 1 CAPSULE. PO SCH ×2 (07:51→20:43)
[2020-10-26] MEDS: MEMANTINE 10 MG TABLET. PO SCH (07:51)
[2020-10-26] MEDS: CITALOPRAM 20 MG TABLET. PO SCH (07:51)
[2020-10-26 15:31] VITALS: BP 143/82
[2020-10-26] MEDS: POLYETHYLENE GLYCOL 3350 17 GM PACKET. PO SCH (17:16)
[2020-10-26] MEDS: MELATONIN 3 MG TABLET PO SCH (20:43)
[2020-10-26] MEDS: MELOXICAM 15 MG TABLET. PO SCH (20:43)
[2020-10-26] MEDS: ATORVASTATIN CALCIUM 10 MG TABLET. PO SCH (20:43)
[2020-10-26] MEDS: PANTOPRAZOLE 40 MG TABLET. PO SCH (20:43)
[2020-10-26] MEDS: busPIRone 10 MG TABLET. PO SCH (20:43)
--- NOTE | 2020-10-26 22:01 | PDOC ---
Exam Note: Leonard Note: Please also refer to the separate dictated note~for this date of service dictated separately.~Patient seen individually. Discussed the patient with Nursing staff reviewed the chart.~Reviewed interim history and current functioning. Reviewed vital signs,~Labs/ Radiology~and current medications noted below. Continue current treatment with the changes noted in the dictated addendum note Assessment: Vital Signs/I&O: Vital Signs Date Time Temp Pulse Resp B/P (MAP) Pulse Ox O2 Delivery O2 Flow Rate FiO2 10/26/20 15:31 97.9 83 19 143/82 (102) 97 Room Air I & O 10/25/20 10/25/20 10/26/20 15:00 23:00 07:00 Intake Total 480 ml 240 ml Balance 480 ml 240 ml Current Medications: Meds: Current Medications Medications (Trade) Dose Ordered Sig/Kiera Route PRN Reason Start Time Stop Time Status Last Admin Dose Admin Midazolam HCl (Versed) 5 mg 1X ONCE IM 10/09/20 23:00 10/09/20 23:07 DC 10/09/20 23:23 Lactated Ringer's 1,000 ml @ 1,000 mls/hr 1X ONCE IV 10/09/20 23:00 10/09/20 23:59 DC Levofloxacin (Levaquin) 750 mg 1X ONCE PO 10/10/20 01:00 10/10/20 01:01 DC 10/10/20 04:27 Acetaminophen (Tylenol) 650 mg PRN Q6HRS PRN PO MILD PAIN / TEMP > 100.3'F 10/10/20 05:00 Multi-Ingredient Ointment (Analgesic [place]) 1 gera PRN QID PRN TP MUSCLE PAIN 10/10/20 05:00 Al Hydroxide/Mg Hydroxide (Mylanta Plus Xs) 15 ml PRN AFTMEALHC PRN PO DYSPEPSIA 10/10/20 05:00 Magnesium Hydroxide (Milk Of Magnesia) 2,400 mg PRN QHS PRN PO CONSTIPATION 2ND CHOICE 10/10/20 05:00 Aspirin (Aspirin Enteric Coated) 81 mg DAILY08 PO 10/10/20 08:00 10/26/20 07:50 Atorvastatin Calcium (Lipitor) 10 mg QHS PO 10/10/20 21:00 10/26/20 20:43 Bisacodyl (Dulcolax Tab) 5 mg PRN DAILY PRN PO CONSTIPATION 1ST CHOICE 10/10/20 05:30 Buspirone HCl (Buspar) 5 mg BID PO 10/10/20 09:00 10/26/20 17:54 DC 10/26/20 07:50 Calcium Polycarbophil (Fibercon) 1,250 mg DAILY PO 10/10/20 09:00 10/26/20 07:50 Citalopram Hydrobromide (CeleXA) 20 mg DAILY PO 10/10/20 09:00 10/26/20 07:51 Docusate Sodium (Colace) 100 mg PRN DAILY PRN PO HARD STOOLS 10/10/20 05:30 Meloxicam (Mobic) 15 mg HS PO 10/10/20 21:00 10/26/20 20:43 Memantine (Namenda) 5 mg DAILY PO 10/10/20 09:00 10/12/20 16:01 DC 10/12/20 08:05 Olanzapine (ZyPREXA ZYDIS) 2.5 mg PRN BID PRN PO ANXIETY / AGITATION 10/10/20 05:30 10/23/20 21:24 Polyethylene Glycol (miraLAX) 17 gm DAILYWSUP PO 10/10/20 17:00 10/26/20 17:16 Trazodone HCl (Desyrel) 50 mg PRN QHS PRN PO INSOMNIA 10/10/20 05:30 10/15/20 01:22 Doxylamine Succinate (Unisom) 25 mg QHS PO 10/10/20 21:00 10/16/20 17:38 DC 10/15/20 19:43 Multivitamins/ Calcium (Thera-M Plus) 1 tab QMWF@0900 PO 10/10/20 09:00 10/26/20 07:50 Pantoprazole Sodium (Protonix) 40 mg HS PO 10/10/20 21:00 10/26/20 20:43 Non-Formulary Medication ([Potassium Tablet] ) 99 mg DAILY PO 10/10/20 09:00 UNV Doxycycline Hyclate (Vibra-Tab) 100 mg BID PO 10/12/20 21:00 10/21/20 22:00 DC 10/21/20 20:13 Memantine (Namenda) 10 mg DAILY PO 10/13/20 09:00 10/26/20 07:51 Lactobacillus Rhamnosus (Culturelle) 1 cap BID PO 10/16/20 09:00 10/26/20 20:43 Melatonin (Melatonin) 3 mg HS PO 10/16/20 21:00 10/26/20 20:43 Quetiapine Fumarate (SEROquel) 12.5 mg DAILY PO 10/19/20 09:00 10/26/20 07:51 Buspirone HCl (Buspar) 10 mg BID PO 10/26/20 21:00 10/26/20 20:43 Current Medications Medications (Trade) Dose Ordered Sig/Kiera Route PRN Reason Start Time Stop Time Status Last Admin Dose Admin Buspirone HCl (Buspar) 10 mg BID PO 10/26/20 21:00 10/26/20 20:43 I have reviewed the current psychotropics carefully including drug interactions. Risk benefit ratio favors no change other than as noted in my dictated progress note. 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
[2020-10-27 06:29] VITALS: BP 149/77
[2020-10-27] MEDS: QUEtiapine 25 MG TABLET. PO SCH (08:02)
[2020-10-27] MEDS: busPIRone 10 MG TABLET. PO SCH ×2 (08:02→20:23)
[2020-10-27] MEDS: ASPIRIN ENTERIC COATED 81 MG TABLET.DR. PO SCH (08:02)
[2020-10-27] MEDS: LACTOBACILLUS RHAMNOSUS GG 1 CAPSULE. PO SCH ×2 (08:02→20:23)
[2020-10-27] MEDS: CITALOPRAM 20 MG TABLET. PO SCH (08:02)
[2020-10-27] MEDS: MEMANTINE 10 MG TABLET. PO SCH (08:02)
[2020-10-27] MEDS: CALCIUM POLYCARBOPHIL 625 MG TABLET PO SCH (08:03)
[2020-10-27 10:42] LABS: ALBUMIN 3.6 g/dL (3.4-5.0); ALBUMIN/GLOBULIN RATIO 1.3 (1.0-1.7); BASO % 1 % (0-3); CALCIUM 9.4 mg/dL (8.5-10.1); CREATININE 0.9 mg/dL (0.7-1.3); EOS # 0.1 x10^3/uL (0.0-0.7); EOS % 2 % (0-3); HEMATOCRIT 38.1 % (39.0-53.0); HEMOGLOBIN 12.7 g/dL (13.0-17.5); LYMPH # 0.7 x10^3/uL (1.0-4.8); LYMPH % 15 % (24-48); MEAN CORPUSCULAR HEMOGLOBIN 32 pg (25-35); MEAN CORPUSCULAR HGB CONC 34 g/dL (31-37); MEAN CORPUSCULAR VOLUME 95 fL (79-100); MONO # 0.3 x10^3/uL (0.0-1.1); MONO % 7 % (0-9); NEUT # 3.4 x10^3uL (1.8-7.7); NEUT % 75 % (31-73); PLATELET COUNT 145 x10^3/uL (140-400); POTASSIUM 4.2 mmol/L (3.5-5.1); RED BLOOD COUNT 4.01 x10^6/uL (4.30-5.70); RED CELL DISTRIBUTION WIDTH 13.7 % (11.5-14.5); TOTAL BILIRUBIN 0.5 mg/dL (0.2-1.0); TOTAL PROTEIN 6.3 g/dL (6.4-8.2); WHITE BLOOD COUNT 4.5 x10^3/uL (4.0-11.0)
[2020-10-27 15:45] VITALS: BP 109/66
[2020-10-27] MEDS: POLYETHYLENE GLYCOL 3350 17 GM PACKET. PO SCH (17:40)
[2020-10-27] MEDS: MELOXICAM 15 MG TABLET. PO SCH (20:23)
[2020-10-27] MEDS: MELATONIN 3 MG TABLET PO SCH (20:23)
[2020-10-27] MEDS: PANTOPRAZOLE 40 MG TABLET. PO SCH (20:23)
[2020-10-27] MEDS: ATORVASTATIN CALCIUM 10 MG TABLET. PO SCH (20:23)
--- NOTE | 2020-10-27 21:52 | PDOC ---
Exam Note: Leonard Note: Please also refer to the separate dictated note~for this date of service dictated separately.~Patient seen individually. Discussed the patient with Nursing staff reviewed the chart.~Reviewed interim history and current functioning. Reviewed vital signs,~Labs/ Radiology~and current medications noted below. Continue current treatment with the changes noted in the dictated addendum note Assessment: Vital Signs/I&O: Vital Signs Date Time Temp Pulse Resp B/P (MAP) Pulse Ox O2 Delivery O2 Flow Rate FiO2 10/27/20 15:45 97.5 65 20 109/66 (80) 99 10/26/20 15:31 Room Air I & O 10/26/20 10/26/20 10/27/20 15:00 23:00 07:00 Intake Total 460 ml 240 ml 120 ml Balance 460 ml 240 ml 120 ml Labs: Laboratory Tests Test 10/27/20 10:00 White Blood Count 4.5 x10^3/uL (4.0-11.0) Red Blood Count 4.01 x10^6/uL (4.30-5.70) L Hemoglobin 12.7 g/dL (13.0-17.5) L Hematocrit 38.1 % (39.0-53.0) L Mean Corpuscular Volume 95 fL (79-100) Mean Corpuscular Hemoglobin 32 pg (25-35) Mean Corpuscular Hemoglobin Concent 34 g/dL (31-37) Red Cell Distribution Width 13.7 % (11.5-14.5) Platelet Count 145 x10^3/uL (140-400) Neutrophils (%) (Auto) 75 % (31-73) H Lymphocytes (%) (Auto) 15 % (24-48) L Monocytes (%) (Auto) 7 % (0-9) Eosinophils (%) (Auto) 2 % (0-3) Basophils (%) (Auto) 1 % (0-3) Neutrophils # (Auto) 3.4 x10^3uL (1.8-7.7) Lymphocytes # (Auto) 0.7 x10^3/uL (1.0-4.8) L Monocytes # (Auto) 0.3 x10^3/uL (0.0-1.1) Eosinophils # (Auto) 0.1 x10^3/uL (0.0-0.7) Basophils # (Auto) 0.0 x10^3/uL (0.0-0.2) Sodium Level 148 mmol/L (136-145) H Potassium Level 4.2 mmol/L (3.5-5.1) Chloride Level 112 mmol/L (98-107) H Carbon Dioxide Level 30 mmol/L (21-32) Anion Gap 6 (6-14) Blood Urea Nitrogen 32 mg/dL (8-26) H Creatinine 0.9 mg/dL (0.7-1.3) Estimated GFR (Cockcroft-Gault) 81.0 BUN/Creatinine Ratio 36 (6-20) H Glucose Level 110 mg/dL (70-99) H Calcium Level 9.4 mg/dL (8.5-10.1) Total Bilirubin 0.5 mg/dL (0.2-1.0) Aspartate Amino Transferase (AST) 15 U/L (15-37) Alanine Aminotransferase (ALT) 25 U/L (16-63) Alkaline Phosphatase 78 U/L (46-116) Total Protein 6.3 g/dL (6.4-8.2) L Albumin 3.6 g/dL (3.4-5.0) Albumin/Globulin Ratio 1.3 (1.0-1.7) Current Medications: Meds: Laboratory Tests Test 10/27/20 10:00 White Blood Count 4.5 x10^3/uL Red Blood Count 4.01 x10^6/uL Hemoglobin 12.7 g/dL Hematocrit 38.1 % Mean Corpuscular Volume 95 fL Mean Corpuscular Hemoglobin 32 pg Mean Corpuscular Hemoglobin Concent 34 g/dL Red Cell Distribution Width 13.7 % Platelet Count 145 x10^3/uL Neutrophils (%) (Auto) 75 % Lymphocytes (%) (Auto) 15 % Monocytes (%) (Auto) 7 % Eosinophils (%) (Auto) 2 % Basophils (%) (Auto) 1 % Neutrophils # (Auto) 3.4 x10^3uL Lymphocytes # (Auto) 0.7 x10^3/uL Monocytes # (Auto) 0.3 x10^3/uL Eosinophils # (Auto) 0.1 x10^3/uL Basophils # (Auto) 0.0 x10^3/uL Sodium Level 148 mmol/L Potassium Level 4.2 mmol/L Chloride Level 112 mmol/L Carbon Dioxide Level 30 mmol/L Anion Gap 6 Blood Urea Nitrogen 32 mg/dL Creatinine 0.9 mg/dL Estimated GFR (Cockcroft-Gault) 81.0 BUN/Creatinine Ratio 36 Glucose Level 110 mg/dL Calcium Level 9.4 mg/dL Total Bilirubin 0.5 mg/dL Aspartate Amino Transf (AST/SGOT) 15 U/L Alanine Aminotransferase (ALT/SGPT) 25 U/L Alkaline Phosphatase 78 U/L Total Protein 6.3 g/dL Albumin 3.6 g/dL Albumin/Globulin Ratio 1.3 Current Medications Medications (Trade) Dose Ordered Sig/Kiera Route PRN Reason Start Time Stop Time Status Last Admin Dose Admin Midazolam HCl (Versed) 5 mg 1X ONCE IM 10/09/20 23:00 10/09/20 23:07 DC 10/09/20 23:23 Lactated Ringer's 1,000 ml @ 1,000 mls/hr 1X ONCE IV 10/09/20 23:00 10/09/20 23:59 DC Levofloxacin (Levaquin) 750 mg 1X ONCE PO 10/10/20 01:00 10/10/20 01:01 DC 10/10/20 04:27 Acetaminophen (Tylenol) 650 mg PRN Q6HRS PRN PO MILD PAIN / TEMP > 100.3'F 10/10/20 05:00 Multi-Ingredient Ointment (Analgesic [place]) 1 gera PRN QID PRN TP MUSCLE PAIN 10/10/20 05:00 Al Hydroxide/Mg Hydroxide (Mylanta Plus Xs) 15 ml PRN AFTMEALHC PRN PO DYSPEPSIA 10/10/20 05:00 Magnesium Hydroxide (Milk Of Magnesia) 2,400 mg PRN QHS PRN PO CONSTIPATION 2ND CHOICE 10/10/20 05:00 Aspirin (Aspirin Enteric Coated) 81 mg DAILY08 PO 10/10/20 08:00 10/27/20 08:02 Atorvastatin Calcium (Lipitor) 10 mg QHS PO 10/10/20 21:00 10/27/20 20:23 Bisacodyl (Dulcolax Tab) 5 mg PRN DAILY PRN PO CONSTIPATION 1ST CHOICE 10/10/20 05:30 Buspirone HCl (Buspar) 5 mg BID PO 10/10/20 09:00 10/26/20 17:54 DC 10/26/20 07:50 Calcium Polycarbophil (Fibercon) 1,250 mg DAILY PO 10/10/20 09:00 10/27/20 08:03 Citalopram Hydrobromide (CeleXA) 20 mg DAILY PO 10/10/20 09:00 10/27/20 08:02 Docusate Sodium (Colace) 100 mg PRN DAILY PRN PO HARD STOOLS 10/10/20 05:30 Meloxicam (Mobic) 15 mg HS PO 10/10/20 21:00 10/27/20 20:23 Memantine (Namenda) 5 mg DAILY PO 10/10/20 09:00 10/12/20 16:01 DC 10/12/20 08:05 Olanzapine (ZyPREXA ZYDIS) 2.5 mg PRN BID PRN PO ANXIETY / AGITATION 10/10/20 05:30 10/23/20 21:24 Polyethylene Glycol (miraLAX) 17 gm DAILYWSUP PO 10/10/20 17:00 10/27/20 17:40 Trazodone HCl (Desyrel) 50 mg PRN QHS PRN PO INSOMNIA 10/10/20 05:30 10/15/20 01:22 Doxylamine Succinate (Unisom) 25 mg QHS PO 10/10/20 21:00 10/16/20 17:38 DC 10/15/20 19:43 Multivitamins/ Calcium (Thera-M Plus) 1 tab QMWF@0900 PO 10/10/20 09:00 10/26/20 07:50 Pantoprazole Sodium (Protonix) 40 mg HS PO 10/10/20 21:00 10/27/20 20:23 Non-Formulary Medication ([Potassium Tablet] ) 99 mg DAILY PO 10/10/20 09:00 UNV Doxycycline Hyclate (Vibra-Tab) 100 mg BID PO 10/12/20 21:00 10/21/20 22:00 DC 10/21/20 20:13 Memantine (Namenda) 10 mg DAILY PO 10/13/20 09:00 10/27/20 08:02 Lactobacillus Rhamnosus (Culturelle) 1 cap BID PO 10/16/20 09:00 10/27/20 20:23 Melatonin (Melatonin) 3 mg HS PO 10/16/20 21:00 10/27/20 20:23 Quetiapine Fumarate (SEROquel) 12.5 mg DAILY PO 10/19/20 09:00 10/27/20 08:02 Buspirone HCl (Buspar) 10 mg BID PO 10/26/20 21:00 10/27/20 20:23 I have reviewed the current psychotropics carefully including drug interactions. Risk benefit ratio favors no change other than as noted in my dictated progress note. 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
[2020-10-28 06:11] VITALS: BP 116/67
[2020-10-28] MEDS: CALCIUM POLYCARBOPHIL 625 MG TABLET PO SCH (08:40)
[2020-10-28] MEDS: ASPIRIN ENTERIC COATED 81 MG TABLET.DR. PO SCH (08:40)
[2020-10-28] MEDS: MEMANTINE 10 MG TABLET. PO SCH (08:40)
[2020-10-28] MEDS: CITALOPRAM 20 MG TABLET. PO SCH (08:40)
[2020-10-28] MEDS: QUEtiapine 25 MG TABLET. PO SCH (08:40)
[2020-10-28] MEDS: busPIRone 10 MG TABLET. PO SCH ×2 (08:40→20:29)
[2020-10-28] MEDS: LACTOBACILLUS RHAMNOSUS GG 1 CAPSULE. PO SCH ×2 (08:40→20:29)
[2020-10-28 15:50] VITALS: BP 102/62
[2020-10-28] MEDS: POLYETHYLENE GLYCOL 3350 17 GM PACKET. PO SCH (17:03)
[2020-10-28] MEDS: MELATONIN 3 MG TABLET PO SCH (20:29)
[2020-10-28] MEDS: ATORVASTATIN CALCIUM 10 MG TABLET. PO SCH (20:29)
[2020-10-28] MEDS: PANTOPRAZOLE 40 MG TABLET. PO SCH (20:29)
[2020-10-28] MEDS: MELOXICAM 15 MG TABLET. PO SCH (20:29)
--- NOTE | 2020-10-28 22:01 | PDOC ---
Exam Note: Leonard Note: Please also refer to the separate dictated note~for this date of service dictated separately.~Patient seen individually. Discussed the patient with Nursing staff reviewed the chart.~Reviewed interim history and current functioning. Reviewed vital signs,~Labs/ Radiology~and current medications noted below. Continue current treatment with the changes noted in the dictated addendum note Assessment: Vital Signs/I&O: Vital Signs Date Time Temp Pulse Resp B/P (MAP) Pulse Ox O2 Delivery O2 Flow Rate FiO2 10/28/20 15:50 97.6 68 20 102/62 (75) 97 10/26/20 15:31 Room Air I & O 10/27/20 10/27/20 10/28/20 15:00 23:00 07:00 Intake Total 600 ml 600 ml Balance 600 ml 600 ml Current Medications: Meds: Current Medications Medications (Trade) Dose Ordered Sig/Kiera Route PRN Reason Start Time Stop Time Status Last Admin Dose Admin Midazolam HCl (Versed) 5 mg 1X ONCE IM 10/09/20 23:00 10/09/20 23:07 DC 10/09/20 23:23 Lactated Ringer's 1,000 ml @ 1,000 mls/hr 1X ONCE IV 10/09/20 23:00 10/09/20 23:59 DC Levofloxacin (Levaquin) 750 mg 1X ONCE PO 10/10/20 01:00 10/10/20 01:01 DC 10/10/20 04:27 Acetaminophen (Tylenol) 650 mg PRN Q6HRS PRN PO MILD PAIN / TEMP > 100.3'F 10/10/20 05:00 Multi-Ingredient Ointment (Analgesic [place]) 1 gera PRN QID PRN TP MUSCLE PAIN 10/10/20 05:00 Al Hydroxide/Mg Hydroxide (Mylanta Plus Xs) 15 ml PRN AFTMEALHC PRN PO DYSPEPSIA 10/10/20 05:00 Magnesium Hydroxide (Milk Of Magnesia) 2,400 mg PRN QHS PRN PO CONSTIPATION 2ND CHOICE 10/10/20 05:00 Aspirin (Aspirin Enteric Coated) 81 mg DAILY08 PO 10/10/20 08:00 10/28/20 08:40 Atorvastatin Calcium (Lipitor) 10 mg QHS PO 10/10/20 21:00 10/28/20 20:29 Bisacodyl (Dulcolax Tab) 5 mg PRN DAILY PRN PO CONSTIPATION 1ST CHOICE 10/10/20 05:30 Buspirone HCl (Buspar) 5 mg BID PO 10/10/20 09:00 10/26/20 17:54 DC 10/26/20 07:50 Calcium Polycarbophil (Fibercon) 1,250 mg DAILY PO 10/10/20 09:00 10/28/20 08:40 Citalopram Hydrobromide (CeleXA) 20 mg DAILY PO 10/10/20 09:00 10/28/20 08:40 Docusate Sodium (Colace) 100 mg PRN DAILY PRN PO HARD STOOLS 10/10/20 05:30 Meloxicam (Mobic) 15 mg HS PO 10/10/20 21:00 10/28/20 20:29 Memantine (Namenda) 5 mg DAILY PO 10/10/20 09:00 10/12/20 16:01 DC 10/12/20 08:05 Olanzapine (ZyPREXA ZYDIS) 2.5 mg PRN BID PRN PO ANXIETY / AGITATION 10/10/20 05:30 10/23/20 21:24 Polyethylene Glycol (miraLAX) 17 gm DAILYWSUP PO 10/10/20 17:00 10/28/20 17:03 Trazodone HCl (Desyrel) 50 mg PRN QHS PRN PO INSOMNIA 10/10/20 05:30 10/15/20 01:22 Doxylamine Succinate (Unisom) 25 mg QHS PO 10/10/20 21:00 10/16/20 17:38 DC 10/15/20 19:43 Multivitamins/ Calcium (Thera-M Plus) 1 tab QMWF@0900 PO 10/10/20 09:00 10/26/20 07:50 Pantoprazole Sodium (Protonix) 40 mg HS PO 10/10/20 21:00 10/28/20 20:29 Non-Formulary Medication ([Potassium Tablet] ) 99 mg DAILY PO 10/10/20 09:00 UNV Doxycycline Hyclate (Vibra-Tab) 100 mg BID PO 10/12/20 21:00 10/21/20 22:00 DC 10/21/20 20:13 Memantine (Namenda) 10 mg DAILY PO 10/13/20 09:00 10/28/20 08:40 Lactobacillus Rhamnosus (Culturelle) 1 cap BID PO 10/16/20 09:00 10/28/20 20:29 Melatonin (Melatonin) 3 mg HS PO 10/16/20 21:00 10/28/20 20:29 Quetiapine Fumarate (SEROquel) 12.5 mg DAILY PO 10/19/20 09:00 10/28/20 08:40 Buspirone HCl (Buspar) 10 mg BID PO 10/26/20 21:00 10/28/20 20:29 I have reviewed the current psychotropics carefully including drug interactions. Risk benefit ratio favors no change other than as noted in my dictated progress note. Diagnosis: Problems: (1) Impulse control disorder, unspecified (2) Anxiety disorder, unspecified (3) Dementia of the Alzheimer's type with early onset with behavioral disturbance (4) Major neurocognitive disorder (5) Dementia, vascular, with depression (6) Dementia, vascular, with delusions (7) Dementia in Alzheimer's disease with depression (8) Dementia in Alzheimer's disease with delusions CHAGO CORONA MD Oct 28, 2020 22:01
--- NOTE | 2020-10-29 06:24 | PDOC ---
Exam Note: Leonard Note: This note is a late entry for 10/26/2020 covers elements not covered in my initial note. Subjective: The patient was seen individually in the evening of 10/26/2020 with Gabby LEAL, discussed and reviewed the chart. The patient slept 6 hours previous night. He became somewhat anxious, restless, agitated during showers previous evening but this is typical for him. Rest of the time he remains confused but not aggressive. He has been wandering into other patients rooms but redirects. Review of Systems: No CV, , pulmonary, eye system symptoms on review. Mental Status Exam: The patient is oriented to himself. Insight and judgment, recent and remote memory, attention and concentration, fund of knowledge is poor consistent with his diagnoses. Laboratory Data: Reviewed. Impression: Major neurocognitive disorder Alzheimer vascular with delusion, depression, behavioral disturbance. Impulse control disorder unspecified. Anxiety disorder unspecified. Plan: Given his ongoing anxiety, we will increase BuSpar from 5 mg b.i.d. to 10 mg b.i.d Continue rest unchanged. Assessment: Vital Signs/I&O: Vital Signs Date Time Temp Pulse Resp B/P (MAP) Pulse Ox O2 Delivery O2 Flow Rate FiO2 10/28/20 15:50 97.6 68 20 102/62 (75) 97 10/26/20 15:31 Room Air I & O 10/28/20 10/28/20 10/29/20 15:00 23:00 07:00 Intake Total 720 ml 360 ml Balance 720 ml 360 ml Current Medications: Meds: Current Medications Medications (Trade) Dose Ordered Sig/Kiera Route PRN Reason Start Time Stop Time Status Last Admin Dose Admin Midazolam HCl (Versed) 5 mg 1X ONCE IM 10/09/20 23:00 10/09/20 23:07 DC 10/09/20 23:23 Lactated Ringer's 1,000 ml @ 1,000 mls/hr 1X ONCE IV 10/09/20 23:00 10/09/20 23:59 DC Levofloxacin (Levaquin) 750 mg 1X ONCE PO 10/10/20 01:00 10/10/20 01:01 DC 10/10/20 04:27 Acetaminophen (Tylenol) 650 mg PRN Q6HRS PRN PO MILD PAIN / TEMP > 100.3'F 10/10/20 05:00 Multi-Ingredient Ointment (Analgesic [place]) 1 gera PRN QID PRN TP MUSCLE PAIN 10/10/20 05:00 Al Hydroxide/Mg Hydroxide (Mylanta Plus Xs) 15 ml PRN AFTMEALHC PRN PO DYSPEPSIA 10/10/20 05:00 Magnesium Hydroxide (Milk Of Magnesia) 2,400 mg PRN QHS PRN PO CONSTIPATION 2ND CHOICE 10/10/20 05:00 Aspirin (Aspirin Enteric Coated) 81 mg DAILY08 PO 10/10/20 08:00 10/28/20 08:40 Atorvastatin Calcium (Lipitor) 10 mg QHS PO 10/10/20 21:00 10/28/20 20:29 Bisacodyl (Dulcolax Tab) 5 mg PRN DAILY PRN PO CONSTIPATION 1ST CHOICE 10/10/20 05:30 Buspirone HCl (Buspar) 5 mg BID PO 10/10/20 09:00 10/26/20 17:54 DC 10/26/20 07:50 Calcium Polycarbophil (Fibercon) 1,250 mg DAILY PO 10/10/20 09:00 10/28/20 08:40 Citalopram Hydrobromide (CeleXA) 20 mg DAILY PO 10/10/20 09:00 10/28/20 08:40 Docusate Sodium (Colace) 100 mg PRN DAILY PRN PO HARD STOOLS 10/10/20 05:30 Meloxicam (Mobic) 15 mg HS PO 10/10/20 21:00 10/28/20 20:29 Memantine (Namenda) 5 mg DAILY PO 10/10/20 09:00 10/12/20 16:01 DC 10/12/20 08:05 Olanzapine (ZyPREXA ZYDIS) 2.5 mg PRN BID PRN PO ANXIETY / AGITATION 10/10/20 05:30 10/23/20 21:24 Polyethylene Glycol (miraLAX) 17 gm DAILYWSUP PO 10/10/20 17:00 10/28/20 17:03 Trazodone HCl (Desyrel) 50 mg PRN QHS PRN PO INSOMNIA 10/10/20 05:30 10/15/20 01:22 Doxylamine Succinate (Unisom) 25 mg QHS PO 10/10/20 21:00 10/16/20 17:38 DC 10/15/20 19:43 Multivitamins/ Calcium (Thera-M Plus) 1 tab QMWF@0900 PO 10/10/20 09:00 10/26/20 07:50 Pantoprazole Sodium (Protonix) 40 mg HS PO 10/10/20 21:00 10/28/20 20:29 Non-Formulary Medication ([Potassium Tablet] ) 99 mg DAILY PO 10/10/20 09:00 UNV Doxycycline Hyclate (Vibra-Tab) 100 mg BID PO 10/12/20 21:00 10/21/20 22:00 DC 10/21/20 20:13 Memantine (Namenda) 10 mg DAILY PO 10/13/20 09:00 10/28/20 08:40 Lactobacillus Rhamnosus (Culturelle) 1 cap BID PO 10/16/20 09:00 10/28/20 20:29 Melatonin (Melatonin) 3 mg HS PO 10/16/20 21:00 10/28/20 20:29 Quetiapine Fumarate (SEROquel) 12.5 mg DAILY PO 10/19/20 09:00 10/28/20 08:40 Buspirone HCl (Buspar) 10 mg BID PO 10/26/20 21:00 10/28/20 20:29 I have reviewed the current psychotropics carefully including drug interactions. Risk benefit ratio favors no change other than as noted in my dictated progress note. 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
[2020-10-29 06:27] VITALS: BP 104/62
--- NOTE | 2020-10-29 07:06 | PDOC ---
Exam Note: Leonard Note: This note is a late entry for 10/27/2020 covers elements not covered in my initial note. Subjective: The patient was seen individually in the evening of 10/27/2020 with Ryan LEAL, discussed and reviewed the chart. The patient slept 7-1/2 hours previous night. He remains confused, wandering into other patients rooms. Review of Systems: No CV, , pulmonary, eye system symptoms on review. Mental Status Exam: The patient is oriented to himself. Insight and judgment, recent and remote memory, attention and concentration, fund of knowledge is poor consistent with his diagnoses. Laboratory Data: Reviewed. Impression: Major neurocognitive disorder Alzheimer vascular with delusion, depression, behavioral disturbance. Impulse control disorder unspecified. Anxiety disorder unspecified. Plan: Maintain rest of the psychotropics unchanged. Assessment: Vital Signs/I&O: Vital Signs Date Time Temp Pulse Resp B/P (MAP) Pulse Ox O2 Delivery O2 Flow Rate FiO2 10/29/20 06:27 97.9 90 18 104/62 (76) 98 10/26/20 15:31 Room Air I & O 10/28/20 10/28/20 10/29/20 15:00 23:00 07:00 Intake Total 720 ml 360 ml Balance 720 ml 360 ml Current Medications: Meds: Current Medications Medications (Trade) Dose Ordered Sig/Kiera Route PRN Reason Start Time Stop Time Status Last Admin Dose Admin Midazolam HCl (Versed) 5 mg 1X ONCE IM 10/09/20 23:00 10/09/20 23:07 DC 10/09/20 23:23 Lactated Ringer's 1,000 ml @ 1,000 mls/hr 1X ONCE IV 10/09/20 23:00 10/09/20 23:59 DC Levofloxacin (Levaquin) 750 mg 1X ONCE PO 10/10/20 01:00 10/10/20 01:01 DC 10/10/20 04:27 Acetaminophen (Tylenol) 650 mg PRN Q6HRS PRN PO MILD PAIN / TEMP > 100.3'F 10/10/20 05:00 Multi-Ingredient Ointment (Analgesic [place]) 1 gera PRN QID PRN TP MUSCLE PAIN 10/10/20 05:00 Al Hydroxide/Mg Hydroxide (Mylanta Plus Xs) 15 ml PRN AFTMEALHC PRN PO DYSPEPSIA 4/7/21 05:00 Magnesium Hydroxide (Milk Of Magnesia) 2,400 mg PRN QHS PRN PO CONSTIPATION 2ND CHOICE 10/10/20 05:00 Aspirin (Aspirin Enteric Coated) 81 mg DAILY08 PO 10/10/20 08:00 10/28/20 08:40 Atorvastatin Calcium (Lipitor) 10 mg QHS PO 10/10/20 21:00 10/28/20 20:29 Bisacodyl (Dulcolax Tab) 5 mg PRN DAILY PRN PO CONSTIPATION 1ST CHOICE 10/10/20 05:30 Buspirone HCl (Buspar) 5 mg BID PO 10/10/20 09:00 10/26/20 17:54 DC 10/26/20 07:50 Calcium Polycarbophil (Fibercon) 1,250 mg DAILY PO 10/10/20 09:00 10/28/20 08:40 Citalopram Hydrobromide (CeleXA) 20 mg DAILY PO 10/10/20 09:00 10/28/20 08:40 Docusate Sodium (Colace) 100 mg PRN DAILY PRN PO HARD STOOLS 10/10/20 05:30 Meloxicam (Mobic) 15 mg HS PO 10/10/20 21:00 10/28/20 20:29 Memantine (Namenda) 5 mg DAILY PO 10/10/20 09:00 10/12/20 16:01 DC 10/12/20 08:05 Olanzapine (ZyPREXA ZYDIS) 2.5 mg PRN BID PRN PO ANXIETY / AGITATION 10/10/20 05:30 10/23/20 21:24 Polyethylene Glycol (miraLAX) 17 gm DAILYWSUP PO 10/10/20 17:00 10/28/20 17:03 Trazodone HCl (Desyrel) 50 mg PRN QHS PRN PO INSOMNIA 10/10/20 05:30 10/15/20 01:22 Doxylamine Succinate (Unisom) 25 mg QHS PO 10/10/20 21:00 10/16/20 17:38 DC 10/15/20 19:43 Multivitamins/ Calcium (Thera-M Plus) 1 tab QMWF@0900 PO 10/10/20 09:00 10/26/20 07:50 Pantoprazole Sodium (Protonix) 40 mg HS PO 10/10/20 21:00 10/28/20 20:29 Non-Formulary Medication ([Potassium Tablet] ) 99 mg DAILY PO 10/10/20 09:00 UNV Doxycycline Hyclate (Vibra-Tab) 100 mg BID PO 10/12/20 21:00 10/21/20 22:00 DC 10/21/20 20:13 Memantine (Namenda) 10 mg DAILY PO 10/13/20 09:00 10/28/20 08:40 Lactobacillus Rhamnosus (Culturelle) 1 cap BID PO 10/16/20 09:00 10/28/20 20:29 Melatonin (Melatonin) 3 mg HS PO 10/16/20 21:00 10/28/20 20:29 Quetiapine Fumarate (SEROquel) 12.5 mg DAILY PO 10/19/20 09:00 10/28/20 08:40 Buspirone HCl (Buspar) 10 mg BID PO 10/26/20 21:00 10/28/20 20:29 I have reviewed the current psychotropics carefully including drug interactions. Risk benefit ratio favors no change other than as noted in my dictated progress note. 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
[2020-10-29] MEDS: MEMANTINE 10 MG TABLET. PO SCH (07:56)
[2020-10-29] MEDS: LACTOBACILLUS RHAMNOSUS GG 1 CAPSULE. PO SCH ×2 (07:56→20:27)
[2020-10-29] MEDS: CITALOPRAM 20 MG TABLET. PO SCH (07:56)
[2020-10-29] MEDS: ASPIRIN ENTERIC COATED 81 MG TABLET.DR. PO SCH (07:57)
[2020-10-29] MEDS: MULTIVITAMIN with MINERAL TABLET. PO SCH (07:57)
[2020-10-29] MEDS: CALCIUM POLYCARBOPHIL 625 MG TABLET PO SCH (07:57)
[2020-10-29] MEDS: QUEtiapine 25 MG TABLET. PO SCH (07:57)
--- NOTE | 2020-10-29 07:57 | PDOC ---
Exam Note: Leonard Note: This note is a late entry for 10/28/2020 covers elements not covered in my initial note. Subjective: The patient was seen individually in the evening of 10/28/2020 with Ryan LEAL, discussed and reviewed the chart. The patient slept 4-3/4 hours previous night. He remains confused, but has had a better day per nursing report. Review of Systems: No CV, , pulmonary, eye system symptoms on review. Mental Status Exam: The patient is oriented to himself. I met with him in the dayroom. Insight and judgment, recent and remote memory, attention and concentration, fund of knowledge is poor consistent with his diagnoses. Laboratory Data: Reviewed. Impression: Major neurocognitive disorder Alzheimer vascular with delusion, depression, behavioral disturbance. Impulse control disorder unspecified. Anxiety disorder unspecified. Plan: Maintain rest of the psychotropics unchanged. Assessment: Vital Signs/I&O: Vital Signs Date Time Temp Pulse Resp B/P (MAP) Pulse Ox O2 Delivery O2 Flow Rate FiO2 10/29/20 06:27 97.9 90 18 104/62 (76) 98 10/26/20 15:31 Room Air I & O 10/28/20 10/28/20 10/29/20 15:00 23:00 07:00 Intake Total 720 ml 360 ml Balance 720 ml 360 ml Current Medications: Meds: Current Medications Medications (Trade) Dose Ordered Sig/Kiera Route PRN Reason Start Time Stop Time Status Last Admin Dose Admin Midazolam HCl (Versed) 5 mg 1X ONCE IM 10/09/20 23:00 10/09/20 23:07 DC 10/09/20 23:23 Lactated Ringer's 1,000 ml @ 1,000 mls/hr 1X ONCE IV 10/09/20 23:00 10/09/20 23:59 DC Levofloxacin (Levaquin) 750 mg 1X ONCE PO 10/10/20 01:00 10/10/20 01:01 DC 10/10/20 04:27 Acetaminophen (Tylenol) 650 mg PRN Q6HRS PRN PO MILD PAIN / TEMP > 100.3'F 10/10/20 05:00 Multi-Ingredient Ointment (Analgesic [place]) 1 gera PRN QID PRN TP MUSCLE PAIN 10/10/20 05:00 Al Hydroxide/Mg Hydroxide (Mylanta Plus Xs) 15 ml PRN AFTMEALHC PRN PO DYSPEPSIA 10/10/20 05:00 Magnesium Hydroxide (Milk Of Magnesia) 2,400 mg PRN QHS PRN PO CONSTIPATION 2ND CHOICE 10/10/20 05:00 Aspirin (Aspirin Enteric Coated) 81 mg DAILY08 PO 10/10/20 08:00 10/28/20 08:40 Atorvastatin Calcium (Lipitor) 10 mg QHS PO 10/10/20 21:00 10/28/20 20:29 Bisacodyl (Dulcolax Tab) 5 mg PRN DAILY PRN PO CONSTIPATION 1ST CHOICE 10/10/20 05:30 Buspirone HCl (Buspar) 5 mg BID PO 10/10/20 09:00 10/26/20 17:54 DC 10/26/20 07:50 Calcium Polycarbophil (Fibercon) 1,250 mg DAILY PO 10/10/20 09:00 10/28/20 08:40 Citalopram Hydrobromide (CeleXA) 20 mg DAILY PO 10/10/20 09:00 10/28/20 08:40 Docusate Sodium (Colace) 100 mg PRN DAILY PRN PO HARD STOOLS 10/10/20 05:30 Meloxicam (Mobic) 15 mg HS PO 10/10/20 21:00 10/28/20 20:29 Memantine (Namenda) 5 mg DAILY PO 10/10/20 09:00 10/12/20 16:01 DC 10/12/20 08:05 Olanzapine (ZyPREXA ZYDIS) 2.5 mg PRN BID PRN PO ANXIETY / AGITATION 10/10/20 05:30 10/23/20 21:24 Polyethylene Glycol (miraLAX) 17 gm DAILYWSUP PO 10/10/20 17:00 10/28/20 17:03 Trazodone HCl (Desyrel) 50 mg PRN QHS PRN PO INSOMNIA 10/10/20 05:30 10/15/20 01:22 Doxylamine Succinate (Unisom) 25 mg QHS PO 10/10/20 21:00 10/16/20 17:38 DC 10/15/20 19:43 Multivitamins/ Calcium (Thera-M Plus) 1 tab QMWF@0900 PO 10/10/20 09:00 10/26/20 07:50 Pantoprazole Sodium (Protonix) 40 mg HS PO 10/10/20 21:00 10/28/20 20:29 Non-Formulary Medication ([Potassium Tablet] ) 99 mg DAILY PO 10/10/20 09:00 UNV Doxycycline Hyclate (Vibra-Tab) 100 mg BID PO 10/12/20 21:00 10/21/20 22:00 DC 10/21/20 20:13 Memantine (Namenda) 10 mg DAILY PO 10/13/20 09:00 10/28/20 08:40 Lactobacillus Rhamnosus (Culturelle) 1 cap BID PO 10/16/20 09:00 10/28/20 20:29 Melatonin (Melatonin) 3 mg HS PO 10/16/20 21:00 10/28/20 20:29 Quetiapine Fumarate (SEROquel) 12.5 mg DAILY PO 10/19/20 09:00 10/28/20 08:40 Buspirone HCl (Buspar) 10 mg BID PO 10/26/20 21:00 10/28/20 20:29 I have reviewed the current psychotropics carefully including drug interactions. Risk benefit ratio favors no change other than as noted in my dictated progress note. 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
[2020-10-29] MEDS: busPIRone 10 MG TABLET. PO SCH ×2 (09:00→20:27)
[2020-10-29 15:49] VITALS: BP 123/62
[2020-10-29] MEDS: POLYETHYLENE GLYCOL 3350 17 GM PACKET. PO SCH (16:58)
[2020-10-29] MEDS: PANTOPRAZOLE 40 MG TABLET. PO SCH (20:26)
[2020-10-29] MEDS: MELATONIN 3 MG TABLET PO SCH (20:27)
[2020-10-29] MEDS: MELOXICAM 15 MG TABLET. PO SCH (20:27)
[2020-10-29] MEDS: ATORVASTATIN CALCIUM 10 MG TABLET. PO SCH (20:27)
--- NOTE | 2020-10-29 21:55 | PDOC ---
Exam Note: Leonard Note: Please also refer to the separate dictated note~for this date of service dictated separately.~Patient seen individually. Discussed the patient with Nursing staff reviewed the chart.~Reviewed interim history and current functioning. Reviewed vital signs,~Labs/ Radiology~and current medications noted below. Continue current treatment with the changes noted in the dictated addendum note Assessment: Vital Signs/I&O: Vital Signs Date Time Temp Pulse Resp B/P (MAP) Pulse Ox O2 Delivery O2 Flow Rate FiO2 10/29/20 15:49 97.5 68 18 123/62 (82) 98 Room Air I & O 10/28/20 10/28/20 10/29/20 15:00 23:00 07:00 Intake Total 720 ml 360 ml Balance 720 ml 360 ml Current Medications: Meds: Current Medications Medications (Trade) Dose Ordered Sig/Kiera Route PRN Reason Start Time Stop Time Status Last Admin Dose Admin Midazolam HCl (Versed) 5 mg 1X ONCE IM 10/09/20 23:00 10/09/20 23:07 DC 10/09/20 23:23 Lactated Ringer's 1,000 ml @ 1,000 mls/hr 1X ONCE IV 10/09/20 23:00 10/09/20 23:59 DC Levofloxacin (Levaquin) 750 mg 1X ONCE PO 10/10/20 01:00 10/10/20 01:01 DC 10/10/20 04:27 Acetaminophen (Tylenol) 650 mg PRN Q6HRS PRN PO MILD PAIN / TEMP > 100.3'F 10/10/20 05:00 Multi-Ingredient Ointment (Analgesic [place]) 1 gera PRN QID PRN TP MUSCLE PAIN 10/10/20 05:00 Al Hydroxide/Mg Hydroxide (Mylanta Plus Xs) 15 ml PRN AFTMEALHC PRN PO DYSPEPSIA 10/10/20 05:00 Magnesium Hydroxide (Milk Of Magnesia) 2,400 mg PRN QHS PRN PO CONSTIPATION 2ND CHOICE 10/10/20 05:00 Aspirin (Aspirin Enteric Coated) 81 mg DAILY08 PO 10/10/20 08:00 10/29/20 07:57 Atorvastatin Calcium (Lipitor) 10 mg QHS PO 10/10/20 21:00 10/29/20 20:27 Bisacodyl (Dulcolax Tab) 5 mg PRN DAILY PRN PO CONSTIPATION 1ST CHOICE 10/10/20 05:30 Buspirone HCl (Buspar) 5 mg BID PO 10/10/20 09:00 10/26/20 17:54 DC 10/26/20 07:50 Calcium Polycarbophil (Fibercon) 1,250 mg DAILY PO 10/10/20 09:00 10/29/20 07:57 Citalopram Hydrobromide (CeleXA) 20 mg DAILY PO 10/10/20 09:00 10/29/20 07:56 Docusate Sodium (Colace) 100 mg PRN DAILY PRN PO HARD STOOLS 10/10/20 05:30 Meloxicam (Mobic) 15 mg HS PO 10/10/20 21:00 10/29/20 20:27 Memantine (Namenda) 5 mg DAILY PO 10/10/20 09:00 10/12/20 16:01 DC 10/12/20 08:05 Olanzapine (ZyPREXA ZYDIS) 2.5 mg PRN BID PRN PO ANXIETY / AGITATION 10/10/20 05:30 10/23/20 21:24 Polyethylene Glycol (miraLAX) 17 gm DAILYWSUP PO 10/10/20 17:00 10/29/20 16:58 Trazodone HCl (Desyrel) 50 mg PRN QHS PRN PO INSOMNIA 10/10/20 05:30 10/15/20 01:22 Doxylamine Succinate (Unisom) 25 mg QHS PO 10/10/20 21:00 10/16/20 17:38 DC 10/15/20 19:43 Multivitamins/ Calcium (Thera-M Plus) 1 tab QMWF@0900 PO 10/10/20 09:00 10/29/20 07:57 Pantoprazole Sodium (Protonix) 40 mg HS PO 10/10/20 21:00 10/29/20 20:26 Non-Formulary Medication ([Potassium Tablet] ) 99 mg DAILY PO 10/10/20 09:00 UNV Doxycycline Hyclate (Vibra-Tab) 100 mg BID PO 10/12/20 21:00 10/21/20 22:00 DC 10/21/20 20:13 Memantine (Namenda) 10 mg DAILY PO 10/13/20 09:00 10/29/20 07:56 Lactobacillus Rhamnosus (Culturelle) 1 cap BID PO 10/16/20 09:00 10/29/20 20:27 Melatonin (Melatonin) 3 mg HS PO 10/16/20 21:00 10/29/20 20:27 Quetiapine Fumarate (SEROquel) 12.5 mg DAILY PO 10/19/20 09:00 10/29/20 07:57 Buspirone HCl (Buspar) 10 mg BID PO 10/26/20 21:00 10/29/20 20:27 I have reviewed the current psychotropics carefully including drug interactions. Risk benefit ratio favors no change other than as noted in my dictated progress note. 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
[2020-10-30 06:24] VITALS: BP 138/83
[2020-10-30] MEDS: ASPIRIN ENTERIC COATED 81 MG TABLET.DR. PO SCH (08:15)
[2020-10-30] MEDS: MEMANTINE 10 MG TABLET. PO SCH (08:15)
[2020-10-30] MEDS: busPIRone 10 MG TABLET. PO SCH ×2 (08:15→20:46)
[2020-10-30] MEDS: CALCIUM POLYCARBOPHIL 625 MG TABLET PO SCH (08:15)
[2020-10-30] MEDS: QUEtiapine 25 MG TABLET. PO SCH (08:15)
[2020-10-30] MEDS: LACTOBACILLUS RHAMNOSUS GG 1 CAPSULE. PO SCH ×2 (08:15→20:45)
[2020-10-30] MEDS: CITALOPRAM 20 MG TABLET. PO SCH (08:15)
[2020-10-30 15:16] VITALS: BP 99/64
[2020-10-30] MEDS: POLYETHYLENE GLYCOL 3350 17 GM PACKET. PO SCH (17:00)
[2020-10-30] MEDS: MELATONIN 3 MG TABLET PO SCH (20:45)
[2020-10-30] MEDS: ATORVASTATIN CALCIUM 10 MG TABLET. PO SCH (20:45)
[2020-10-30] MEDS: PANTOPRAZOLE 40 MG TABLET. PO SCH (20:46)
[2020-10-30] MEDS: MELOXICAM 15 MG TABLET. PO SCH (20:46)
--- NOTE | 2020-10-30 21:47 | PDOC ---
Exam Note: Leonard Note: Please also refer to the separate dictated note~for this date of service dictated separately.~Patient seen individually. Discussed the patient with Nursing staff reviewed the chart.~Reviewed interim history and current functioning. Reviewed vital signs,~Labs/ Radiology~and current medications noted below. Continue current treatment with the changes noted in the dictated addendum note Assessment: Vital Signs/I&O: Vital Signs Date Time Temp Pulse Resp B/P (MAP) Pulse Ox O2 Delivery O2 Flow Rate FiO2 10/30/20 15:16 98.0 78 16 99/64 (76) 93 10/30/20 06:24 Room Air I & O 10/29/20 10/29/20 10/30/20 15:00 23:00 07:00 Intake Total 580 ml 360 ml Balance 580 ml 360 ml Current Medications: Meds: Current Medications Medications (Trade) Dose Ordered Sig/Kiera Route PRN Reason Start Time Stop Time Status Last Admin Dose Admin Midazolam HCl (Versed) 5 mg 1X ONCE IM 10/09/20 23:00 10/09/20 23:07 DC 10/09/20 23:23 Lactated Ringer's 1,000 ml @ 1,000 mls/hr 1X ONCE IV 10/09/20 23:00 10/09/20 23:59 DC Levofloxacin (Levaquin) 750 mg 1X ONCE PO 10/10/20 01:00 10/10/20 01:01 DC 10/10/20 04:27 Acetaminophen (Tylenol) 650 mg PRN Q6HRS PRN PO MILD PAIN / TEMP > 100.3'F 10/10/20 05:00 Multi-Ingredient Ointment (Analgesic [place]) 1 gera PRN QID PRN TP MUSCLE PAIN 10/10/20 05:00 Al Hydroxide/Mg Hydroxide (Mylanta Plus Xs) 15 ml PRN AFTMEALHC PRN PO DYSPEPSIA 10/10/20 05:00 Magnesium Hydroxide (Milk Of Magnesia) 2,400 mg PRN QHS PRN PO CONSTIPATION 2ND CHOICE 10/10/20 05:00 Aspirin (Aspirin Enteric Coated) 81 mg DAILY08 PO 10/10/20 08:00 10/30/20 08:15 Atorvastatin Calcium (Lipitor) 10 mg QHS PO 10/10/20 21:00 10/30/20 20:45 Bisacodyl (Dulcolax Tab) 5 mg PRN DAILY PRN PO CONSTIPATION 1ST CHOICE 10/10/20 05:30 Buspirone HCl (Buspar) 5 mg BID PO 10/10/20 09:00 10/26/20 17:54 DC 10/26/20 07:50 Calcium Polycarbophil (Fibercon) 1,250 mg DAILY PO 10/10/20 09:00 10/30/20 08:15 Citalopram Hydrobromide (CeleXA) 20 mg DAILY PO 10/10/20 09:00 10/30/20 08:15 Docusate Sodium (Colace) 100 mg PRN DAILY PRN PO HARD STOOLS 10/10/20 05:30 Meloxicam (Mobic) 15 mg HS PO 10/10/20 21:00 10/30/20 20:46 Memantine (Namenda) 5 mg DAILY PO 10/10/20 09:00 10/12/20 16:01 DC 10/12/20 08:05 Olanzapine (ZyPREXA ZYDIS) 2.5 mg PRN BID PRN PO ANXIETY / AGITATION 10/10/20 05:30 10/23/20 21:24 Polyethylene Glycol (miraLAX) 17 gm DAILYWSUP PO 10/10/20 17:00 10/29/20 16:58 Trazodone HCl (Desyrel) 50 mg PRN QHS PRN PO INSOMNIA 10/10/20 05:30 10/15/20 01:22 Doxylamine Succinate (Unisom) 25 mg QHS PO 10/10/20 21:00 10/16/20 17:38 DC 10/15/20 19:43 Multivitamins/ Calcium (Thera-M Plus) 1 tab QMWF@0900 PO 10/10/20 09:00 10/29/20 07:57 Pantoprazole Sodium (Protonix) 40 mg HS PO 10/10/20 21:00 10/30/20 20:46 Non-Formulary Medication ([Potassium Tablet] ) 99 mg DAILY PO 10/10/20 09:00 UNV Doxycycline Hyclate (Vibra-Tab) 100 mg BID PO 10/12/20 21:00 10/21/20 22:00 DC 10/21/20 20:13 Memantine (Namenda) 10 mg DAILY PO 10/13/20 09:00 10/30/20 08:15 Lactobacillus Rhamnosus (Culturelle) 1 cap BID PO 10/16/20 09:00 10/30/20 20:45 Melatonin (Melatonin) 3 mg HS PO 10/16/20 21:00 10/30/20 20:45 Quetiapine Fumarate (SEROquel) 12.5 mg DAILY PO 10/19/20 09:00 10/30/20 08:15 Buspirone HCl (Buspar) 10 mg BID PO 10/26/20 21:00 10/30/20 20:46 I have reviewed the current psychotropics carefully including drug interactions. Risk benefit ratio favors no change other than as noted in my dictated progress note. 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
[2020-10-31 05:47] VITALS: BP 148/74
--- NOTE | 2020-10-31 06:36 | PDOC ---
Exam Note: Leonard Note: This note is a late entry for 10/29/2020 covers elements not covered in my initial note. Subjective: The patient was seen individually in the evening of 10/29/2020 with Jim LEAL, discussed and reviewed the chart. The patient slept 6-1/2 hours previous night. Overall the patient remains confused, wanders the hallway, redirects, otherwise, pleasant, smiling as I met with him. Review of Systems: No CV, , pulmonary, eye system symptoms on review. Mental Status Exam: The patient is oriented to himself. I met with him in the dayroom. Insight and judgment, recent and remote memory, attention and concentration, fund of knowledge is poor consistent with his diagnoses. Laboratory Data: Reviewed. Impression: Major neurocognitive disorder Alzheimer vascular with delusion, depression, behavioral disturbance. Impulse control disorder unspecified. Anxiety disorder unspecified. Plan: Maintain rest of the psychotropics unchanged. Assessment: Vital Signs/I&O: Vital Signs Date Time Temp Pulse Resp B/P (MAP) Pulse Ox O2 Delivery O2 Flow Rate FiO2 10/31/20 05:47 97.1 80 18 148/74 (98) 98 Room Air I & O 10/30/20 10/30/20 10/31/20 15:00 23:00 07:00 Intake Total 720 ml 120 ml Balance 720 ml 120 ml Current Medications: Meds: Current Medications Medications (Trade) Dose Ordered Sig/Kiera Route PRN Reason Start Time Stop Time Status Last Admin Dose Admin Midazolam HCl (Versed) 5 mg 1X ONCE IM 10/09/20 23:00 10/09/20 23:07 DC 10/09/20 23:23 Lactated Ringer's 1,000 ml @ 1,000 mls/hr 1X ONCE IV 10/09/20 23:00 10/09/20 23:59 DC Levofloxacin (Levaquin) 750 mg 1X ONCE PO 10/10/20 01:00 10/10/20 01:01 DC 10/10/20 04:27 Acetaminophen (Tylenol) 650 mg PRN Q6HRS PRN PO MILD PAIN / TEMP > 100.3'F 10/10/20 05:00 Multi-Ingredient Ointment (Analgesic [place]) 1 gera PRN QID PRN TP MUSCLE PAIN 10/10/20 05:00 Al Hydroxide/Mg Hydroxide (Mylanta Plus Xs) 15 ml PRN AFTMEALHC PRN PO DYSPEPSIA 10/10/20 05:00 Magnesium Hydroxide (Milk Of Magnesia) 2,400 mg PRN QHS PRN PO CONSTIPATION 2ND CHOICE 10/10/20 05:00 Aspirin (Aspirin Enteric Coated) 81 mg DAILY08 PO 10/10/20 08:00 10/30/20 08:15 Atorvastatin Calcium (Lipitor) 10 mg QHS PO 10/10/20 21:00 10/30/20 20:45 Bisacodyl (Dulcolax Tab) 5 mg PRN DAILY PRN PO CONSTIPATION 1ST CHOICE 10/10/20 05:30 Buspirone HCl (Buspar) 5 mg BID PO 10/10/20 09:00 10/26/20 17:54 DC 10/26/20 07:50 Calcium Polycarbophil (Fibercon) 1,250 mg DAILY PO 10/10/20 09:00 10/30/20 08:15 Citalopram Hydrobromide (CeleXA) 20 mg DAILY PO 10/10/20 09:00 10/30/20 08:15 Docusate Sodium (Colace) 100 mg PRN DAILY PRN PO HARD STOOLS 10/10/20 05:30 Meloxicam (Mobic) 15 mg HS PO 10/10/20 21:00 10/30/20 20:46 Memantine (Namenda) 5 mg DAILY PO 10/10/20 09:00 10/12/20 16:01 DC 10/12/20 08:05 Olanzapine (ZyPREXA ZYDIS) 2.5 mg PRN BID PRN PO ANXIETY / AGITATION 10/10/20 05:30 10/23/20 21:24 Polyethylene Glycol (miraLAX) 17 gm DAILYWSUP PO 10/10/20 17:00 10/29/20 16:58 Trazodone HCl (Desyrel) 50 mg PRN QHS PRN PO INSOMNIA 10/10/20 05:30 10/15/20 01:22 Doxylamine Succinate (Unisom) 25 mg QHS PO 10/10/20 21:00 10/16/20 17:38 DC 10/15/20 19:43 Multivitamins/ Calcium (Thera-M Plus) 1 tab QMWF@0900 PO 10/10/20 09:00 10/29/20 07:57 Pantoprazole Sodium (Protonix) 40 mg HS PO 10/10/20 21:00 10/30/20 20:46 Non-Formulary Medication ([Potassium Tablet] ) 99 mg DAILY PO 10/10/20 09:00 UNV Doxycycline Hyclate (Vibra-Tab) 100 mg BID PO 10/12/20 21:00 10/21/20 22:00 DC 10/21/20 20:13 Memantine (Namenda) 10 mg DAILY PO 10/13/20 09:00 10/30/20 08:15 Lactobacillus Rhamnosus (Culturelle) 1 cap BID PO 10/16/20 09:00 10/30/20 20:45 Melatonin (Melatonin) 3 mg HS PO 10/16/20 21:00 10/30/20 20:45 Quetiapine Fumarate (SEROquel) 12.5 mg DAILY PO 10/19/20 09:00 10/30/20 08:15 Buspirone HCl (Buspar) 10 mg BID PO 10/26/20 21:00 10/30/20 20:46 I have reviewed the current psychotropics carefully including drug interactions. Risk benefit ratio favors no change other than as noted in my dictated progress note. 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
--- NOTE | 2020-10-31 07:10 | PDOC ---
Exam Note: Leonard Note: This note is a late entry for 10/30/2020 covers elements not covered in my initial note. Subjective: The patient was seen individually in the evening of 10/30/2020 with Gabby LEAL, discussed and reviewed the chart. The patient slept 7 hours previous night. The patient did well previous night and during the day today. As I met with him this evening, he was found in a different patients room. He climbed up on a high bed, made himself very comfortable, totally oblivious of where he was. Review of Systems: No CV, , pulmonary, eye system symptoms on review. Mental Status Exam: The patient is oriented to himself. He is pleasant, not very verbal, but has a gentle smile about him. Insight and judgment, recent and remote memory, attention and concentration, fund of knowledge is poor consistent with his diagnoses. Laboratory Data: Reviewed. Impression: Major neurocognitive disorder Alzheimer vascular with delusion, depression, behavioral disturbance. Impulse control disorder unspecified. Anxiety disorder unspecified. Plan: Maintain rest of the psychotropics unchanged. Assessment: Vital Signs/I&O: Vital Signs Date Time Temp Pulse Resp B/P (MAP) Pulse Ox O2 Delivery O2 Flow Rate FiO2 10/31/20 05:47 97.1 80 18 148/74 (98) 98 Room Air I & O 10/30/20 10/30/20 10/31/20 15:00 23:00 07:00 Intake Total 720 ml 120 ml Balance 720 ml 120 ml Current Medications: Meds: Current Medications Medications (Trade) Dose Ordered Sig/Kiera Route PRN Reason Start Time Stop Time Status Last Admin Dose Admin Midazolam HCl (Versed) 5 mg 1X ONCE IM 10/09/20 23:00 10/09/20 23:07 DC 10/09/20 23:23 Lactated Ringer's 1,000 ml @ 1,000 mls/hr 1X ONCE IV 10/09/20 23:00 10/09/20 23:59 DC Levofloxacin (Levaquin) 750 mg 1X ONCE PO 10/10/20 01:00 10/10/20 01:01 DC 10/10/20 04:27 Acetaminophen (Tylenol) 650 mg PRN Q6HRS PRN PO MILD PAIN / TEMP > 100.3'F 10/10/20 05:00 Multi-Ingredient Ointment (Analgesic [place]) 1 gera PRN QID PRN TP MUSCLE PAIN 10/10/20 05:00 Al Hydroxide/Mg Hydroxide (Mylanta Plus Xs) 15 ml PRN AFTMEALHC PRN PO DYSPEPSIA 10/10/20 05:00 Magnesium Hydroxide (Milk Of Magnesia) 2,400 mg PRN QHS PRN PO CONSTIPATION 2ND CHOICE 10/10/20 05:00 Aspirin (Aspirin Enteric Coated) 81 mg DAILY08 PO 10/10/20 08:00 10/30/20 08:15 Atorvastatin Calcium (Lipitor) 10 mg QHS PO 10/10/20 21:00 10/30/20 20:45 Bisacodyl (Dulcolax Tab) 5 mg PRN DAILY PRN PO CONSTIPATION 1ST CHOICE 10/10/20 05:30 Buspirone HCl (Buspar) 5 mg BID PO 10/10/20 09:00 10/26/20 17:54 DC 10/26/20 07:50 Calcium Polycarbophil (Fibercon) 1,250 mg DAILY PO 10/10/20 09:00 10/30/20 08:15 Citalopram Hydrobromide (CeleXA) 20 mg DAILY PO 10/10/20 09:00 10/30/20 08:15 Docusate Sodium (Colace) 100 mg PRN DAILY PRN PO HARD STOOLS 10/10/20 05:30 Meloxicam (Mobic) 15 mg HS PO 10/10/20 21:00 10/30/20 20:46 Memantine (Namenda) 5 mg DAILY PO 10/10/20 09:00 10/12/20 16:01 DC 10/12/20 08:05 Olanzapine (ZyPREXA ZYDIS) 2.5 mg PRN BID PRN PO ANXIETY / AGITATION 10/10/20 05:30 10/23/20 21:24 Polyethylene Glycol (miraLAX) 17 gm DAILYWSUP PO 10/10/20 17:00 10/29/20 16:58 Trazodone HCl (Desyrel) 50 mg PRN QHS PRN PO INSOMNIA 10/10/20 05:30 10/15/20 01:22 Doxylamine Succinate (Unisom) 25 mg QHS PO 10/10/20 21:00 10/16/20 17:38 DC 10/15/20 19:43 Multivitamins/ Calcium (Thera-M Plus) 1 tab QMWF@0900 PO 10/10/20 09:00 10/29/20 07:57 Pantoprazole Sodium (Protonix) 40 mg HS PO 10/10/20 21:00 10/30/20 20:46 Non-Formulary Medication ([Potassium Tablet] ) 99 mg DAILY PO 10/10/20 09:00 UNV Doxycycline Hyclate (Vibra-Tab) 100 mg BID PO 10/12/20 21:00 10/21/20 22:00 DC 10/21/20 20:13 Memantine (Namenda) 10 mg DAILY PO 10/13/20 09:00 10/30/20 08:15 Lactobacillus Rhamnosus (Culturelle) 1 cap BID PO 10/16/20 09:00 10/30/20 20:45 Melatonin (Melatonin) 3 mg HS PO 10/16/20 21:00 10/30/20 20:45 Quetiapine Fumarate (SEROquel) 12.5 mg DAILY PO 10/19/20 09:00 10/30/20 08:15 Buspirone HCl (Buspar) 10 mg BID PO 10/26/20 21:00 10/30/20 20:46 I have reviewed the current psychotropics carefully including drug interactions. Risk benefit ratio favors no change other than as noted in my dictated progress note. 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
[2020-10-31] MEDS: CITALOPRAM 20 MG TABLET. PO SCH (08:22)
[2020-10-31] MEDS: ASPIRIN ENTERIC COATED 81 MG TABLET.DR. PO SCH (08:22)
[2020-10-31] MEDS: CALCIUM POLYCARBOPHIL 625 MG TABLET PO SCH (08:22)
[2020-10-31] MEDS: MULTIVITAMIN with MINERAL TABLET. PO SCH (08:22)
[2020-10-31] MEDS: LACTOBACILLUS RHAMNOSUS GG 1 CAPSULE. PO SCH ×2 (08:22→20:41)
[2020-10-31] MEDS: busPIRone 10 MG TABLET. PO SCH ×2 (08:23→20:41)
[2020-10-31] MEDS: QUEtiapine 25 MG TABLET. PO SCH (08:23)
[2020-10-31] MEDS: MEMANTINE 10 MG TABLET. PO SCH (08:23)
[2020-10-31 15:56] VITALS: BP 106/59
[2020-10-31] MEDS: POLYETHYLENE GLYCOL 3350 17 GM PACKET. PO SCH (17:11)
[2020-10-31] MEDS: MELOXICAM 15 MG TABLET. PO SCH (20:41)
[2020-10-31] MEDS: PANTOPRAZOLE 40 MG TABLET. PO SCH (20:41)
[2020-10-31] MEDS: MELATONIN 3 MG TABLET PO SCH (20:41)
[2020-10-31] MEDS: ATORVASTATIN CALCIUM 10 MG TABLET. PO SCH (20:41)
--- NOTE | 2020-10-31 21:56 | PDOC ---
Exam Note: Leonard Note: Please also refer to the separate dictated note~for this date of service dictated separately.~Patient seen individually. Discussed the patient with Nursing staff reviewed the chart.~Reviewed interim history and current functioning. Reviewed vital signs,~Labs/ Radiology~and current medications noted below. Continue current treatment with the changes noted in the dictated addendum note Assessment: Vital Signs/I&O: Vital Signs Date Time Temp Pulse Resp B/P (MAP) Pulse Ox O2 Delivery O2 Flow Rate FiO2 10/31/20 15:56 96.9 64 16 106/59 (75) 98 10/31/20 05:47 Room Air I & O 10/30/20 10/30/20 10/31/20 15:00 23:00 07:00 Intake Total 720 ml 120 ml Balance 720 ml 120 ml Current Medications: Meds: Current Medications Medications (Trade) Dose Ordered Sig/Kiera Route PRN Reason Start Time Stop Time Status Last Admin Dose Admin Midazolam HCl (Versed) 5 mg 1X ONCE IM 10/09/20 23:00 10/09/20 23:07 DC 10/09/20 23:23 Lactated Ringer's 1,000 ml @ 1,000 mls/hr 1X ONCE IV 10/09/20 23:00 10/09/20 23:59 DC Levofloxacin (Levaquin) 750 mg 1X ONCE PO 10/10/20 01:00 10/10/20 01:01 DC 10/10/20 04:27 Acetaminophen (Tylenol) 650 mg PRN Q6HRS PRN PO MILD PAIN / TEMP > 100.3'F 10/10/20 05:00 Multi-Ingredient Ointment (Analgesic [place]) 1 gera PRN QID PRN TP MUSCLE PAIN 10/10/20 05:00 Al Hydroxide/Mg Hydroxide (Mylanta Plus Xs) 15 ml PRN AFTMEALHC PRN PO DYSPEPSIA 10/10/20 05:00 Magnesium Hydroxide (Milk Of Magnesia) 2,400 mg PRN QHS PRN PO CONSTIPATION 2ND CHOICE 10/10/20 05:00 Aspirin (Aspirin Enteric Coated) 81 mg DAILY08 PO 10/10/20 08:00 10/31/20 08:22 Atorvastatin Calcium (Lipitor) 10 mg QHS PO 10/10/20 21:00 10/31/20 20:41 Bisacodyl (Dulcolax Tab) 5 mg PRN DAILY PRN PO CONSTIPATION 1ST CHOICE 10/10/20 05:30 Buspirone HCl (Buspar) 5 mg BID PO 10/10/20 09:00 10/26/20 17:54 DC 10/26/20 07:50 Calcium Polycarbophil (Fibercon) 1,250 mg DAILY PO 10/10/20 09:00 10/31/20 08:22 Citalopram Hydrobromide (CeleXA) 20 mg DAILY PO 10/10/20 09:00 10/31/20 08:22 Docusate Sodium (Colace) 100 mg PRN DAILY PRN PO HARD STOOLS 10/10/20 05:30 Meloxicam (Mobic) 15 mg HS PO 10/10/20 21:00 10/31/20 20:41 Memantine (Namenda) 5 mg DAILY PO 10/10/20 09:00 10/12/20 16:01 DC 10/12/20 08:05 Olanzapine (ZyPREXA ZYDIS) 2.5 mg PRN BID PRN PO ANXIETY / AGITATION 10/10/20 05:30 10/23/20 21:24 Polyethylene Glycol (miraLAX) 17 gm DAILYWSUP PO 10/10/20 17:00 10/31/20 17:11 Trazodone HCl (Desyrel) 50 mg PRN QHS PRN PO INSOMNIA 10/10/20 05:30 10/15/20 01:22 Doxylamine Succinate (Unisom) 25 mg QHS PO 10/10/20 21:00 10/16/20 17:38 DC 10/15/20 19:43 Multivitamins/ Calcium (Thera-M Plus) 1 tab QMWF@0900 PO 10/10/20 09:00 10/31/20 08:22 Pantoprazole Sodium (Protonix) 40 mg HS PO 10/10/20 21:00 10/31/20 20:41 Non-Formulary Medication ([Potassium Tablet] ) 99 mg DAILY PO 10/10/20 09:00 UNV Doxycycline Hyclate (Vibra-Tab) 100 mg BID PO 10/12/20 21:00 10/21/20 22:00 DC 10/21/20 20:13 Memantine (Namenda) 10 mg DAILY PO 10/13/20 09:00 10/31/20 08:23 Lactobacillus Rhamnosus (Culturelle) 1 cap BID PO 10/16/20 09:00 10/31/20 20:41 Melatonin (Melatonin) 3 mg HS PO 10/16/20 21:00 10/31/20 20:41 Quetiapine Fumarate (SEROquel) 12.5 mg DAILY PO 10/19/20 09:00 10/31/20 08:23 Buspirone HCl (Buspar) 10 mg BID PO 10/26/20 21:00 10/31/20 20:41 I have reviewed the current psychotropics carefully including drug interactions. Risk benefit ratio favors no change other than as noted in my dictated progress note. 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
[2020-11-01 05:58] VITALS: BP 114/68
[2020-11-01] MEDS: CALCIUM POLYCARBOPHIL 625 MG TABLET PO SCH (10:50)
[2020-11-01] MEDS: POLYETHYLENE GLYCOL 3350 17 GM PACKET. PO SCH (10:50)
[2020-11-01] MEDS: busPIRone 10 MG TABLET. PO SCH ×2 (10:51→21:05)
[2020-11-01] MEDS: MEMANTINE 10 MG TABLET. PO SCH (10:51)
[2020-11-01] MEDS: ASPIRIN ENTERIC COATED 81 MG TABLET.DR. PO SCH (10:51)
[2020-11-01] MEDS: CITALOPRAM 20 MG TABLET. PO SCH (10:51)
[2020-11-01] MEDS: LACTOBACILLUS RHAMNOSUS GG 1 CAPSULE. PO SCH ×2 (10:51→21:05)
[2020-11-01] MEDS: QUEtiapine 25 MG TABLET. PO SCH (10:51)
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
[2020-11-01 17:53] VITALS: BP 140/63
[2020-11-01] MEDS: ATORVASTATIN CALCIUM 10 MG TABLET. PO SCH (21:05)
[2020-11-01] MEDS: MELOXICAM 15 MG TABLET. PO SCH (21:05)
[2020-11-01] MEDS: MELATONIN 3 MG TABLET PO SCH (21:05)
[2020-11-01] MEDS: PANTOPRAZOLE 40 MG TABLET. PO SCH (21:05)
--- NOTE | 2020-11-01 21:58 | PDOC ---
Exam Note: Leonard Note: Please also refer to the separate dictated note~for this date of service dictated separately.~Patient seen individually. Discussed the patient with Nursing staff reviewed the chart.~Reviewed interim history and current functioning. Reviewed vital signs,~Labs/ Radiology~and current medications noted below. Continue current treatment with the changes noted in the dictated addendum note Assessment: Vital Signs/I&O: Vital Signs Date Time Temp Pulse Resp B/P (MAP) Pulse Ox O2 Delivery O2 Flow Rate FiO2 11/01/20 17:53 98.4 65 16 140/63 (88) 97 10/31/20 05:47 Room Air I & O 10/31/20 10/31/20 11/01/20 14:59 22:59 06:59 Intake Total 720 ml 220 ml 240 ml Balance 720 ml 220 ml 240 ml Current Medications: Meds: Current Medications Medications (Trade) Dose Ordered Sig/Kiera Route PRN Reason Start Time Stop Time Status Last Admin Dose Admin Midazolam HCl (Versed) 5 mg 1X ONCE IM 10/09/20 23:00 10/09/20 23:07 DC 10/09/20 23:23 Lactated Ringer's 1,000 ml @ 1,000 mls/hr 1X ONCE IV 10/09/20 23:00 10/09/20 23:59 DC Levofloxacin (Levaquin) 750 mg 1X ONCE PO 10/10/20 01:00 10/10/20 01:01 DC 10/10/20 04:27 Acetaminophen (Tylenol) 650 mg PRN Q6HRS PRN PO MILD PAIN / TEMP > 100.3'F 10/10/20 05:00 Multi-Ingredient Ointment (Analgesic [place]) 1 gera PRN QID PRN TP MUSCLE PAIN 10/10/20 05:00 Al Hydroxide/Mg Hydroxide (Mylanta Plus Xs) 15 ml PRN AFTMEALHC PRN PO DYSPEPSIA 10/10/20 05:00 Magnesium Hydroxide (Milk Of Magnesia) 2,400 mg PRN QHS PRN PO CONSTIPATION 2ND CHOICE 10/10/20 05:00 Aspirin (Aspirin Enteric Coated) 81 mg DAILY08 PO 10/10/20 08:00 11/01/20 10:51 Atorvastatin Calcium (Lipitor) 10 mg QHS PO 10/10/20 21:00 11/01/20 21:05 Bisacodyl (Dulcolax Tab) 5 mg PRN DAILY PRN PO CONSTIPATION 1ST CHOICE 10/10/20 05:30 Buspirone HCl (Buspar) 5 mg BID PO 10/10/20 09:00 10/26/20 17:54 DC 10/26/20 07:50 Calcium Polycarbophil (Fibercon) 1,250 mg DAILY PO 10/10/20 09:00 11/01/20 10:50 Citalopram Hydrobromide (CeleXA) 20 mg DAILY PO 10/10/20 09:00 11/01/20 10:51 Docusate Sodium (Colace) 100 mg PRN DAILY PRN PO HARD STOOLS 10/10/20 05:30 Meloxicam (Mobic) 15 mg HS PO 10/10/20 21:00 11/01/20 21:05 Memantine (Namenda) 5 mg DAILY PO 10/10/20 09:00 10/12/20 16:01 DC 10/12/20 08:05 Olanzapine (ZyPREXA ZYDIS) 2.5 mg PRN BID PRN PO ANXIETY / AGITATION 10/10/20 05:30 10/23/20 21:24 Polyethylene Glycol (miraLAX) 17 gm DAILYWSUP PO 10/10/20 17:00 11/01/20 10:50 Trazodone HCl (Desyrel) 50 mg PRN QHS PRN PO INSOMNIA 10/10/20 05:30 10/15/20 01:22 Doxylamine Succinate (Unisom) 25 mg QHS PO 10/10/20 21:00 10/16/20 17:38 DC 10/15/20 19:43 Multivitamins/ Calcium (Thera-M Plus) 1 tab QMWF@0900 PO 10/10/20 09:00 10/31/20 08:22 Pantoprazole Sodium (Protonix) 40 mg HS PO 10/10/20 21:00 11/01/20 21:05 Non-Formulary Medication ([Potassium Tablet] ) 99 mg DAILY PO 10/10/20 09:00 UNV Doxycycline Hyclate (Vibra-Tab) 100 mg BID PO 10/12/20 21:00 10/21/20 22:00 DC 10/21/20 20:13 Memantine (Namenda) 10 mg DAILY PO 10/13/20 09:00 11/01/20 10:51 Lactobacillus Rhamnosus (Culturelle) 1 cap BID PO 10/16/20 09:00 11/01/20 21:05 Melatonin (Melatonin) 3 mg HS PO 10/16/20 21:00 11/01/20 21:05 Quetiapine Fumarate (SEROquel) 12.5 mg DAILY PO 10/19/20 09:00 11/01/20 10:51 Buspirone HCl (Buspar) 10 mg BID PO 10/26/20 21:00 11/01/20 21:05 I have reviewed the current psychotropics carefully including drug interactions. Risk benefit ratio favors no change other than as noted in my dictated progress note. 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
[2020-11-02 06:00] VITALS: BP 115/67
[2020-11-02] MEDS: LACTOBACILLUS RHAMNOSUS GG 1 CAPSULE. PO SCH ×2 (08:27→21:40)
[2020-11-02] MEDS: ASPIRIN ENTERIC COATED 81 MG TABLET.DR. PO SCH (08:27)
[2020-11-02] MEDS: busPIRone 10 MG TABLET. PO SCH ×2 (08:28→21:40)
[2020-11-02] MEDS: MEMANTINE 10 MG TABLET. PO SCH (08:29)
[2020-11-02] MEDS: CALCIUM POLYCARBOPHIL 625 MG TABLET PO SCH (08:29)
[2020-11-02] MEDS: CITALOPRAM 20 MG TABLET. PO SCH (08:29)
[2020-11-02] MEDS: MULTIVITAMIN with MINERAL TABLET. PO SCH (08:29)
[2020-11-02] MEDS: QUEtiapine 25 MG TABLET. PO SCH (08:29)
[2020-11-02 15:50] VITALS: BP 97/61
[2020-11-02] MEDS: POLYETHYLENE GLYCOL 3350 17 GM PACKET. PO SCH (17:00)
[2020-11-02] MEDS: MELOXICAM 15 MG TABLET. PO SCH (21:40)
[2020-11-02] MEDS: ATORVASTATIN CALCIUM 10 MG TABLET. PO SCH (21:40)
[2020-11-02] MEDS: MELATONIN 3 MG TABLET PO SCH (21:40)
[2020-11-02] MEDS: PANTOPRAZOLE 40 MG TABLET. PO SCH (21:40)
--- NOTE | 2020-11-02 22:11 | PDOC ---
Exam Note: Leonard Note: Please also refer to the separate dictated note~for this date of service dictated separately.~Patient seen individually. Discussed the patient with Nursing staff reviewed the chart.~Reviewed interim history and current functioning. Reviewed vital signs,~Labs/ Radiology~and current medications noted below. Continue current treatment with the changes noted in the dictated addendum note Assessment: Vital Signs/I&O: Vital Signs Date Time Temp Pulse Resp B/P (MAP) Pulse Ox O2 Delivery O2 Flow Rate FiO2 11/02/20 15:50 97.9 72 20 97/61 (73) 95 Room Air I & O 11/01/20 11/01/20 11/02/20 15:00 23:00 07:00 Intake Total 360 ml 480 ml Balance 360 ml 480 ml Current Medications: Meds: Current Medications Medications (Trade) Dose Ordered Sig/Kiera Route PRN Reason Start Time Stop Time Status Last Admin Dose Admin Midazolam HCl (Versed) 5 mg 1X ONCE IM 10/09/20 23:00 10/09/20 23:07 DC 10/09/20 23:23 Lactated Ringer's 1,000 ml @ 1,000 mls/hr 1X ONCE IV 10/09/20 23:00 10/09/20 23:59 DC Levofloxacin (Levaquin) 750 mg 1X ONCE PO 10/10/20 01:00 10/10/20 01:01 DC 10/10/20 04:27 Acetaminophen (Tylenol) 650 mg PRN Q6HRS PRN PO MILD PAIN / TEMP > 100.3'F 10/10/20 05:00 Multi-Ingredient Ointment (Analgesic [place]) 1 gera PRN QID PRN TP MUSCLE PAIN 10/10/20 05:00 Al Hydroxide/Mg Hydroxide (Mylanta Plus Xs) 15 ml PRN AFTMEALHC PRN PO DYSPEPSIA 10/10/20 05:00 Magnesium Hydroxide (Milk Of Magnesia) 2,400 mg PRN QHS PRN PO CONSTIPATION 2ND CHOICE 10/10/20 05:00 Aspirin (Aspirin Enteric Coated) 81 mg DAILY08 PO 10/10/20 08:00 11/02/20 08:27 Atorvastatin Calcium (Lipitor) 10 mg QHS PO 10/10/20 21:00 11/02/20 21:40 Bisacodyl (Dulcolax Tab) 5 mg PRN DAILY PRN PO CONSTIPATION 1ST CHOICE 10/10/20 05:30 Buspirone HCl (Buspar) 5 mg BID PO 10/10/20 09:00 10/26/20 17:54 DC 10/26/20 07:50 Calcium Polycarbophil (Fibercon) 1,250 mg DAILY PO 10/10/20 09:00 11/02/20 08:29 Citalopram Hydrobromide (CeleXA) 20 mg DAILY PO 10/10/20 09:00 11/02/20 08:29 Docusate Sodium (Colace) 100 mg PRN DAILY PRN PO HARD STOOLS 10/10/20 05:30 Meloxicam (Mobic) 15 mg HS PO 10/10/20 21:00 11/02/20 21:40 Memantine (Namenda) 5 mg DAILY PO 10/10/20 09:00 10/12/20 16:01 DC 10/12/20 08:05 Olanzapine (ZyPREXA ZYDIS) 2.5 mg PRN BID PRN PO ANXIETY / AGITATION 10/10/20 05:30 10/23/20 21:24 Polyethylene Glycol (miraLAX) 17 gm DAILYWSUP PO 10/10/20 17:00 11/01/20 10:50 Trazodone HCl (Desyrel) 50 mg PRN QHS PRN PO INSOMNIA 10/10/20 05:30 10/15/20 01:22 Doxylamine Succinate (Unisom) 25 mg QHS PO 10/10/20 21:00 10/16/20 17:38 DC 10/15/20 19:43 Multivitamins/ Calcium (Thera-M Plus) 1 tab QMWF@0900 PO 10/10/20 09:00 11/02/20 08:29 Pantoprazole Sodium (Protonix) 40 mg HS PO 10/10/20 21:00 11/02/20 21:40 Non-Formulary Medication ([Potassium Tablet] ) 99 mg DAILY PO 10/10/20 09:00 UNV Doxycycline Hyclate (Vibra-Tab) 100 mg BID PO 10/12/20 21:00 10/21/20 22:00 DC 10/21/20 20:13 Memantine (Namenda) 10 mg DAILY PO 10/13/20 09:00 11/02/20 08:29 Lactobacillus Rhamnosus (Culturelle) 1 cap BID PO 10/16/20 09:00 11/02/20 21:40 Melatonin (Melatonin) 3 mg HS PO 10/16/20 21:00 11/02/20 21:40 Quetiapine Fumarate (SEROquel) 12.5 mg DAILY PO 10/19/20 09:00 11/02/20 08:29 Buspirone HCl (Buspar) 10 mg BID PO 10/26/20 21:00 11/02/20 21:40 I have reviewed the current psychotropics carefully including drug interactions. Risk benefit ratio favors no change other than as noted in my dictated progress note. 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
[2020-11-03 06:28] VITALS: BP 146/82
--- NOTE | 2020-11-03 07:35 | PDOC ---
Exam Note: Leonard Note: This note is a late entry for 10/31/2020 covers elements not covered in my initial note. Subjective: The patient was seen individually in the evening of 10/31/2020 with Gabby LEAL, discussed and reviewed the chart. The patient slept 6-1/4 hours previous night. The patient did well previous night and during the day today. Review of Systems: No CV, , pulmonary, eye system symptoms on review. Mental Status Exam: The patient is oriented to himself. Insight and judgment, recent and remote memory, attention and concentration, fund of knowledge is poor consistent with his diagnoses. Laboratory Data: Reviewed. Impression: Major neurocognitive disorder Alzheimer vascular with delusion, depression, behavioral disturbance. Impulse control disorder unspecified. Anxiety disorder unspecified. Plan: Maintain rest of the psychotropics unchanged. Assessment: Vital Signs/I&O: Vital Signs Date Time Temp Pulse Resp B/P (MAP) Pulse Ox O2 Delivery O2 Flow Rate FiO2 11/03/20 06:28 97.4 85 16 146/82 (103) 98 11/02/20 15:50 Room Air I & O 11/02/20 11/02/20 11/03/20 15:00 23:00 07:00 Intake Total 480 ml 360 ml Balance 480 ml 360 ml Current Medications: Meds: Current Medications Medications (Trade) Dose Ordered Sig/Kiera Route PRN Reason Start Time Stop Time Status Last Admin Dose Admin Midazolam HCl (Versed) 5 mg 1X ONCE IM 10/09/20 23:00 10/09/20 23:07 DC 10/09/20 23:23 Lactated Ringer's 1,000 ml @ 1,000 mls/hr 1X ONCE IV 10/09/20 23:00 10/09/20 23:59 DC Levofloxacin (Levaquin) 750 mg 1X ONCE PO 10/10/20 01:00 10/10/20 01:01 DC 10/10/20 04:27 Acetaminophen (Tylenol) 650 mg PRN Q6HRS PRN PO MILD PAIN / TEMP > 100.3'F 10/10/20 05:00 Multi-Ingredient Ointment (Analgesic [place]) 1 gera PRN QID PRN TP MUSCLE PAIN 10/10/20 05:00 Al Hydroxide/Mg Hydroxide (Mylanta Plus Xs) 15 ml PRN AFTMEALHC PRN PO DYSPEPSIA 4/7/21 05:00 Magnesium Hydroxide (Milk Of Magnesia) 2,400 mg PRN QHS PRN PO CONSTIPATION 2ND CHOICE 10/10/20 05:00 Aspirin (Aspirin Enteric Coated) 81 mg DAILY08 PO 10/10/20 08:00 11/02/20 08:27 Atorvastatin Calcium (Lipitor) 10 mg QHS PO 10/10/20 21:00 11/02/20 21:40 Bisacodyl (Dulcolax Tab) 5 mg PRN DAILY PRN PO CONSTIPATION 1ST CHOICE 10/10/20 05:30 Buspirone HCl (Buspar) 5 mg BID PO 10/10/20 09:00 10/26/20 17:54 DC 10/26/20 07:50 Calcium Polycarbophil (Fibercon) 1,250 mg DAILY PO 10/10/20 09:00 11/02/20 08:29 Citalopram Hydrobromide (CeleXA) 20 mg DAILY PO 10/10/20 09:00 11/02/20 08:29 Docusate Sodium (Colace) 100 mg PRN DAILY PRN PO HARD STOOLS 10/10/20 05:30 Meloxicam (Mobic) 15 mg HS PO 10/10/20 21:00 11/02/20 21:40 Memantine (Namenda) 5 mg DAILY PO 10/10/20 09:00 10/12/20 16:01 DC 10/12/20 08:05 Olanzapine (ZyPREXA ZYDIS) 2.5 mg PRN BID PRN PO ANXIETY / AGITATION 10/10/20 05:30 10/23/20 21:24 Polyethylene Glycol (miraLAX) 17 gm DAILYWSUP PO 10/10/20 17:00 11/01/20 10:50 Trazodone HCl (Desyrel) 50 mg PRN QHS PRN PO INSOMNIA 10/10/20 05:30 10/15/20 01:22 Doxylamine Succinate (Unisom) 25 mg QHS PO 10/10/20 21:00 10/16/20 17:38 DC 10/15/20 19:43 Multivitamins/ Calcium (Thera-M Plus) 1 tab QMWF@0900 PO 10/10/20 09:00 11/02/20 08:29 Pantoprazole Sodium (Protonix) 40 mg HS PO 10/10/20 21:00 11/02/20 21:40 Non-Formulary Medication ([Potassium Tablet] ) 99 mg DAILY PO 10/10/20 09:00 UNV Doxycycline Hyclate (Vibra-Tab) 100 mg BID PO 10/12/20 21:00 10/21/20 22:00 DC 10/21/20 20:13 Memantine (Namenda) 10 mg DAILY PO 10/13/20 09:00 11/02/20 08:29 Lactobacillus Rhamnosus (Culturelle) 1 cap BID PO 10/16/20 09:00 11/02/20 21:40 Melatonin (Melatonin) 3 mg HS PO 10/16/20 21:00 11/02/20 21:40 Quetiapine Fumarate (SEROquel) 12.5 mg DAILY PO 10/19/20 09:00 11/02/20 08:29 Buspirone HCl (Buspar) 10 mg BID PO 10/26/20 21:00 11/02/20 21:40 I have reviewed the current psychotropics carefully including drug interactions. Risk benefit ratio favors no change other than as noted in my dictated progress note. 

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
[2020-11-03] MEDS: ASPIRIN ENTERIC COATED 81 MG TABLET.DR. PO SCH (08:43)
[2020-11-03] MEDS: CITALOPRAM 20 MG TABLET. PO SCH (08:43)
[2020-11-03] MEDS: LACTOBACILLUS RHAMNOSUS GG 1 CAPSULE. PO SCH ×2 (08:44→21:32)
[2020-11-03] MEDS: busPIRone 10 MG TABLET. PO SCH ×2 (08:44→21:31)
[2020-11-03] MEDS: CALCIUM POLYCARBOPHIL 625 MG TABLET PO SCH (08:44)
[2020-11-03] MEDS: QUEtiapine 25 MG TABLET. PO SCH (08:44)
[2020-11-03] MEDS: MEMANTINE 10 MG TABLET. PO SCH (08:44)
[2020-11-03 15:46] VITALS: BP 102/66
[2020-11-03] MEDS: POLYETHYLENE GLYCOL 3350 17 GM PACKET. PO SCH (17:00)
[2020-11-03] MEDS: PANTOPRAZOLE 40 MG TABLET. PO SCH (21:31)
[2020-11-03] MEDS: MELATONIN 3 MG TABLET PO SCH (21:32)
[2020-11-03] MEDS: ATORVASTATIN CALCIUM 10 MG TABLET. PO SCH (21:32)
[2020-11-03] MEDS: MELOXICAM 15 MG TABLET. PO SCH (21:32)
--- NOTE | 2020-11-03 21:49 | PDOC ---
Exam Note: Leonard Note: Please also refer to the separate dictated note~for this date of service dictated separately.~Patient seen individually. Discussed the patient with Nursing staff reviewed the chart.~Reviewed interim history and current functioning. Reviewed vital signs,~Labs/ Radiology~and current medications noted below. Continue current treatment with the changes noted in the dictated addendum note Assessment: Vital Signs/I&O: Vital Signs Date Time Temp Pulse Resp B/P (MAP) Pulse Ox O2 Delivery O2 Flow Rate FiO2 11/03/20 15:46 97.6 76 18 102/66 (78) 97 Room Air I & O 11/02/20 11/02/20 11/03/20 15:00 23:00 07:00 Intake Total 480 ml 360 ml Balance 480 ml 360 ml Current Medications: Meds: Current Medications Medications (Trade) Dose Ordered Sig/Kiera Route PRN Reason Start Time Stop Time Status Last Admin Dose Admin Midazolam HCl (Versed) 5 mg 1X ONCE IM 10/09/20 23:00 10/09/20 23:07 DC 10/09/20 23:23 Lactated Ringer's 1,000 ml @ 1,000 mls/hr 1X ONCE IV 10/09/20 23:00 10/09/20 23:59 DC Levofloxacin (Levaquin) 750 mg 1X ONCE PO 10/10/20 01:00 10/10/20 01:01 DC 10/10/20 04:27 Acetaminophen (Tylenol) 650 mg PRN Q6HRS PRN PO MILD PAIN / TEMP > 100.3'F 10/10/20 05:00 Multi-Ingredient Ointment (Analgesic [place]) 1 gera PRN QID PRN TP MUSCLE PAIN 10/10/20 05:00 Al Hydroxide/Mg Hydroxide (Mylanta Plus Xs) 15 ml PRN AFTMEALHC PRN PO DYSPEPSIA 10/10/20 05:00 Magnesium Hydroxide (Milk Of Magnesia) 2,400 mg PRN QHS PRN PO CONSTIPATION 2ND CHOICE 10/10/20 05:00 Aspirin (Aspirin Enteric Coated) 81 mg DAILY08 PO 10/10/20 08:00 11/03/20 08:43 Atorvastatin Calcium (Lipitor) 10 mg QHS PO 10/10/20 21:00 11/03/20 21:32 Bisacodyl (Dulcolax Tab) 5 mg PRN DAILY PRN PO CONSTIPATION 1ST CHOICE 10/10/20 05:30 Buspirone HCl (Buspar) 5 mg BID PO 10/10/20 09:00 10/26/20 17:54 DC 10/26/20 07:50 Calcium Polycarbophil (Fibercon) 1,250 mg DAILY PO 10/10/20 09:00 11/03/20 08:44 Citalopram Hydrobromide (CeleXA) 20 mg DAILY PO 10/10/20 09:00 11/03/20 08:43 Docusate Sodium (Colace) 100 mg PRN DAILY PRN PO HARD STOOLS 10/10/20 05:30 Meloxicam (Mobic) 15 mg HS PO 10/10/20 21:00 11/03/20 21:32 Memantine (Namenda) 5 mg DAILY PO 10/10/20 09:00 10/12/20 16:01 DC 10/12/20 08:05 Olanzapine (ZyPREXA ZYDIS) 2.5 mg PRN BID PRN PO ANXIETY / AGITATION 10/10/20 05:30 10/23/20 21:24 Polyethylene Glycol (miraLAX) 17 gm DAILYWSUP PO 10/10/20 17:00 11/03/20 17:00 Trazodone HCl (Desyrel) 50 mg PRN QHS PRN PO INSOMNIA 10/10/20 05:30 10/15/20 01:22 Doxylamine Succinate (Unisom) 25 mg QHS PO 10/10/20 21:00 10/16/20 17:38 DC 10/15/20 19:43 Multivitamins/ Calcium (Thera-M Plus) 1 tab QMWF@0900 PO 10/10/20 09:00 11/02/20 08:29 Pantoprazole Sodium (Protonix) 40 mg HS PO 10/10/20 21:00 11/03/20 21:31 Non-Formulary Medication ([Potassium Tablet] ) 99 mg DAILY PO 10/10/20 09:00 UNV Doxycycline Hyclate (Vibra-Tab) 100 mg BID PO 10/12/20 21:00 10/21/20 22:00 DC 10/21/20 20:13 Memantine (Namenda) 10 mg DAILY PO 10/13/20 09:00 11/03/20 08:44 Lactobacillus Rhamnosus (Culturelle) 1 cap BID PO 10/16/20 09:00 11/03/20 21:32 Melatonin (Melatonin) 3 mg HS PO 10/16/20 21:00 11/03/20 21:32 Quetiapine Fumarate (SEROquel) 12.5 mg DAILY PO 10/19/20 09:00 11/03/20 08:44 Buspirone HCl (Buspar) 10 mg BID PO 10/26/20 21:00 11/03/20 21:31 I have reviewed the current psychotropics carefully including drug interactions. Risk benefit ratio favors no change other than as noted in my dictated progress note. 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
[2020-11-04 06:15] VITALS: BP 100/63
[2020-11-04] MEDS: busPIRone 10 MG TABLET. PO SCH ×2 (08:58→20:25)
[2020-11-04] MEDS: LACTOBACILLUS RHAMNOSUS GG 1 CAPSULE. PO SCH ×2 (08:58→20:25)
[2020-11-04] MEDS: CALCIUM POLYCARBOPHIL 625 MG TABLET PO SCH (08:58)
[2020-11-04] MEDS: ASPIRIN ENTERIC COATED 81 MG TABLET.DR. PO SCH (08:58)
[2020-11-04] MEDS: CITALOPRAM 20 MG TABLET. PO SCH (08:58)
[2020-11-04] MEDS: MEMANTINE 10 MG TABLET. PO SCH (08:59)
[2020-11-04] MEDS: QUEtiapine 25 MG TABLET. PO SCH (08:59)
[2020-11-04 16:11] VITALS: BP 129/75
[2020-11-04] MEDS: POLYETHYLENE GLYCOL 3350 17 GM PACKET. PO SCH (17:08)
[2020-11-04] MEDS: ATORVASTATIN CALCIUM 10 MG TABLET. PO SCH (20:25)
[2020-11-04] MEDS: PANTOPRAZOLE 40 MG TABLET. PO SCH (20:26)
[2020-11-04] MEDS: MELATONIN 3 MG TABLET PO SCH (20:26)
[2020-11-04] MEDS: MELOXICAM 15 MG TABLET. PO SCH (20:26)
--- NOTE | 2020-11-04 21:53 | PDOC ---
Exam Note: Leonard Note: Please also refer to the separate dictated note~for this date of service dictated separately.~Patient seen individually. Discussed the patient with Nursing staff reviewed the chart.~Reviewed interim history and current functioning. Reviewed vital signs,~Labs/ Radiology~and current medications noted below. Continue current treatment with the changes noted in the dictated addendum note Assessment: Vital Signs/I&O: Vital Signs Date Time Temp Pulse Resp B/P (MAP) Pulse Ox O2 Delivery O2 Flow Rate FiO2 11/04/20 16:11 97.5 65 18 129/75 (93) 97 11/04/20 06:15 Room Air I & O 11/03/20 11/03/20 11/04/20 15:00 23:00 07:00 Intake Total 720 ml 360 ml Balance 720 ml 360 ml Current Medications: Meds: Current Medications Medications (Trade) Dose Ordered Sig/Kiera Route PRN Reason Start Time Stop Time Status Last Admin Dose Admin Midazolam HCl (Versed) 5 mg 1X ONCE IM 10/09/20 23:00 10/09/20 23:07 DC 10/09/20 23:23 Lactated Ringer's 1,000 ml @ 1,000 mls/hr 1X ONCE IV 10/09/20 23:00 10/09/20 23:59 DC Levofloxacin (Levaquin) 750 mg 1X ONCE PO 10/10/20 01:00 10/10/20 01:01 DC 10/10/20 04:27 Acetaminophen (Tylenol) 650 mg PRN Q6HRS PRN PO MILD PAIN / TEMP > 100.3'F 10/10/20 05:00 Multi-Ingredient Ointment (Analgesic [place]) 1 gera PRN QID PRN TP MUSCLE PAIN 10/10/20 05:00 Al Hydroxide/Mg Hydroxide (Mylanta Plus Xs) 15 ml PRN AFTMEALHC PRN PO DYSPEPSIA 10/10/20 05:00 Magnesium Hydroxide (Milk Of Magnesia) 2,400 mg PRN QHS PRN PO CONSTIPATION 2ND CHOICE 10/10/20 05:00 Aspirin (Aspirin Enteric Coated) 81 mg DAILY08 PO 10/10/20 08:00 11/04/20 08:58 Atorvastatin Calcium (Lipitor) 10 mg QHS PO 10/10/20 21:00 11/04/20 20:25 Bisacodyl (Dulcolax Tab) 5 mg PRN DAILY PRN PO CONSTIPATION 1ST CHOICE 10/10/20 05:30 Buspirone HCl (Buspar) 5 mg BID PO 10/10/20 09:00 10/26/20 17:54 DC 10/26/20 07:50 Calcium Polycarbophil (Fibercon) 1,250 mg DAILY PO 10/10/20 09:00 11/04/20 08:58 Citalopram Hydrobromide (CeleXA) 20 mg DAILY PO 10/10/20 09:00 11/04/20 08:58 Docusate Sodium (Colace) 100 mg PRN DAILY PRN PO HARD STOOLS 10/10/20 05:30 Meloxicam (Mobic) 15 mg HS PO 10/10/20 21:00 11/04/20 20:26 Memantine (Namenda) 5 mg DAILY PO 10/10/20 09:00 10/12/20 16:01 DC 10/12/20 08:05 Olanzapine (ZyPREXA ZYDIS) 2.5 mg PRN BID PRN PO ANXIETY / AGITATION 10/10/20 05:30 10/23/20 21:24 Polyethylene Glycol (miraLAX) 17 gm DAILYWSUP PO 10/10/20 17:00 11/04/20 17:08 Trazodone HCl (Desyrel) 50 mg PRN QHS PRN PO INSOMNIA 10/10/20 05:30 10/15/20 01:22 Doxylamine Succinate (Unisom) 25 mg QHS PO 10/10/20 21:00 10/16/20 17:38 DC 10/15/20 19:43 Multivitamins/ Calcium (Thera-M Plus) 1 tab QMWF@0900 PO 10/10/20 09:00 11/02/20 08:29 Pantoprazole Sodium (Protonix) 40 mg HS PO 10/10/20 21:00 11/04/20 20:26 Non-Formulary Medication ([Potassium Tablet] ) 99 mg DAILY PO 10/10/20 09:00 UNV Doxycycline Hyclate (Vibra-Tab) 100 mg BID PO 10/12/20 21:00 10/21/20 22:00 DC 10/21/20 20:13 Memantine (Namenda) 10 mg DAILY PO 10/13/20 09:00 11/04/20 08:59 Lactobacillus Rhamnosus (Culturelle) 1 cap BID PO 10/16/20 09:00 11/04/20 20:25 Melatonin (Melatonin) 3 mg HS PO 10/16/20 21:00 11/04/20 20:26 Quetiapine Fumarate (SEROquel) 12.5 mg DAILY PO 10/19/20 09:00 11/04/20 08:59 Buspirone HCl (Buspar) 10 mg BID PO 10/26/20 21:00 11/04/20 20:25 I have reviewed the current psychotropics carefully including drug interactions. Risk benefit ratio favors no change other than as noted in my dictated progress note. 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
[2020-11-04] MEDS ORDERED: ACET325T21 PO (23:08)
[2020-11-04] MEDS ORDERED: ATOR10TA60 PO (23:09)
[2020-11-04] MEDS ORDERED: ASPI-889 PO (23:09)
[2020-11-04] MEDS ORDERED: BISA-42 PO (23:10)
[2020-11-04] MEDS ORDERED: CITA20TA9 PO (23:11)
[2020-11-04] MEDS ORDERED: CALC625T PO (23:11)
[2020-11-04] MEDS ORDERED: DOCU-109 PO (23:13)
[2020-11-04] MEDS ORDERED: LACT1CAP19 PO (23:14)
[2020-11-04] MEDS ORDERED: MAG-115 PO (23:15)
[2020-11-04] MEDS ORDERED: MELO15TA6 PO (23:16)
[2020-11-04] MEDS ORDERED: MAGN24003 PO (23:16)
[2020-11-04] MEDS ORDERED: MEMA10TA PO (23:17)
[2020-11-04] MEDS ORDERED: TROL86CR TP (23:18)
[2020-11-04] MEDS ORDERED: MULT-245 PO (23:19)
[2020-11-04] MEDS ORDERED: PANT40TA3 PO (23:20)
[2020-11-04] MEDS ORDERED: OLAN5TAB9 PO (23:20)
[2020-11-04] MEDS ORDERED: POLY119P4 PO (23:21)
[2020-11-04] MEDS ORDERED: QUET25TA5 PO (23:22)
[2020-11-04] MEDS ORDERED: BUSP10TA PO (23:23)
[2020-11-04] MEDS ORDERED: TRAZ-120 PO (23:24)
[2020-11-05 05:59] VITALS: BP 124/75
--- NOTE | 2020-11-05 06:43 | PDOC ---
Exam Note: Leonard Note: This note is a late entry for 11/02/2020 covers elements not covered in my initial note. Subjective: The patient was seen individually in the evening of 11/02/2020 with Annalisa LEAL, discussed and reviewed the chart. The patient slept 5-3/4 hours previous night. He has been confused, compliant with medications. Often found in the bed of other patients. This is where I found him in another room and he walked back with me, but behaviourally appeared stable. Review of Systems: No CV, , pulmonary, eye, ENT system symptoms on review. Mental Status Exam: The patient is oriented to himself. Insight and judgment, recent and remote memory, attention and concentration, fund of knowledge is poor consistent with his diagnoses. Laboratory Data: Reviewed. Impression: Major neurocognitive disorder Alzheimer vascular with delusion, depression, behavioral disturbance. Impulse control disorder unspecified. Anxiety disorder unspecified. Plan: Maintain rest of the psychotropics unchanged. Assessment: Vital Signs/I&O: Vital Signs Date Time Temp Pulse Resp B/P (MAP) Pulse Ox O2 Delivery O2 Flow Rate FiO2 11/05/20 05:59 97.5 73 19 124/75 (91) 98 11/04/20 06:15 Room Air I & O 11/04/20 11/04/20 11/05/20 15:00 23:00 07:00 Intake Total 720 ml 480 ml Balance 720 ml 480 ml Current Medications: Meds: Current Medications Medications (Trade) Dose Ordered Sig/Kiera Route PRN Reason Start Time Stop Time Status Last Admin Dose Admin Midazolam HCl (Versed) 5 mg 1X ONCE IM 10/09/20 23:00 10/09/20 23:07 DC 10/09/20 23:23 Lactated Ringer's 1,000 ml @ 1,000 mls/hr 1X ONCE IV 10/09/20 23:00 10/09/20 23:59 DC Levofloxacin (Levaquin) 750 mg 1X ONCE PO 10/10/20 01:00 10/10/20 01:01 DC 10/10/20 04:27 Acetaminophen (Tylenol) 650 mg PRN Q6HRS PRN PO MILD PAIN / TEMP > 100.3'F 10/10/20 05:00 Multi-Ingredient Ointment (Analgesic [place]) 1 gera PRN QID PRN TP MUSCLE PAIN 10/10/20 05:00 Al Hydroxide/Mg Hydroxide (Mylanta Plus Xs) 15 ml PRN AFTMEALHC PRN PO DYSPEPSIA 10/10/20 05:00 Magnesium Hydroxide (Milk Of Magnesia) 2,400 mg PRN QHS PRN PO CONSTIPATION 2ND CHOICE 10/10/20 05:00 Aspirin (Aspirin Enteric Coated) 81 mg DAILY08 PO 10/10/20 08:00 11/04/20 08:58 Atorvastatin Calcium (Lipitor) 10 mg QHS PO 10/10/20 21:00 11/04/20 20:25 Bisacodyl (Dulcolax Tab) 5 mg PRN DAILY PRN PO CONSTIPATION 1ST CHOICE 10/10/20 05:30 Buspirone HCl (Buspar) 5 mg BID PO 10/10/20 09:00 10/26/20 17:54 DC 10/26/20 07:50 Calcium Polycarbophil (Fibercon) 1,250 mg DAILY PO 10/10/20 09:00 11/04/20 08:58 Citalopram Hydrobromide (CeleXA) 20 mg DAILY PO 10/10/20 09:00 11/04/20 08:58 Docusate Sodium (Colace) 100 mg PRN DAILY PRN PO HARD STOOLS 10/10/20 05:30 Meloxicam (Mobic) 15 mg HS PO 10/10/20 21:00 11/04/20 20:26 Memantine (Namenda) 5 mg DAILY PO 10/10/20 09:00 10/12/20 16:01 DC 10/12/20 08:05 Olanzapine (ZyPREXA ZYDIS) 2.5 mg PRN BID PRN PO ANXIETY / AGITATION 10/10/20 05:30 10/23/20 21:24 Polyethylene Glycol (miraLAX) 17 gm DAILYWSUP PO 10/10/20 17:00 11/04/20 17:08 Trazodone HCl (Desyrel) 50 mg PRN QHS PRN PO INSOMNIA 10/10/20 05:30 10/15/20 01:22 Doxylamine Succinate (Unisom) 25 mg QHS PO 10/10/20 21:00 10/16/20 17:38 DC 10/15/20 19:43 Multivitamins/ Calcium (Thera-M Plus) 1 tab QMWF@0900 PO 10/10/20 09:00 11/02/20 08:29 Pantoprazole Sodium (Protonix) 40 mg HS PO 10/10/20 21:00 11/04/20 20:26 Non-Formulary Medication ([Potassium Tablet] ) 99 mg DAILY PO 10/10/20 09:00 UNV Doxycycline Hyclate (Vibra-Tab) 100 mg BID PO 10/12/20 21:00 10/21/20 22:00 DC 10/21/20 20:13 Memantine (Namenda) 10 mg DAILY PO 10/13/20 09:00 11/04/20 08:59 Lactobacillus Rhamnosus (Culturelle) 1 cap BID PO 10/16/20 09:00 11/04/20 20:25 Melatonin (Melatonin) 3 mg HS PO 10/16/20 21:00 11/04/20 20:26 Quetiapine Fumarate (SEROquel) 12.5 mg DAILY PO 10/19/20 09:00 11/04/20 08:59 Buspirone HCl (Buspar) 10 mg BID PO 10/26/20 21:00 11/04/20 20:25 I have reviewed the current psychotropics carefully including drug interactions. Risk benefit ratio favors no change other than as noted in my dictated progress note. 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
--- NOTE | 2020-11-05 07:20 | PDOC ---
Exam Note: Leonard Note: This note is a late entry for 11/03/2020 covers elements not covered in my initial note. Subjective: The patient was seen individually in the evening of 11/03/2020 with Ryan LEAL, discussed and reviewed the chart. The patient slept 6 hours previous night. He has been confused, often found walking into other patients rooms. Overall there is no change in the patients presentation of behaviors. He has not been disruptive, aggressive, wanders the unit. Review of Systems: No CV, , pulmonary, eye system symptoms on review. Mental Status Exam: The patient is oriented to himself. He is pleasant, oblivious even when I met with him in the dayroom. Insight and judgment, recent and remote memory, attention and concentration, fund of knowledge is poor consistent with his diagnoses. Laboratory Data: Reviewed. Impression: Major neurocognitive disorder Alzheimer vascular with delusion, depression, behavioral disturbance. Impulse control disorder unspecified. Anxiety disorder unspecified. Plan: Maintain rest of the psychotropics unchanged. Assessment: Vital Signs/I&O: Vital Signs Date Time Temp Pulse Resp B/P (MAP) Pulse Ox O2 Delivery O2 Flow Rate FiO2 11/05/20 05:59 97.5 73 19 124/75 (91) 98 11/04/20 06:15 Room Air I & O 11/04/20 11/04/20 11/05/20 14:59 22:59 06:59 Intake Total 720 ml 480 ml Balance 720 ml 480 ml Current Medications: Meds: Current Medications Medications (Trade) Dose Ordered Sig/Kiera Route PRN Reason Start Time Stop Time Status Last Admin Dose Admin Midazolam HCl (Versed) 5 mg 1X ONCE IM 10/09/20 23:00 10/09/20 23:07 DC 10/09/20 23:23 Lactated Ringer's 1,000 ml @ 1,000 mls/hr 1X ONCE IV 10/09/20 23:00 10/09/20 23:59 DC Levofloxacin (Levaquin) 750 mg 1X ONCE PO 10/10/20 01:00 10/10/20 01:01 DC 10/10/20 04:27 Acetaminophen (Tylenol) 650 mg PRN Q6HRS PRN PO MILD PAIN / TEMP > 100.3'F 10/10/20 05:00 Multi-Ingredient Ointment (Analgesic [place]) 1 gera PRN QID PRN TP MUSCLE PAIN 10/10/20 05:00 Al Hydroxide/Mg Hydroxide (Mylanta Plus Xs) 15 ml PRN AFTMEALHC PRN PO DYSPEPSIA 10/10/20 05:00 Magnesium Hydroxide (Milk Of Magnesia) 2,400 mg PRN QHS PRN PO CONSTIPATION 2ND CHOICE 10/10/20 05:00 Aspirin (Aspirin Enteric Coated) 81 mg DAILY08 PO 10/10/20 08:00 11/04/20 08:58 Atorvastatin Calcium (Lipitor) 10 mg QHS PO 10/10/20 21:00 11/04/20 20:25 Bisacodyl (Dulcolax Tab) 5 mg PRN DAILY PRN PO CONSTIPATION 1ST CHOICE 10/10/20 05:30 Buspirone HCl (Buspar) 5 mg BID PO 10/10/20 09:00 10/26/20 17:54 DC 10/26/20 07:50 Calcium Polycarbophil (Fibercon) 1,250 mg DAILY PO 10/10/20 09:00 11/04/20 08:58 Citalopram Hydrobromide (CeleXA) 20 mg DAILY PO 10/10/20 09:00 11/04/20 08:58 Docusate Sodium (Colace) 100 mg PRN DAILY PRN PO HARD STOOLS 10/10/20 05:30 Meloxicam (Mobic) 15 mg HS PO 10/10/20 21:00 11/04/20 20:26 Memantine (Namenda) 5 mg DAILY PO 10/10/20 09:00 10/12/20 16:01 DC 10/12/20 08:05 Olanzapine (ZyPREXA ZYDIS) 2.5 mg PRN BID PRN PO ANXIETY / AGITATION 10/10/20 05:30 10/23/20 21:24 Polyethylene Glycol (miraLAX) 17 gm DAILYWSUP PO 10/10/20 17:00 11/04/20 17:08 Trazodone HCl (Desyrel) 50 mg PRN QHS PRN PO INSOMNIA 10/10/20 05:30 10/15/20 01:22 Doxylamine Succinate (Unisom) 25 mg QHS PO 10/10/20 21:00 10/16/20 17:38 DC 10/15/20 19:43 Multivitamins/ Calcium (Thera-M Plus) 1 tab QMWF@0900 PO 10/10/20 09:00 11/02/20 08:29 Pantoprazole Sodium (Protonix) 40 mg HS PO 10/10/20 21:00 11/04/20 20:26 Non-Formulary Medication ([Potassium Tablet] ) 99 mg DAILY PO 10/10/20 09:00 UNV Doxycycline Hyclate (Vibra-Tab) 100 mg BID PO 10/12/20 21:00 10/21/20 22:00 DC 10/21/20 20:13 Memantine (Namenda) 10 mg DAILY PO 10/13/20 09:00 11/04/20 08:59 Lactobacillus Rhamnosus (Culturelle) 1 cap BID PO 10/16/20 09:00 11/04/20 20:25 Melatonin (Melatonin) 3 mg HS PO 10/16/20 21:00 11/04/20 20:26 Quetiapine Fumarate (SEROquel) 12.5 mg DAILY PO 10/19/20 09:00 11/04/20 08:59 Buspirone HCl (Buspar) 10 mg BID PO 10/26/20 21:00 11/04/20 20:25 I have reviewed the current psychotropics carefully including drug interactions. Risk benefit ratio favors no change other than as noted in my dictated progress note. 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
--- NOTE | 2020-11-05 07:45 | PDOC ---
Exam Note: Leonard Note: This note is a late entry for 11/04/2020 covers elements not covered in my initial note. Subjective: The patient was seen individually in the evening of 11/04/2020 with Ryan LEAL, discussed and reviewed the chart. The patient slept 7 hours previous night. Overall he remains confused but he has been a little more interactive and verbal which is an improvement. Review of Systems: No CV, , pulmonary, eye system symptoms on review. Mental Status Exam: The patient is oriented to himself. Insight and judgment, recent and remote memory, attention and concentration, fund of knowledge is poor consistent with his diagnoses. Laboratory Data: Reviewed. Impression: Major neurocognitive disorder Alzheimer vascular with delusion, depression, behavioral disturbance. Impulse control disorder unspecified. Anxiety disorder unspecified. Plan: Maintain rest of the psychotropics unchanged. Assessment: Vital Signs/I&O: Vital Signs Date Time Temp Pulse Resp B/P (MAP) Pulse Ox O2 Delivery O2 Flow Rate FiO2 11/05/20 05:59 97.5 73 19 124/75 (91) 98 11/04/20 06:15 Room Air I & O 11/04/20 11/04/20 11/05/20 15:00 23:00 07:00 Intake Total 720 ml 480 ml Balance 720 ml 480 ml Current Medications: Meds: Current Medications Medications (Trade) Dose Ordered Sig/Kiera Route PRN Reason Start Time Stop Time Status Last Admin Dose Admin Midazolam HCl (Versed) 5 mg 1X ONCE IM 10/09/20 23:00 10/09/20 23:07 DC 10/09/20 23:23 Lactated Ringer's 1,000 ml @ 1,000 mls/hr 1X ONCE IV 10/09/20 23:00 10/09/20 23:59 DC Levofloxacin (Levaquin) 750 mg 1X ONCE PO 10/10/20 01:00 10/10/20 01:01 DC 10/10/20 04:27 Acetaminophen (Tylenol) 650 mg PRN Q6HRS PRN PO MILD PAIN / TEMP > 100.3'F 10/10/20 05:00 Multi-Ingredient Ointment (Analgesic [place]) 1 gera PRN QID PRN TP MUSCLE PAIN 10/10/20 05:00 Al Hydroxide/Mg Hydroxide (Mylanta Plus Xs) 15 ml PRN AFTMEALHC PRN PO DYSPEPSIA 10/10/20 05:00 Magnesium Hydroxide (Milk Of Magnesia) 2,400 mg PRN QHS PRN PO CONSTIPATION 2ND CHOICE 10/10/20 05:00 Aspirin (Aspirin Enteric Coated) 81 mg DAILY08 PO 10/10/20 08:00 11/04/20 08:58 Atorvastatin Calcium (Lipitor) 10 mg QHS PO 10/10/20 21:00 11/04/20 20:25 Bisacodyl (Dulcolax Tab) 5 mg PRN DAILY PRN PO CONSTIPATION 1ST CHOICE 10/10/20 05:30 Buspirone HCl (Buspar) 5 mg BID PO 10/10/20 09:00 10/26/20 17:54 DC 10/26/20 07:50 Calcium Polycarbophil (Fibercon) 1,250 mg DAILY PO 10/10/20 09:00 11/04/20 08:58 Citalopram Hydrobromide (CeleXA) 20 mg DAILY PO 10/10/20 09:00 11/04/20 08:58 Docusate Sodium (Colace) 100 mg PRN DAILY PRN PO HARD STOOLS 10/10/20 05:30 Meloxicam (Mobic) 15 mg HS PO 10/10/20 21:00 11/04/20 20:26 Memantine (Namenda) 5 mg DAILY PO 10/10/20 09:00 10/12/20 16:01 DC 10/12/20 08:05 Olanzapine (ZyPREXA ZYDIS) 2.5 mg PRN BID PRN PO ANXIETY / AGITATION 10/10/20 05:30 10/23/20 21:24 Polyethylene Glycol (miraLAX) 17 gm DAILYWSUP PO 10/10/20 17:00 11/04/20 17:08 Trazodone HCl (Desyrel) 50 mg PRN QHS PRN PO INSOMNIA 10/10/20 05:30 10/15/20 01:22 Doxylamine Succinate (Unisom) 25 mg QHS PO 10/10/20 21:00 10/16/20 17:38 DC 10/15/20 19:43 Multivitamins/ Calcium (Thera-M Plus) 1 tab QMWF@0900 PO 10/10/20 09:00 11/02/20 08:29 Pantoprazole Sodium (Protonix) 40 mg HS PO 10/10/20 21:00 11/04/20 20:26 Non-Formulary Medication ([Potassium Tablet] ) 99 mg DAILY PO 10/10/20 09:00 UNV Doxycycline Hyclate (Vibra-Tab) 100 mg BID PO 10/12/20 21:00 10/21/20 22:00 DC 10/21/20 20:13 Memantine (Namenda) 10 mg DAILY PO 10/13/20 09:00 11/04/20 08:59 Lactobacillus Rhamnosus (Culturelle) 1 cap BID PO 10/16/20 09:00 11/04/20 20:25 Melatonin (Melatonin) 3 mg HS PO 10/16/20 21:00 11/04/20 20:26 Quetiapine Fumarate (SEROquel) 12.5 mg DAILY PO 10/19/20 09:00 11/04/20 08:59 Buspirone HCl (Buspar) 10 mg BID PO 10/26/20 21:00 11/04/20 20:25 I have reviewed the current psychotropics carefully including drug interactions. Risk benefit ratio favors no change other than as noted in my dictated progress note. 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
[2020-11-05] MEDS: MULTIVITAMIN with MINERAL TABLET. PO SCH (08:48)
[2020-11-05] MEDS: CITALOPRAM 20 MG TABLET. PO SCH (08:48)
[2020-11-05] MEDS: LACTOBACILLUS RHAMNOSUS GG 1 CAPSULE. PO SCH (08:48)
[2020-11-05] MEDS: CALCIUM POLYCARBOPHIL 625 MG TABLET PO SCH (08:48)
[2020-11-05] MEDS: ASPIRIN ENTERIC COATED 81 MG TABLET.DR. PO SCH (08:48)
[2020-11-05] MEDS: QUEtiapine 25 MG TABLET. PO SCH (08:48)
[2020-11-05] MEDS: MEMANTINE 10 MG TABLET. PO SCH (08:48)
[2020-11-05] MEDS: busPIRone 10 MG TABLET. PO SCH (08:48)
--- NOTE | 2020-11-05 22:08 | PDOC ---
Exam Note: Leonard Note: Please also refer to the separate dictated note~for this date of service dictated separately.~Patient seen individually. Discussed the patient with Nursing staff reviewed the chart.~Reviewed interim history and current functioning. Reviewed vital signs,~Labs/ Radiology~and current medications noted below. Continue current treatment with the changes noted in the dictated addendum note Assessment: Vital Signs/I&O: Vital Signs Date Time Temp Pulse Resp B/P (MAP) Pulse Ox O2 Delivery O2 Flow Rate FiO2 11/05/20 05:59 97.5 73 19 124/75 (91) 98 11/04/20 06:15 Room Air I & O 11/04/20 11/04/20 11/05/20 15:00 23:00 07:00 Intake Total 720 ml 480 ml Balance 720 ml 480 ml Current Medications: Meds: Current Medications Medications (Trade) Dose Ordered Sig/Kiera Route PRN Reason Start Time Stop Time Status Last Admin Dose Admin Midazolam HCl (Versed) 5 mg 1X ONCE IM 10/09/20 23:00 10/09/20 23:07 DC 10/09/20 23:23 Lactated Ringer's 1,000 ml @ 1,000 mls/hr 1X ONCE IV 10/09/20 23:00 10/09/20 23:59 DC Levofloxacin (Levaquin) 750 mg 1X ONCE PO 10/10/20 01:00 10/10/20 01:01 DC 10/10/20 04:27 Acetaminophen (Tylenol) 650 mg PRN Q6HRS PRN PO MILD PAIN / TEMP > 100.3'F 10/10/20 05:00 11/05/20 14:25 DC Multi-Ingredient Ointment (Analgesic [place]) 1 gera PRN QID PRN TP MUSCLE PAIN 10/10/20 05:00 11/05/20 14:25 DC Al Hydroxide/Mg Hydroxide (Mylanta Plus Xs) 15 ml PRN AFTMEALHC PRN PO DYSPEPSIA 10/10/20 05:00 11/05/20 14:25 DC Magnesium Hydroxide (Milk Of Magnesia) 2,400 mg PRN QHS PRN PO CONSTIPATION 2ND CHOICE 10/10/20 05:00 11/05/20 14:25 DC Aspirin (Aspirin Enteric Coated) 81 mg DAILY08 PO 10/10/20 08:00 11/05/20 14:25 DC 11/05/20 08:48 Atorvastatin Calcium (Lipitor) 10 mg QHS PO 10/10/20 21:00 11/05/20 14:25 DC 11/04/20 20:25 Bisacodyl (Dulcolax Tab) 5 mg PRN DAILY PRN PO CONSTIPATION 1ST CHOICE 10/10/20 05:30 11/05/20 14:25 DC Buspirone HCl (Buspar) 5 mg BID PO 10/10/20 09:00 10/26/20 17:54 DC 10/26/20 07:50 Calcium Polycarbophil (Fibercon) 1,250 mg DAILY PO 10/10/20 09:00 11/05/20 14:25 DC 11/05/20 08:48 Citalopram Hydrobromide (CeleXA) 20 mg DAILY PO 10/10/20 09:00 11/05/20 14:25 DC 11/05/20 08:48 Docusate Sodium (Colace) 100 mg PRN DAILY PRN PO HARD STOOLS 10/10/20 05:30 11/05/20 14:25 DC Meloxicam (Mobic) 15 mg HS PO 10/10/20 21:00 11/05/20 14:25 DC 11/04/20 20:26 Memantine (Namenda) 5 mg DAILY PO 10/10/20 09:00 10/12/20 16:01 DC 10/12/20 08:05 Olanzapine (ZyPREXA ZYDIS) 2.5 mg PRN BID PRN PO ANXIETY / AGITATION 10/10/20 05:30 11/05/20 14:25 DC 10/23/20 21:24 Polyethylene Glycol (miraLAX) 17 gm DAILYWSUP PO 10/10/20 17:00 11/05/20 14:25 DC 11/04/20 17:08 Trazodone HCl (Desyrel) 50 mg PRN QHS PRN PO INSOMNIA 10/10/20 05:30 11/05/20 14:25 DC 10/15/20 01:22 Doxylamine Succinate (Unisom) 25 mg QHS PO 10/10/20 21:00 10/16/20 17:38 DC 10/15/20 19:43 Multivitamins/ Calcium (Thera-M Plus) 1 tab QMWF@0900 PO 10/10/20 09:00 11/05/20 14:25 DC 11/05/20 08:48 Pantoprazole Sodium (Protonix) 40 mg HS PO 10/10/20 21:00 11/05/20 14:25 DC 11/04/20 20:26 Non-Formulary Medication ([Potassium Tablet] ) 99 mg DAILY PO 10/10/20 09:00 UNV Doxycycline Hyclate (Vibra-Tab) 100 mg BID PO 10/12/20 21:00 10/21/20 22:00 DC 10/21/20 20:13 Memantine (Namenda) 10 mg DAILY PO 10/13/20 09:00 11/05/20 14:25 DC 11/05/20 08:48 Lactobacillus Rhamnosus (Culturelle) 1 cap BID PO 10/16/20 09:00 11/05/20 14:25 DC 11/05/20 08:48 Melatonin (Melatonin) 3 mg HS PO 10/16/20 21:00 11/05/20 14:25 DC 11/04/20 20:26 Quetiapine Fumarate (SEROquel) 12.5 mg DAILY PO 10/19/20 09:00 11/05/20 14:25 DC 11/05/20 08:48 Buspirone HCl (Buspar) 10 mg BID PO 10/26/20 21:00 11/05/20 14:25 DC 11/05/20 08:48 I have reviewed the current psychotropics carefully including drug interactions. Risk benefit ratio favors no change other than as noted in my dictated progress note. 

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
== END 2020-11-05 13:23 | DRG 57 ==
LOC: ER 19:42 → GEROPSY 10-10 04:42
PROVIDERS: ADMIT Psychiatry & Neurology Psychiatry; ATTEND Psychiatry & Neurology Psychiatry
DX: G30.9 Alzheimer's disease, unspecified (principal); F01.51 Vascular dementia, unspecified severity, with behavioral disturbance; F02.81 Dementia in other diseases classified elsewhere, unspecified severity, with behavioral disturbance; N39.0 Urinary tract infection, site not specified; J44.9 Chronic obstructive pulmonary disease, unspecified; I10 Essential (primary) hypertension; E78.5 Hyperlipidemia, unspecified; F32.9 Major depressive disorder, single episode, unspecified; F41.1 Generalized anxiety disorder; F63.9 Impulse disorder, unspecified
CPT/HCPCS: 36415; 80053; 80061; 81001; 82306; 82607; 83036; 83540; 83550; 83735; 84436; 84443; 84480; 85025; 85379; 86592; 87086; 93005; 96372; J2250; 97116; 99285-25